=== PATIENT | female | born 1975 | race Caucasian/White ===

== ENCOUNTER 2021-02-21 19:16 | Emergency (ER) | payer OTHER, SELFPAY ==
--- NOTE | ~2021-02-21 | XR_ITS ---
XR foot LT min 3V DATE: 02/21/2021 19:38 INDICATION: Chair dropped on top of foot. Pain of first metatarsal. TECHNIQUE: 4 views COMPARISON: 06/03/2011 left foot FINDINGS: No fracture or dislocation, periosteal reaction or bone destruction. IMPRESSION: Negative Reviewed, dictated and finalized at location A. IMPRESSION: Negative
--- NOTE | 2021-02-21 19:27 | ED.LOWEXIN ---
HPI - Extremity Injury (Lower) General Chief Complaint: Extremity Injury, Lower Stated Complaint: left foot injury Time Seen by Provider: 02/21/21 19:27 Source: patient and RN notes reviewed Mode of arrival: ambulatory Limitations: no limitations History of Present Illness HPI Narrative: 46-year-old female presents to the [facility] with complaints of left dorsal aspect foot pain after dropping a chair on her foot. Patient states the pain feels like when she broke her other foot. Has full range of motion. Is limping favoring the left foot. Positive pedal pulse. Sensation intact in all 5 toes. Capillary refill under 2 seconds Related Data Home Medications Medication Instructions Recorded Confirmed No Home Medications 02/21/21 02/21/21 Allergies Allergy/AdvReac Type Severity Reaction Status Date / Time codeine Allergy Mild Nausea and Verified 03/02/19 17:12 Vomiting latex Allergy Mild Verified 03/02/19 17:12 naproxen Allergy Mild Verified 03/02/19 17:12 nitrofurantoin Allergy Mild Nausea and Verified 03/02/19 17:12 Vomiting tramadol Allergy Mild Verified 03/02/19 17:12 ibuprofen Allergy Unknown Verified 03/02/19 17:12 prednisone Allergy Unknown Verified 03/02/19 17:12 Review of Systems Review of Systems: All systems reviewed & are unremarkable except as noted in HPI and below Constitutional: Constitutional: Reports no additional constitutional complaints Eyes: Eyes: Reports no additional eye complaints ENT: Reports system reviewed and no additional complaints, except as documented Cardiovascular: Cardiovascular: Reports no additional cardiovascular complaints Respiratory: Respiratory: Reports no additional respiratory complaints Musculoskeletal: Musculoskeletal: Reports as per HPI (Dorsal aspect left foot), Denies arthralgias and Denies joint swelling Comments: Pain dorsal aspect left foot Integumentary/Breasts: Skin/Breast: Reports system reviewed and no additional complaints, except as docu Neurologic: Reports system reviewed and no additional complaints, except as documented Psychiatric: Psychiatric: Reports no additional psychiatric complaints PMFSH Social History Social History Gender identity (if verbalized by the patient): Female Comments At the time of my signature, I reviewed and agree with the nursing past medical, surgical, social, and family history. There is no relevant family history pertinent to the patient complaint. Exam Const: General: healthy appearing, no acute distress and alert Nutritional Appearance: well nourished Orientation/consciousness: patient oriented x3 HENMT: Head: normal to inspection Neck: Neck: normal visual inspection, no lymphadenopathy and no meningeal signs Chest: Chest palpation & inspection: normal inspection of the chest Resp: Effort & Inspection: normal respiratory effort and no use of accessory muscles Cardio: Rate: regular rate Rhythm: regular rhythm Skin: General skin exam: normal color Rashes: no rashes Wounds: no wounds Neuro: General: patient oriented x3, moves all extremities and no meningeal signs Speech: normal speech Gait exam (Neuro): Normal gait present Extrem: General: normal to inspection Left lower extremity: full ROM, normal capillary refill and foot Details: normal capillary refill, tenderness Location: of the dorsal foot Location: medially and of the medial foot, ecchymosis and vascular exam Details: dorsalis pedis pulse present and normal capillary refill; no edema, no abrasions and no lacerations; no edema and joint enlargement noted Ankle/foot/toe images: 1. Bruising and tenderness noted Psych: Appearance: grossly normal and well kempt Mental Status: mental status grossly normal Affect: normal affect Attitude: cooperative Thought content: Yes Normal thought content present Course Vital Signs Vital signs: Vital Signs Temperature 97.7 F 02/21/
[2021-02-21 19:32] VITALS: BP 141/95; PULSE 85; RESP 20; TEMP 36.5; O2SAT 99
== END 2021-02-21 19:49 | disposition home or self-care (01) ==
PROVIDERS: Emergency Provider Nurse Practitioner; PCP Nurse Practitioner Family
DX: S90.32XA Contusion of left foot, initial encounter (principal); W20.8XXA Other cause of strike by thrown, projected or falling object, initial encounter
CPT/HCPCS: 73630; 99213; G0463

== ENCOUNTER 2022-06-28 14:43 | Outpatient (CLI) | payer OTHER, SELFPAY ==
--- NOTE | ~2022-06-28 | XR_ITS ---
XR lumbar spine 2-3V 06/28/2022 15:11 Indication: Back pain Procedure: 3 views lumbar spine Comparison: No prior studies for comparison. Findings: Normal lumbar lordosis. There are laminectomy changes at L5. Vertebral body heights are gilmar ntained. No significant disc narrowing. No acute fracture or traumatic malalignment. Sacral foramen a re symmetric. There is an IUD in the pelvis. Impression: 1: No significant abnormality of the lumbar spine. Reviewed, dictated and finalized at location A. Impression: 1: No significant abnormality of the lumbar spine.
--- NOTE | ~2022-06-28 | XR_ITS ---
XR thoracic spine 3V 06/28/2022 15:10 Indication: Back pain Procedure: 4 views thoracic spine Comparison: No prior studies for comparison. Findings: There is mild levoscoliosis of the thoracic spine. Vertebral body heights are maintained. P edicles intact. No paraspinal soft tissue abnormality. Surrounding osseous structures are unremarkabl e. There are cholecystectomy clips. Impression: 1: Mild levoscoliosis. Reviewed, dictated and finalized at location A. Impression: 1: Mild levoscoliosis.
--- NOTE | ~2022-06-28 | XR_ITS ---
XR cervical spine 4-5V 06/28/2022 15:10 Indication: Neck pain Procedure: 4 view cervical spine Comparison: 01/17/2012 Findings: There is normal alignment of the cervical spine. Vertebral body and disc heights are preser lele. No prevertebral soft tissue swelling. Lung apices are normal. Odontoid process is normal. Impression: 1: No significant abnormality of the cervical spine. Reviewed, dictated and finalized at location A. Impression: 1: No significant abnormality of the cervical spine.
--- NOTE | ~2022-06-28 | XR_ITS ---
XR shoulder LT min 2V 06/28/2022 15:11 INDICATION: Left shoulder pain PROCEDURE: 4 views left shoulder COMPARISON: No prior studies for comparison. FINDINGS: Fracture, dislocation or subluxation is not identified. The soft tissues appear within norm al limits. No foreign bodies are identified. IMPRESSION: 1: NO ACUTE BONE OR JOINT ABNORMALITY IDENTIFIED. Reviewed, dictated and finalized at location A.
== END 2022-06-28 14:44 | disposition home or self-care (01) ==
PROVIDERS: PCP Nurse Practitioner Family; Visit Provider Nurse Practitioner Family
DX: M25.512 Pain in left shoulder (principal); R20.2 Paresthesia of skin; M54.9 Dorsalgia, unspecified; Z97.5 Presence of (intrauterine) contraceptive device; M41.9 Scoliosis, unspecified; M54.2 Cervicalgia; M54.6 Pain in thoracic spine
CPT/HCPCS: 72050; 72072; 72100; 73030

== ENCOUNTER 2022-10-03 10:26 | Outpatient (CLI) | payer OTHER, SELFPAY ==
--- NOTE | ~2022-10-03 | MM_ITS ---
EXAMINATION: MM screening keenan BI w socorro HISTORY: Screening mammogram TECHNIQUE: Craniocaudal and mediolateral oblique 3-D tomosynthesis images were obtained and synthetic 2-D images were generated. CAD analysis was submitted and interpreted. COMPARISON: 02/22/2017 bilateral screening mammogram BREAST PARENCHYMAL COMPOSITION: The breasts are almost entirely fatty. FINDINGS: There is no evidence of suspicious mass, calcification, or architectural distortion to sugg est malignancy in either breast. There has been no suspicious interval change. IMPRESSION: 1. No mammographic evidence of malignancy. 2. Recommend routine screening mammography in one year. BI-RADS Category 1: Negative Reviewed, dictated and finalized at location A. M1A1 [employer]MAN
== END 2022-10-03 10:27 | disposition home or self-care (01) ==
LOC: ANHIMG 10:28
PROVIDERS: PCP Nurse Practitioner Family; Visit Provider Nurse Practitioner Family
DX: Z12.31 Encounter for screening mammogram for malignant neoplasm of breast (principal)
CPT/HCPCS: 77063; 77067

== ENCOUNTER 2022-10-10 09:52 | Outpatient (CLI) | payer OTHER, SELFPAY ==
--- NOTE | ~2022-10-10 | DEXA_ITS ---
Bone Density Report Name: JACINTA JACKSON Age: 47 Sex: Female Ethnicity: White Date of : 1975 Indication: postmenopausal; height loss; inflammatory bowel disease; cancer; Referring Provider: JW, ES Weiss Study: Bone densitometry was performed. Exam Date: October 10, 2022 Accession number: [id number] Bone Density: Region BMD T-score Z-score Classification AP Spine(L1-L4) 0.937 -1.0 -0.5 Normal Femoral Neck (Left) 0.695 -1.4 -0.9 Osteopenia Total Hip (Left) 0.916 -0.2 0.1 Normal Femoral Neck (Right) 0.677 -1.6 -1.1 Osteopenia Total Hip (Right) 0.903 -0.3 0.0 Normal Total Hip Mean 0.909 -0.3 0.1 Normal World Health Organization criteria for BMD impression classify patients as: Normal (T-score at or above -1.0), Osteopenia (T-score between -1.0 and -2.5), or Osteoporosis (T-score at or below -2.5). 10-year Fracture Risk(1): Major Osteoporotic Fracture 3.1% Hip Fracture 0.3% Reported Risk Factors: [place] (), Neck BMD=0.677, BMI=33.4 (1) FRAX(R) Version 3.08. Fracture probability calculated for an untreated patient. Fracture probability may be lower if the patient has received treatment. Clinical Information Provided by Patient: Has used the following medications: Vitamin D Has the following medical conditions: Cancer, Inflammatory bowel diseases Patient maximum height was 68 Does not regularly consume dairy products Drinks caffeinated beverages Onset of menses at age 13 Number of children 5 Impression: The patient has low bone mass, based on the Right Femoral Neck T-score. The patient has an estimated ten-year risk of hip fracture of 0.3% and an estimated ten-year risk of major fracture of 3.1%, based on the WHO FRAX algorithm. Discussion: BONE DENSITY IS LOW AT ONE OR MORE SKELETAL SITES. This patient's lowest T-score is low at one or more skeletal sites. It meets the World Health Organization's (WHO) criteria for ?low bone mass? (T-score between -1.0 and -2.5). The patient's 10-year risk of fracture as calculated by FRAX is less than the threshold where pharmacological therapy is recommended by the National Osteoporosis Foundation (NOF). However, all treatment decisions require clinical judgment and consideration of individual patient factors, including patient preferences, comorbidities, previous drug use, risk factors not captured in the FRAX model (e.g., frailty, falls, vitamin D deficiency, increased bone turnover, interval significant decline in bone density) and possible under or overestimation of fracture risk by FRAX. The patient should follow a healthful lifestyle (good nutrition with adequate calcium and vitamin D, and appropriate weight-bearing exercise). Follow-Up: Consider repeating this study in 2 to 3 years to reassess this patient's st
== END 2022-10-10 09:53 | disposition home or self-care (01) ==
LOC: ANHIMG 09:53
PROVIDERS: PCP Nurse Practitioner Family; Visit Provider Nurse Practitioner Family
DX: Z78.0 Asymptomatic menopausal state (principal); M85.852 Other specified disorders of bone density and structure, left thigh; M85.851 Other specified disorders of bone density and structure, right thigh
CPT/HCPCS: 77080

== ENCOUNTER 2023-06-22 17:37 | Emergency (ER) | payer OTHER, SELFPAY ==
[2023-06-22 17:48] VITALS: BP 138/87; PULSE 79; RESP 18; TEMP 36.4; O2SAT 100
--- NOTE | 2023-06-22 18:04 | ED.GENADULT ---
HPI - General Adult General Chief complaint: Anxiety Stated complaint: anxiety Time Seen by Provider: 06/22/23 17:55 Source: patient and RN notes reviewed Mode of arrival: ambulatory Limitations: no limitations History of Present Illness HPI narrative: Patient presents today complaining of intermittent anxiety that has been worse over the past 2 weeks. Anxiety symptoms include head pressure, ?pins and needles in her finger tips, palpitations, racing mind. Denies depression, SI, HI. Patient states that she has an old prescription of Xanax from 2017 that she has been using intermittently, but is currently out. She does not have an appointment with her PCP for 2 weeks and is wondering if she can receive a prescription for some medication that may help her out until that time. Related Data Allergies Allergy/AdvReac Type Severity Reaction Status Date / Time codeine Allergy Mild Nausea and Verified 03/02/19 17:12 Vomiting latex Allergy Mild Verified 03/02/19 17:12 naproxen Allergy Mild Verified 03/02/19 17:12 nitrofurantoin Allergy Mild Nausea and Verified 03/02/19 17:12 Vomiting tramadol Allergy Mild Verified 03/02/19 17:12 ibuprofen Allergy Unknown Verified 03/02/19 17:12 prednisone Allergy Unknown Verified 03/02/19 17:12 Review of Systems Review of Systems: CONSTITUTIONAL: Denies body aches, fever, chills, or sweats. EYES: Denies visual changes, redness, or discharge. ENT: Denies rhinorrhea, congestion, sore throat, or otalgia. CARDIOVASCULAR: Denies chest pain, palpitations, or edema. RESPIRATORY: Denies cough or dyspnea. GASTROINTESTINAL: Denies abdominal pain, nausea, vomiting, or diarrhea. GENITOURINARY: Denies dysuria or hematuria. SKIN: Denies rash, itching, or wounds. MUSCULOSKELETAL: Denies back pain, joint pain, or myalgia. NEUROLOGIC: Denies headache, numbness, tingling, or weakness. PSYCH: + anxiety PMFSH Social History Social History Gender identity (if verbalized by the patient): Female Comments At time of signature, I have reviewed and agree with nursing past medical, surgical, social and family history unless otherwise noted. Please see nursing chart for further information. There is no relevant family history pertinent to the presenting complaint Exam Narrative: GENERAL: Well-appearing, well-nourished, and in no acute distress. HEAD: Normocephalic, atraumatic. EYES: EOMI. No redness or drainage. Conjunctivae normal. ENT: Mucous membranes pink and moist. NECK: Normal AROM. CHEST: No respiratory distress. Clear to auscultation. HEART: Regular rate and rhythm. No murmur appreciated. Normal peripheral pulses. EXTREMITIES: Normal range of motion. No edema. SKIN: Warm, dry, no rash. Capillary refill normal. Normal skin turgor. NEURO: No focal deficits. Alert and oriented x3. Gait steady. PSYCH: Normal affect. No signs of depression or anxiety. Course Course Level of Care: [facility] Visit Vital Signs Vital signs: Vital Signs Temperature 97.5 F L 06/22/23 17:48 Pulse Rate 79 06/22/23 17:48 Respiratory Rate 18 06/22/23 17:48 Blood Pressure 138/87 06/22/23 17:48 Pulse Oximetry 100 06/22/23 17:48 Oxygen Delivery Room Air 06/22/23 17:48 Temperature 97.5 F L 06/22/23 17:48 Pulse Rate 79 06/22/23 17:48 Respiratory Rate 18 06/22/23 17:48 Blood Pressure 138/87 06/22/23 17:48 Pulse Oximetry 100 06/22/23 17:48 Oxygen Delivery Room Air 06/22/23 17:48 Reviewed. Pt has been instructed to follow up with her PCP regarding her elevated blood pressure today. Medical Decision Making MDM Narrative Medical decision making narrative: Discussed with patient that Xanax and other benzodiazepines are not typically prescribed at [facility]. Agrees with plan for prescription for doxycycline and will follow-up with her PCP as soon as possible for further treatment. Anticipatory gu
== END 2023-06-22 18:15 | disposition home or self-care (01) ==
PROVIDERS: Emergency Provider Nurse Practitioner; PCP Nurse Practitioner Family
DX: F41.9 Anxiety disorder, unspecified (principal)
CPT/HCPCS: 99213; G0463

== ENCOUNTER 2023-10-07 15:44 | Emergency (ER) | payer OTHER, SELFPAY ==
[2023-10-07 16:25] VITALS: BP 129/90; PULSE 72; RESP 16; TEMP 37.4; O2SAT 99
--- NOTE | 2023-10-07 16:34 | PC.NURSE ---
pt states she started prozac and amitriptyline four days ago and is concerned that she has serotonin syndrome. Pt is with family member.
--- NOTE | 2023-10-07 17:36 | ED.GENADULT ---
HPI - General Adult General Chief complaint: Psychiatric Symptoms <Marcos Hopkins PA-C - Last Filed: 10/07/23 17:40> Stated complaint: MED REACTION, HASN'T SLEPT IN 20 DAYS <Marcos Hopkins PA-C - Last Filed: 10/07/23 17:40> Time Seen by Provider: 10/07/23 17:36 <Marcos Hopkins PA-C - Last Filed: 10/07/23 17:40> Source: patient <Marcos Hopkins PA-C - Last Filed: 10/07/23 17:40> Mode of arrival: ambulatory <LATRICIA Rajan Last Filed: 10/07/23 17:40> Limitations: no limitations <Marcos Hopkins PA-C - Last Filed: 10/07/23 17:40> History of Present Illness HPI narrative: This is a 48-year-old female who presents to the ED with chief complaint of extreme anxiety for the past month. Reports that she has been dealing with any increasing anxiety ever since mid August. She states that she has not slept in 20 days. Reports that her PCP started her on Prozac a few days ago. She as been trying hydroxyzine, zolpidem, trazodone over the last month for sleeping without relief. Endorses palpitations and whole-body tingling. Endorses ?intrusive thoughts and ?about falling asleep and never waking up. She states she would never harm herself because she has kids. Denies fevers, chills, chest pain, shortness of breath, abdominal pain, vomiting, diarrhea. History of thyroidectomy. <Marcos Hopkins PA-C - Last Filed: 10/07/23 17:40> Related Data Allergies/adverse reactions: Allergies Allergy/AdvReac Type Severity Reaction Status Date / Time codeine Allergy Mild Nausea and Verified 09/25/23 13:10 Vomiting latex Allergy Mild Unknown Verified 09/25/23 13:10 naproxen Allergy Mild Unknown Verified 09/25/23 13:10 nitrofurantoin Allergy Mild Nausea and Verified 09/25/23 13:10 Vomiting tramadol Allergy Mild Unknown Verified 09/25/23 13:10 ibuprofen Allergy Unknown Unknown Verified 09/25/23 13:10 prednisone Allergy Unknown Unknown Verified 09/25/23 13:10 <Marcos Hopkins PA-C - Last Filed: 10/07/23 17:40> Review of Systems Review of Systems: All systems as dictated in HPI <LATRICIA Rajan Last Filed: 10/07/23 17:40> PMFSH Past Medical History Medical History: Medical History (Updated 10/07/23 @ 19:41 by Tiago Noble MD) Abdominal discomfort Early satiety Weight loss <Marcos Hopkins PA-C - Last Filed: 10/07/23 17:40> Social History Social History: Social History Smoking status: Never smoker Substance use type: does not use Gender identity (if verbalized by the patient): Female <Marcos Hopkins PA-C - Last Filed: 10/07/23 17:40> Exam Narrative: GENERAL: Well-appearing, well-nourished, and in no acute distress. HEAD: Normocephalic, atraumatic. EYES: PERRLA and EOMI. ENT: Nares clear, no rhinorrhea or epistaxis. Mucous membranes moist. Oropharynx without tonsillar hypertrophy exudate or other lesions. NECK: Supple. No adenopathy or masses. CHEST: No respiratory distress. Clear to auscultation. No wheezes rales or rhonchi HEART: Regular rate and rhythm. No murmur heard. Normal peripheral pulses. ABDOMEN: Soft, nontender, nondistended, normal active bowel sounds. MSK: Normal range of motion. No edema. SKIN: Warm, dry, no rash. NEURO: Alert and oriented x3. No focal deficits. PSYCH: Anxious mood. Blunted affect. Verbalizes passive suicidal ideations. No SI plan. no HI. No delusion or hallucination. <Macros Hopkins PA-C - Last Filed: 10/07/23 17:40> Course Vital Signs Vital signs: Vital Signs Temperature 99.3 F 10/07/23 16:25 Pulse Rate 72 10/07/23 16:25 Respiratory Rate 16 10/07/23 16:25 Blood Pressure 129/90 10/07/23 16:25 Pulse Oximetry 99 10/07/23 16:25 Oxygen Delivery Room Air 10/07/23 16:25 Temperature 99.3 F 10/07/23 16:25 Pulse Rate 72 10/07/23 16:25 Respiratory Rate 16 10/07/23 16:25 Blood Pressure 129/90 10/07/23
[2023-10-07 18:07] LABS: Basophils Absolute Auto 0.1 K/mm3 (0.0-0.1); Basophils Percent Auto 0.8 % (0.2-1.2); Eosinophils Percent Auto 0.4 % (0-4.4); Hematocrit 46.5 % (37.0-47.0); Hemoglobin 15.1 g/dL (12.0-15.0); Immature Granulocyte Absolute 0.02 K/mm3 (0.00-0.031); Immature Granulocyte Percent A 0.3 % (0-0.5); Lymphocytes Absolute Auto 2.35 K/mm3 (0.9-3.2); Lymphocytes Percent Auto 32.5 % (18.3-44.2); Mean Corpuscular HGB Conc 32.5 g/dl (32-36); Mean Corpuscular Hemoglobin 30.9 pg (26-34); Mean Corpuscular Volume 95.1 fl (80-100); Mean Platelet Volume 10.9 fl (7.4-10.4); Monocytes Absolute Auto 0.5 K/mm3 (0.1-0.6); Monocytes Percent Auto 7.5 % (2.6-8.5); Neutrophils Absolute Auto 4.2 K/mm3 (1.3-6.7); Neutrophils Percent Auto 58.5 % (45.5-73.1); Platelet Count Result 302 k/mm3 (150-375); Red Blood Count 4.89 M/mm3 (4.2-5.4); Red Cell Distribution Width 12.2 % (11.5-14.5); White Blood Count 7.2 K/mm3 (4.5-10.0)
[2023-10-07 18:12] LABS: Appearance Urine Cloudy (Clear); Bacteria Urine None Seen /hpf; Bilirubin Urine Negative (Negative); Blood Urine Negative (Negative); Color Urine Yellow (Yellow); Glucose Urine UA Negative (Negative); Ketones Urine Negative (Negative); Leukocyte Esterase Ur Negative LEU/UL (Negative); Nitrate Urine Negative (Negative); Non Pathogenic Casts 0-2; Protein Urine Negative (Negative); RBC Urine 0-2 /hpf (0-2); Specific Grav Ur 1.011 (1.001-1.035); Squamous Epithelial Cell Urine None seen /hpf (Few); Urobilinogen Urine 0.2 mg/dL (<2.0); WBC Urine 0-5 /hpf
[2023-10-07 18:19] LABS: Add Urine Microscopic? YES
[2023-10-07 18:20] LABS: Acetaminophen < 10 ug/mL (10-30); Ethanol < 10 mg/dL (<10); Salicylate < 1.0 mg/dL (2-20)
[2023-10-07 18:25] LABS: Anion Gap 5 mmol/L (8-16); Blood Urea Nitrogen 8 mg/dL (7-17); Calcium 9.7 mg/dL (8.4-10.2); Carbon Dioxide 32 mmol/L (22-30); Chloride 102 mmol/L (98-107); Estimated Glomerular Filt Rate > 60; Glucose 94 mg/dL (65-110); Potassium 3.9 mmol/L (3.4-5.0); Sodium 139 mmol/L (137-145)
[2023-10-07 18:38] LABS: Barbiturate Screen Urine Negative (Negative); Benzodiazepines Screen Urine Negative (Negative)
[2023-10-07 18:42] LABS: Amphetamine Screen Urine Negative (Negative); Cannabinoid Screen Urine Positive (Negative); Cocaine Screen Urine Negative (Negative); Methadone Screen Urine Negative (Negative); Opiate Screen Urine Negative (Negative)
[2023-10-07 18:48] LABS: Phencyclidine Screen Urine Negative (Negative)
[2023-10-07] MEDS: LORazepam (*CRX) 1 MG TABLET PO (19:51)
[2023-10-07 20:03] VITALS: BP 120/82; PULSE 84; RESP 15; O2SAT 100
== END 2023-10-07 20:04 | disposition home or self-care (01) ==
PROVIDERS: Physician Assistant; Emergency Provider Emergency Medicine; PCP Family Medicine
DX: F41.9 Anxiety disorder, unspecified (principal); G47.00 Insomnia, unspecified; I45.10 Unspecified right bundle-branch block
CPT/HCPCS: 36415; 80048; 80307; 81001; 81025; 84443; 85025; 93005; 99283; A9270

== ENCOUNTER 2023-10-09 15:36 | Emergency (ER) | payer OTHER, SELFPAY ==
[2023-10-09 16:07] VITALS: BP 111/83; PULSE 80; RESP 20; TEMP 36.6; O2SAT 99
[2023-10-09 18:33] VITALS: BP 126/88; PULSE 82; RESP 18; TEMP 36.3; O2SAT 100
--- NOTE | 2023-10-09 19:40 | ED.GENADULT ---
HPI - General Adult General Chief complaint: Unspecified Stated complaint: havent slept Time Seen by Provider: 10/09/23 18:31 History of Present Illness HPI narrative: 48-year-old female with history of anxiety and insomnia reports for evaluation for continued anxiety and insomnia. Patient was seen in our ER 2 days ago for the same issue. Patient states she has not been able to sleep since September 08. She was given a dose of Ativan 1 mg which allowed her to sleep that night . She was sent home with hydroxyzine which he states has not been helping. She followed up with her PCP office the next day referred her to psychiatrist and gave her 1 0.5mg dose of Ativan which did not provide relief.. Patient saw his psychiatrist today and had blood work done. She was told that she cannot be started on any medications until the blood work comes back and has a follow-up appointment scheduled in 2 weeks. The patient states she is extremely anxious and having difficulty sleeping and is requesting more Ativan. She reports a prior prescription for Xanax by a previous PCP but she has run out of. She is currently taking Prozac 10 mg. Patient states she has tried trazodone, hydroxyzine, Ambien, Benadryl, Unisom, CBT without relief. She is also following with a counselor. Denies alcohol or drug use, denies visual or auditory hallucinations, denies SI or HI. Related Data Allergies Allergy/AdvReac Type Severity Reaction Status Date / Time codeine Allergy Mild Nausea and Verified 10/09/23 16:11 Vomiting latex Allergy Mild Unknown Verified 10/09/23 16:11 naproxen Allergy Mild Unknown Verified 10/09/23 16:11 nitrofurantoin Allergy Mild Nausea and Verified 10/09/23 16:11 Vomiting tramadol Allergy Mild Unknown Verified 10/09/23 16:11 ibuprofen Allergy Unknown Unknown Verified 10/09/23 16:11 prednisone Allergy Unknown Unknown Verified 10/09/23 16:11 Review of Systems Review of Systems: CONSTITUTIONAL: Denies fever, chills, or sweats. EYES: Denies visual changes, redness, or discharge. ENT: Denies rhinorrhea, congestion, sore throat, or otalgia. CARDIOVASCULAR: Denies chest pain, palpitations, or edema. RESPIRATORY: Denies cough or dyspnea. GASTROINTESTINAL: Denies abdominal pain, nausea, vomiting, or diarrhea. GENITOURINARY: Denies dysuria or hematuria. SKIN: Denies rash or itching. MUSCULOSKELETAL: Denies back pain, joint pain, or myalgia. NEUROLOGIC: Denies headache, numbness, or weakness. PSYCHIATRIC: See HPI PMF Past Medical History Medical History Abdominal discomfort Early satiety Weight loss Social History Social History Smoking status: Never smoker Substance use type: does not use Gender identity (if verbalized by the patient): Female Exam Narrative: GENERAL: Well-appearing, well-nourished, and in no acute distress. HEAD: Normocephalic, atraumatic. NECK: Supple. CHEST: Clear to auscultation. No respiratory distress. HEART: Regular rate and rhythm. No murmur heard. Normal peripheral pulses. EXTREMITIES: Normal range of motion. No edema. SKIN: Warm, dry, no rash. NEURO: No focal deficits. Alert and oriented x3 PSYCH: Anxious appearing. Good insight. No hallucinations. No SI/H. Course Vital Signs Vital signs: Vital Signs Temperature 97.8 F 10/09/23 16:07 Pulse Rate 80 10/09/23 16:07 Respiratory Rate 20 10/09/23 16:07 Blood Pressure 111/83 10/09/23 16:07 Pulse Oximetry 99 10/09/23 16:07 Oxygen Delivery Room Air 10/09/23 16:07 Temperature 97.4 F L 10/09/23 18:33 Pulse Rate 82 10/09/23 18:33 Respiratory Rate 18 10/09/23 18:33 Blood Pressure 126/88 10/09/23 18:33 Pulse Oximetry 100 10/09/23 18:33 Oxygen Delivery Room Air 10/09/23 16:07 Medical Decision Making MDM Narrative Medical decision making narrative: 48 y/o F with a hx of anxiety an
[2023-10-09] MEDS: LORazepam (*CRX) 1 MG TABLET PO (20:03)
== END 2023-10-09 20:07 | disposition home or self-care (01) ==
PROVIDERS: Emergency Provider Physician Assistant
DX: F41.9 Anxiety disorder, unspecified (principal)
CPT/HCPCS: 99283; A9270

== ENCOUNTER 2023-10-10 14:57 | Outpatient (CLI) | payer OTHER, SELFPAY ==
--- NOTE | ~2023-10-10 | CT_ITS ---
EXAMINATION: CT abdomen pelvis w con DATE: 10/10/2023 15:37 INDICATION: 80 pound weight loss and 5 months. Early satiety. Nausea. Constipation. TECHNIQUE: Computed tomography (CT) of the abdomen and pelvis was performed with 100 CC Omnipaque 350 intravenous contrast. Automated exposure control and iterative reconstruction technique were employe d. Exam dose: 386.57 mGy-cm total exam DLP. COMPARISON: 02/07/2014 CT abdomen pelvis FINDINGS: The lung bases are clear. Normal heart size. No pericardial or pleural effusion. Status post cholecystectomy. The liver, spleen, pancreas and the pancreatic and bile ducts are unrema rkable. Normal morphology of the adrenal glands. There are scattered multiple bilateral small cysts in one large exophytic upper pole cyst of the left kidney measuring up to 5.6 cm. r approximately 2.5 mm nonobstructing upper medial right renal calculus. Pinpoint nonobstructing lower pole left renal calculus. Mild persistent lobation and/or mild scarring of the kidneys. Approximately 2.7 x 3.5 cm left ovarian cyst. The uterus, adnexal areas and urinary bladder are other fuller unremarkable. Normal caliber of the abdominal aorta. No intraperitoneal or retroperitoneal or pelvic mass lesion or adenopathy or ascites. Normal appendix. There is a prominent amount of fecal material within the colon. No bowel obstruction , bowel wall thickening, pneumatosis or intraperitoneal free air. T12 benign hemangioma. Included skeletal structures are otherwise unremarkable. IMPRESSION: Status post cholecystectomy Scattered bilateral renal cysts Bilateral nonobstructive nephrolithiasis 2. 73.5 cm left ovarian cyst Normal appendix Reviewed, dictated and finalized at [facility]. Reviewed, dictated and finalized at [facility] [employer]
== END 2023-10-10 14:58 | disposition home or self-care (01) ==
LOC: ANHIMG 14:59
PROVIDERS: Visit Provider Nurse Practitioner Family
DX: R68.81 Early satiety (principal); R10.9 Unspecified abdominal pain; R63.4 Abnormal weight loss; Z90.49 Acquired absence of other specified parts of digestive tract; N28.1 Cyst of kidney, acquired; N20.0 Calculus of kidney; N83.202 Unspecified ovarian cyst, left side
CPT/HCPCS: 74177; 97110; 97530; Q9967

== ENCOUNTER 2023-10-14 11:37 | Emergency (ER) | payer OTHER, SELFPAY ==
[2023-10-14 11:45] VITALS: BP 125/81; PULSE 84; RESP 17; TEMP 36.5; O2SAT 100
[2023-10-14 12:36] LABS: Acetaminophen < 10 ug/mL (10-30); Alanine Aminotransferase 15 U/L (6-35); Albumin Level 4.5 g/dL (3.5-5.1); Alkaline Phosphatase 80 U/L (38-126); Anion Gap 7 mmol/L (8-16); Aspartate Amino Transferase 19 U/L (14-36); Bilirubin,Total 1.5 mg/dL (0.2-1.3); Blood Urea Nitrogen 6 mg/dL (7-17); Calcium 9.4 mg/dL (8.4-10.2); Carbon Dioxide 28 mmol/L (22-30); Chloride 105 mmol/L (98-107); Estimated CRCL calculation 81 ml/min; Estimated Glomerular Filt Rate > 60; Ethanol < 10 mg/dL (<10); Glucose 101 mg/dL (65-110); Potassium 4.4 mmol/L (3.4-5.0); Salicylate < 1.0 mg/dL (2-20); Sodium 140 mmol/L (137-145)
[2023-10-14 12:42] LABS: Appearance Urine Turbid (Clear); Bilirubin Urine Negative (Negative); Blood Urine Negative (Negative); Color Urine Yellow (Yellow); Glucose Urine UA Negative (Negative); Ketones Urine Negative (Negative); Leukocyte Esterase Ur Trace LEU/UL (Negative); Nitrate Urine Negative (Negative); Protein Urine Negative (Negative); Urobilinogen Urine 0.2 mg/dL (<2.0); pH Urine 7.5 (5.0-9.0)
[2023-10-14 12:47] LABS: Bacteria Urine None Seen /hpf; Non Pathogenic Casts 0-2; RBC Urine 0-2 /hpf (0-2); Squamous Epithelial Cell Urine None seen /hpf (Few); WBC Urine 0-5 /hpf
[2023-10-14 12:49] LABS: Add Urine Microscopic? YES
[2023-10-14 13:15] LABS: SARS-CoV-2 RNA PCR Negative (Negative)
[2023-10-14 13:44] LABS: Amphetamine Screen Urine Negative (Negative); Barbiturate Screen Urine Negative (Negative); Benzodiazepines Screen Urine Negative (Negative); Cannabinoid Screen Urine Positive (Negative); Cocaine Screen Urine Negative (Negative); Methadone Screen Urine Negative (Negative); Opiate Screen Urine Negative (Negative); Phencyclidine Screen Urine Negative (Negative)
--- NOTE | 2023-10-14 14:21 | ED.PSYCH ---
HPI - Psych General Chief Complaint: Psychiatric Symptoms Stated Complaint: si Time Seen by Provider: 10/14/23 12:39 History of Present Illness HPI Narrative: Patient is a 48-year-old female presenting for psychiatric evaluation. Patient states that she has been struggling with severe insomnia for the last several weeks. She has been seen here a couple of times and given short courses of Ativan which does help her sleep. States that she has an appointment with a new psychiatrist on Saturday but she needs help to get her through until then. States that she was having thoughts of hurting herself but she thinks it was just related to her sleep deprivation. States that she is not suicidal or homicidal. Related Data Allergies Allergy/AdvReac Type Severity Reaction Status Date / Time codeine Allergy Mild Nausea and Verified 10/09/23 16:11 Vomiting latex Allergy Mild Unknown Verified 10/09/23 16:11 naproxen Allergy Mild Unknown Verified 10/09/23 16:11 nitrofurantoin Allergy Mild Nausea and Verified 10/09/23 16:11 Vomiting tramadol Allergy Mild Unknown Verified 10/09/23 16:11 ibuprofen Allergy Unknown Unknown Verified 10/09/23 16:11 prednisone Allergy Unknown Unknown Verified 10/09/23 16:11 Review of Systems Review of Systems: All systems reviewed & are unremarkable except as noted in HPI and below PMFSH Past Medical History Medical History Abdominal discomfort Early satiety Weight loss Social History Social History Smoking status: Never smoker Substance use type: does not use Gender identity (if verbalized by the patient): Female Exam Narrative: GENERAL: Nontoxic, no acute distress, pleasant and cooperative HEAD: Normocephalic, atraumatic. EYES: PERRLA and EOMI. ENT: grossly unremarkable NECK: Supple. CHEST: No respiratory distress. HEART: Regular rate and rhythm EXTREMITIES: Normal range of motion. SKIN: Warm, dry, no rash. NEURO: No focal deficits. Alert and oriented x3. PSYCH: Normal mood and affect. denies SI/HI Course Vital Signs Vital signs: Vital Signs Temperature 97.7 F 10/14/23 11:45 Pulse Rate 84 10/14/23 11:45 Respiratory Rate 17 10/14/23 11:45 Blood Pressure 125/81 10/14/23 11:45 Pulse Oximetry 100 10/14/23 11:45 Oxygen Delivery Room Air 10/14/23 11:45 Temperature 97.7 F 10/14/23 11:45 Pulse Rate 84 10/14/23 11:45 Respiratory Rate 17 10/14/23 11:45 Blood Pressure 125/81 10/14/23 11:45 Pulse Oximetry 100 10/14/23 11:45 Oxygen Delivery Room Air 10/14/23 11:45 MDM - Psych MDM Narrative Medical decision making narrative: 48-year-old female presenting with severe insomnia. vitals are stable. Blood work unremarkable. Patient is medically clear. Evaluated by crisis, she is safe for discharge home. She has an appointment with her psychiatrist next week. She denies SI or HI. Will give her 5 pills of Ativan to help with her sleep but I made very clear that this is a controlled substance and we will not continue to prescribe it. She voices understanding, she is agreeable this plan. She also has an appointment coming up with primary care next week. Appropriate return precautions given. Discharged in stable condition. Differential Diagnosis Differential diagnosis: Likely depression, acute anxiety and other ( Insomnia) Medical Records Attestation: I reviewed the patient's medical records. Lab Data Attestation: I reviewed the patient's lab results. 10/14/23 12:13 Labs: Lab Results 10/14/23 Range/Units 12:13 Sodium 140 (137-145) mmol/L Potassium 4.4 (3.4-5.0) mmol/L Chloride 105 (98-107) mmol/L Carbon Dioxide 28 (22-30) mmol/L Anion Gap 7 L (8-16) mmol/L BUN 6 L (7-17) mg/dL Creatinine 0.70 (0.7-1.0) mg/dL Estim Creat Clear Calc 81 ml/min Estimated GFR >
== END 2023-10-14 17:52 | disposition home or self-care (01) ==
PROVIDERS: Emergency Medicine; Emergency Provider Emergency Medicine; PCP Emergency Medicine
DX: G47.00 Insomnia, unspecified (principal); F41.9 Anxiety disorder, unspecified; Z11.52 Encounter for screening for COVID-19
CPT/HCPCS: 36415; 80053; 80307; 81001; 81025; 84443; 87635; 99284

== ENCOUNTER 2023-10-16 13:30 | Outpatient (RCR) | payer OTHER, SELFPAY ==
--- NOTE | 2023-10-02 14:28 | OPREHPOC ---
Outpatient Therapy Plan of Care This is a Multidisciplinary Plan of Care that may contain components documented by all disciplines (PT, OT, and ST.) PT Problem 1 PT Problem #1 Knowledge Deficit PT Goal 1 Goal 1* indep with HEP 2* vocalize good safety techniques PT Problem 2 PT Problem #2 Impaired Vestibular Syste PT Goal 1 Goal improve vestibular system, pt able to perform without an increase in dizziness/vestibular s/s: 1* sitting eye tracking R/L 20x 2* sitting eye tracking up/down 20x 3* gaze stabilization with head motion R/L x 20 4* gaze stabilization with head motion up/down x 20 5* pt report working on computer tolerance of 2 & 1/2 hours 6* pt report driving tolerance of 2 hours 7* 2 minute walking test distance of 450' 8* Dizziness Handicap Index score of 50/100
--- NOTE | 2023-10-02 14:28 | PTOPEVAL1 ---
Assessment and note entered by Maddie Barnes, PT Evaluation Information Assessment Status Evaluation Diagnosis unsteady on feet Onset Aug 15, 2023 Subjective Information fell on Thanksgiving, tripped over cat, hit L side of head hit on wooden dresser; laid on floor , did not pass out, got up with help of her son, went to ER--concussion, contusion to face. have checked her BP at home and it is OK with dizziness and changes going on; HISTORY: ~ 2011 had post concussion syndrome, lasted about 2 years; symptoms: sensative to light, sensitive to sounds cannot focus eyes on computer screen; get weird feeling in her head, start to get light headed, and then dizziness starts; slight headache over forehead; appetite not good due to nausea. 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 Reported Pain Level Pain Score Self Report Additional Pain Score Comments headache pain 2/10; dizziness 6/10; Assessment PT Clinical Summary Nimco has the diagnosis of unsteady on her feet. She is s/p fall with concussion in July. She has improved since injury but limited working and activity tolerance--computer use, driving, walking for fitness, with sensitivity of light and sounds, with lightheaded, dizziness. She is currently working 2 hours/day, her normal work day is 8 hours. Also has insomnia and problems with sleeping. Her medical history includes concussion and migraines.
--- NOTE | 2023-10-23 13:51 | PCPTNOTE ---
pt called and canceled due to being in ER;
--- NOTE | 2023-10-30 10:49 | PCPTNOTE ---
pt called and canceled today's treatment appt.
--- NOTE | 2023-11-06 10:54 | PCPTNOTE ---
pt did not show for today's treatment, called her, she stated she had a nervous break down, is off work and trying to get her life together Discussed next week's reeval. She stated to cancel it. Informed her she can reschedule the reeval to continue with therapy, if done prior to 12-05-23.
--- NOTE | 2023-12-06 09:13 | PTOPDC ---
Assessment and note entered by Maddie Barnes, PT Discharge Information Assessment Status Discharge - Pt Not Present Diagnosis unsteady on feet Onset Aug 15, 2023 Assessment PT Clinical Summary [facility] has received 3 PT sessions, from Oct 02 to . She did not show for 1 and called/canceled 2 appointments. She will be discharged from PT at this time. The goals were not addressed. Plan of Care PT Services Indicated No
== END 2023-12-06 10:33 | disposition home or self-care (01) ==
LOC: ANHPT 13:30
PROVIDERS: PCP Nurse Practitioner Family; Visit Provider Nurse Practitioner Family
DX: R26.81 Unsteadiness on feet (principal)
CPT/HCPCS: 97110; 97161; 97530; 99199

== ENCOUNTER 2024-03-29 09:56 | Emergency (ER) | payer OTHER, SELFPAY ==
--- NOTE | ~2024-03-29 | XR_ITS ---
EXAMINATION: XR ankle RT min 3V DATE: 03/29/2024 10:21 INDICATION: Right ankle injury and pain. TECHNIQUE: 4 views of right ankle were obtained. COMPARISON: Right foot radiographs 10/18/2008 FINDINGS: Bone alignment is normal. No fracture. Joint spaces are normal. IMPRESSION: 1. No fracture. Reviewed, dictated and finalized at [facility]. IMPRESSION: 1. No fracture.
--- NOTE | 2024-03-29 10:05 | ED.EXTPRO ---
HPI - Extremity Problem General Chief complaint: Extremity Problem,Nontraumatic Stated complaint: injury to right ankle Source: patient Mode of arrival: ambulatory Limitations: no limitations History of Present Illness HPI Narrative: 49-year-old female presented for complaint of right ankle pain after injury yesterday. She states she stepped off of a step to the outside and twisted the ankle. She has been able to walk since the injury. She denies swelling, bruising, deformity, numbness, tingling, or weakness. She is unable to take Tylenol or ibuprofen, states she has been taking magnesium and arnica cream. Related Data Home Medications Medication Instructions Recorded Confirmed alprazolam 1 mg tablet 0.5 mg 03/29/24 03/29/24 quetiapine 25 mg tablet 100 mg 03/29/24 Allergies Allergy/AdvReac Type Severity Reaction Status Date / Time latex Allergy Mild Unknown Verified 11/21/23 14:56 naproxen Allergy Mild Unknown Verified 11/21/23 14:56 tramadol Allergy Mild Unknown Verified 11/21/23 14:56 ibuprofen Allergy Unknown Unknown Verified 11/21/23 14:56 prednisone Allergy Unknown Unknown Verified 11/21/23 14:56 codeine AdvReac Mild Nausea and Verified 03/29/24 10:06 Vomiting nitrofurantoin AdvReac Mild Nausea and Verified 03/29/24 10:06 Vomiting ssri AdvReac Other Uncoded 03/29/24 10:06 Review of Systems Review of Systems: CONSTITUTIONAL: Denies body aches, fever, chills EYES: Denies visual changes ENT: Denies rhinorrhea, congestion CARDIOVASCULAR: Denies chest pain, palpitations, or edema. RESPIRATORY: Denies cough or dyspnea. GASTROINTESTINAL: Denies abdominal pain, nausea, vomiting, or diarrhea. SKIN: Denies rash, itching, or wounds. MUSCULOSKELETAL: reports right ankle pain NEUROLOGIC: Denies headache, numbness, tingling, or weakness. All systems reviewed & are unremarkable except as noted in HPI and below PMFSH Past Medical History Medical History Abdominal discomfort Early satiety Weight loss Social History Social History Smoking status: Never smoker Substance use type: does not use Gender identity (if verbalized by the patient): Female Comments At time of signature, I have reviewed and agree with nursing past medical, surgical, social and family history unless otherwise noted. Please see nursing chart for further information. There is no relevant family history pertinent to the presenting complaint Exam Narrative: GENERAL: Well-appearing CHEST: Speaks in full sentences. No respiratory distress. HEART: Regular rate and rhythm. Normal and equal peripheral pulses. EXTREMITIES: Right foot and ankle has normal strength and sensation, normal range of motion at ankle. No ecchymosis, No point tenderness. Minimal swelling to the lateral malleolus. No open wounds, or obvious deformity; alignment normal, pulse palpable and equal bilaterally, skin warm, dry, pink. Capillary refill less than 3 seconds. SKIN: Warm, dry NEURO: Alert and oriented x3. PSYCH: Normal mood and affect Course Course Emergency Course: Patient is aware of diagnosis, understands and agrees to treatment plan. Anticipatory guidance given. Patient agrees to follow-up as directed and is aware of reasons to seek care at the emergency department. Portions of this record may have been created with voice recognition software Level of Care: Express Care Visit Vital Signs Vital signs: Vital Signs Temperature 97.7 F 03/29/24 10:08 Pulse Rate 87 03/29/24 10:08 Respiratory Rate 16 03/29/24 10:08 Blood Pressure 101/63 03/29/24 10:08 Pulse Oximetry 98 03/29/24 10:08 Oxygen Delivery Room Air 03/29/24 10:08 Temperature 97.7 F 03/29/24 10:08 Pulse Rate 87 03/29/24 10:08 Respiratory Rate 16 03/29/24 10:08 Blood Pressure 101/63 03/29/24 10:08 Pulse Oximetry 98 03/29/24
[2024-03-29 10:08] VITALS: BP 101/63; PULSE 87; RESP 16; TEMP 36.5; O2SAT 98
== END 2024-03-29 10:43 | disposition home or self-care (01) ==
PROVIDERS: Emergency Provider Nurse Practitioner Family; PCP Registered Nurse
DX: S96.911A Strain of unspecified muscle and tendon at ankle and foot level, right foot, initial encounter (principal); X50.9XXA Other and unspecified overexertion or strenuous movements or postures, initial encounter
CPT/HCPCS: 73610; 99213; G0463

== ENCOUNTER 2024-05-27 10:15 | Outpatient (RCR) | payer OTHER, SELFPAY ==
--- NOTE | 2024-02-28 11:37 | OPREHPOC ---
Outpatient Therapy Plan of Care This is a Multidisciplinary Plan of Care that may contain components documented by all disciplines (PT, OT, and ST.) PT Problem 1 PT Problem #1 Knowledge Deficit PT Goal 1 Goal 1. Patient will perform independent HEP 2. Patient will verbalize urge suppression strategies Target Visit 4 PT Problem 2 PT Problem #2 Pain PT Goal 1 Goal 1. No reports of pelvic pain for 1 week Target Visit 4 PT Problem 3 PT Problem #3 Impaired Strength PT Goal 1 Goal 1. Improve strength to 4/5 to decrease urgency 2. Improve endurance to 10 seconds to decrease urgency Target Visit 4 PT Problem 4 PT Problem #4 Impaired Functional ADLs PT Goal 1 Goal 1. Patient will be able to hold urge to void at least 30 minutes to allow function at work Target Visit 4
--- NOTE | 2024-02-28 11:37 | PTOPEVAL1 ---
Assessment and note entered by Viridiana Atkinson DPT Evaluation Information Assessment Status Evaluation Subjective Information Pt reports pelvic pain for about a year. States she lost 100 pounds over the last year and has noticed the pain since then. Highest pain 6/10 and lowest 0/10. Pt notices pain when laying down at night. Pain with last pelvic exam and IUD removal. History of pain with intercourse many years ago but not recently. Voids 10 times a day and 1 time at night. 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 Denies pain with urination. Incontinence with a sneeze, once a month. BM daily, up to 2-3 times a day. Pt has been 5 times, all vaginal with some tearing with 2 of them. No other [employer] history of b/b history. Gall bladder surgery in 1996. Pt reports she avoids intimacy due to the pain and is not able to do her normal exercise routine. Pt returns to work Saturday, has been on short term disability, sits at a desk most of the day. Patient goal: get rid of pain, see where this anxiety is coming from No return to MD scheduled Reported Pain Level Pain Score 0: Self Report Assessment PT Clinical Summary The patient is presenting to skilled therapy with a history of pelvic pain and urinary urgency over the past year. She presents with decreased pelvic floor strength and endurance and decreased core strength. These impairments are contributing to her symptoms and she will benefit from therapy to address strength and educate in urge suppression techniques in order to improve daily function. She reported no pelvic pain on exam this date and will continue to assess and address symptoms as needed. Plan of Care Interventions Electrical Stimulation,Hot Pack/Cold Pack,Manual Therapy,Neuro Re-education,Patient/Caregiver Education,Therapeutic Activities,Therapeutic Exercise PT Services Indicated Yes Treatment Frequency and 1 time a week for 4 visits Duration These treatments will address the objective and functional deficits as defined above. The patient will be advanced safely and appropriately in order for the patient to progress towards his/her prior level of function. Additional exercises
--- NOTE | 2024-03-18 14:22 | PCPTNOTE ---
Patient called to cancel appointment 03/18/24 due to personal conflict. Rescheduled to a later date.
--- NOTE | 2024-04-08 11:43 | OPREHPOC ---
Outpatient Therapy Plan of Care This is a Multidisciplinary Plan of Care that may contain components documented by all disciplines (PT, OT, and ST.) PT Problem 1 PT Problem #1 Knowledge Deficit PT Goal 1 Goal 1. Patient will perform independent HEP 2. Patient will verbalize urge suppression strategies Target Visit 4 Progress Met PT Problem 2 PT Problem #2 Pain PT Goal 1 Goal 1. No reports of pelvic pain for 1 week Target Visit 7 Progress Partially Met PT Problem 3 PT Problem #3 Impaired Strength PT Goal 1 Goal 1. Improve strength to 4/5 to decrease urgency 2. Improve endurance to 10 seconds to decrease urgency Target Visit 7 Progress Partially Met Comment 1. met 2. not met PT Problem 4 PT Problem #4 Impaired Functional ADLs PT Goal 1 Goal 1. Patient will be able to hold urge to void at least 30 minutes to allow function at work Target Visit 7 Progress Partially Met Comment 1. Improved to 20 minutes
--- NOTE | 2024-04-08 11:45 | PTOPPROG ---
Assessment and note entered by Viridiana Atkinson DPT Evaluation Information Assessment Status Progress Subjective Information Pt reports overall improvements with therapy and has been able to starting holding urge to void up to 20 minutes at a time. Highest pain in last week 2. Voiding about 10 times a day at the most. Reports no limitation with ADL's at this time. Assessment PT Clinical Summary The patient has made good progress in therapy and reports pain decreased to 2/10 highest. She has been able to hold urge to void up to 20 minutes at times. She demonstrates improved hip, pelvic floor, and core strength. Due to her progress but continued pain plan to continue therapy in order to restore full function. Plan of Care Interventions Electrical Stimulation,Hot Pack/Cold Pack,Manual Therapy,Neuro Re-education,Patient/Caregiver Education,Therapeutic Activities,Therapeutic Exercise PT Services Indicated Yes Treatment Frequency and 1 visit every other week x 3 visits Duration These treatments will address the objective and functional deficits as defined above. The patient will be advanced safely and appropriately in order for the patient to progress towards his/her prior level of function. Additional exercises will be introduced and as well as a comprehensive home exercise program upon discharge, if needed, ?to ensure carryover of functional gains achieved in the clinic. This treatment plan has been reviewed and agreement upon by the patient.
--- NOTE | 2024-05-13 15:56 | PCPTNOTE ---
Patient did not show up for appointment scheduled on 05/13/24. Therapist spoke with patient earlier in the day as she was originally scheduled at 11:15 and rescheduled her to 3:00.
--- NOTE | 2024-05-27 10:47 | OPREHPOC ---
Outpatient Therapy Plan of Care This is a Multidisciplinary Plan of Care that may contain components documented by all disciplines (PT, OT, and ST.) PT Problem 1 PT Problem #1 Knowledge Deficit PT Goal 1 Goal / Goal Update 1. Patient will perform independent HEP 2. Patient will verbalize urge suppression strategies Target Visit 4 Progress Met PT Problem 2 PT Problem #2 Pain PT Goal 1 Goal / Goal Update 1. No reports of pelvic pain for 1 week Target Visit 7 Progress Met PT Problem 3 PT Problem #3 Impaired Strength PT Goal 1 Goal / Goal Update 1. Improve strength to 4/5 to decrease urgency 2. Improve endurance to 10 seconds to decrease urgency Target Visit 7 Progress Partially Met PT Problem 4 PT Problem #4 Impaired Functional ADLs PT Goal 1 Goal / Goal Update 1. Patient will be able to hold urge to void at least 30 minutes to allow function at work Target Visit 7 Progress Partially Met
--- NOTE | 2024-05-27 10:47 | PTOPDC ---
Assessment and note entered by Viridiana Atkinson DPT Evaluation Information Assessment Status Discharge Subjective Information Pt reports she has continued to feel better with therapy. Is able to do more exercise without feeling the need to void as much. Not voiding in the middle of the night most of the time, voiding 6-8 times a day. Can hold urge to void 10 minutes or more depending on the situation. No pain in the last week. Reported Pain Level Pain Score 0: Self Report Assessment PT Clinical Summary The patient has made excellent progress in therapy and reports no pain or functional limitation in the last week. She reports normalized urinary frequency and ability hold urge longer. Due to her progress, discharge is recommended at this time. She has been educated to continue HEP and to follow up with MD and/or PT as needed. Plan of Care PT Services Indicated No
== END 2024-05-27 11:52 | disposition home or self-care (01) ==
LOC: ANHGOSHPT 10:15
PROVIDERS: PCP Family Medicine; Visit Provider Advanced Practice Midwife
DX: R10.2 Pelvic and perineal pain (principal)
CPT/HCPCS: 97110; 97112; 97140; 97161; 97530

== ENCOUNTER 2024-11-11 15:30 | Outpatient (CLI) | payer OTHER, MEDICAID, SELFPAY ==
--- NOTE | ~2024-11-11 | MM_ITS ---
EXAMINATION: MM screening keenan BI w socorro HISTORY: Screening TECHNIQUE: Craniocaudal and mediolateral oblique 3-D tomosynthesis images were obtained and synthetic 2-D images were generated. CAD analysis was submitted and interpreted. COMPARISON: Comparison to multiple prior studies sequentially, with oldest reviewed study dated 11/2014. BREAST PARENCHYMAL COMPOSITION: Dense: The breasts are heterogeneously dense, which may obscure small masses FINDINGS: There is no evidence of suspicious mass, calcification, or architectural distortion to sugg est malignancy in either breast. There has been no suspicious interval change. IMPRESSION: 1. No mammographic evidence of malignancy. 2. Recommend routine screening mammography in one year. BI-RADS Category 1: Negative Reviewed, dictated and finalized at location [facility]. [facility]
--- OUTSIDE RECORDS SUMMARY | 2024-11-11 15:35 | XMS_ITS | Referral Summary ---
Author Organization [facility] Se[facility] Address [address] [place] [address] Care Team Providers Care Onsite Health Coach Name Role Phone Berta Davenport MD Primary Care Provider [phone] Source Comments [facility],non-owned Affiliates and Associated Physician Practices is amultiple site organization consisting of ambulatory clinics and hospital sitesin [place], [place], [place] and [place]. This disclosure is being madepursuant to the Care Everywhere program and may not contain all information available regarding this patient. Last updated 18.[facility] Allergies Active Allergy Reactions Criticality Noted Date Comments Buspirone Unknown,Palpitations Low 11/21/2023 Codeine Anaphylaxis High 07/29/2011 Codeine Anaphylaxis,Urticari a,Unk nown,Palpitations High 07/29/2011 Ibuprofen Other Low 07/29/2011 Breathing problems Breathing problems Latex Skin Reactions,Other Medium 07/29/2011 Levothyroxine Other,Unknown Low 07/13/2015 Per Ms. Sher, allergic to Levothyroxine. Per Ms. Sher, allergic to Levothyroxine. ALLERGIC TO FILLERS AND /OR DYE IN TABLETS , CAN ONLY TAKE TIROSINT Nitrofurantoin Wheezing,Rash Medium 05/15/2012 Nsaids Unknown 02/24/2024 Prednazoline Rash Medium 07/31/2011 Prednisone Skin Reactions,Urticaria Medium 07/04/2015 Breathing problems Breathing problems Tramadol Unknown,Palpitations Medium 08/08/2021 States can't function Medications * Be aware that medications may not be up to date on this document. Alwaysverify current medications with the patient. Medication Sig Dispensed Refills Start Date End Date Status QUEtiapine Fumarate 150 MG TABS Take 1 tablet by mouth 01/27/2024 Active ALPRAZolam (Xanax) 1 MG tablet Take 1 (one) tablet by mouth at bedtime 02/19/2024 Active Active Problems Problem Noted Date Diagnosed Date Urticaria 02/24/2024 Overview (02/24/2024): chronic LENY (obstructive sleep apnea) 11/21/2023 Overview (02/24/2024): Last Assessment & Plan: The patient is awaiting arrival of her auto titrating CPAP unit with a range of 5-15 cm water pressure. Persistent insomnia 10/03/2023 Chronic insomnia 09/26/2023 High serum ferritin 09/03/2023 Mixed anxiety and depressive disorder 07/29/2023 Osteopenia after menopause 10/10/2022 Fibromyalgia 08/21/2022 Spina bifida occulta 06/27/2022 Postoperative hypothyroidism 02/13/2022 Overview (02/24/2024): Last Assessment & Plan: I explained to the patient with a normal TSH there would be no indication for L T4 therapy However the patient insists that she feels much better when she is taking the Tirosint Another approach would be combination therapy, e.g. suppressive therapy with Tapazole and replacement therapy with L T4 The patient agrees Restart levothyroxine in the form of Tirosint 50 mcg daily Recheck TFTs in 2 months If TSH get suppressed, will start therapy with Tapazole to normalize TSH and continue levothyroxine replacement. Lactose intolerance 07/28/2020 Anxiety 07/28/2020 Gastroesophageal reflux disease 07/28/2020 Migraine 07/28/2020 Primary fibromyalgia syndrome 07/28/2020 Vitamin D deficiency 07/28/2020 Hyperthyroidism 07/28/2020 Hearing loss 01/16/2019 Hyperparathyroidism 07/16/2017 Nontoxic single thyroid nodule 11/15/2016 Thyroid nodule 11/15/2016 Malignant neoplasm of thyroid gland 01/11/2016 Hypothyroidism 01/11/2016 Papillary thyroid carcinoma 01/11/2016 Resolved Problems Problem Noted Date Diagnosed Date Resolved Date BMI 29.0-29.9,adult 07/10/2018 08/06/20 Body mass index (BMI) of 30.0-30.9 in adult 10/11/2017 07/10/2018 Social History Tobacco Use Types Packs/Day Years Used Date Smoking Tobacco: Never Smokeless Tobacco: Never Alcohol Use Standard Drinks/Week Comments No 0 (1 standard drink = 0.6 oz pur e alcohol) Sex and Gender Information Value Date Recorded Sex Assigned at Female 02/09/2022 10:50 AM CDT Gender Identity Female 02/09/2022 10:50 AM CDT Sexual Orientation Straight 02/09/2022 10 :50 AM CDT Last Filed Vital Signs Vital Sign Reading Time Taken Comments Blood Pressure 115/81 02/24/2024 10:25 AM CDT Pulse 83 02/24/2024 10:25 AM CDT Temperature 37.2 C (99 F) 05/26/2021 12:15 PM CDT Respiratory Rate 14 01/16/2019 11:16 AM CDT Oxygen Saturation 98% 02/24/2024 10:25 AM CDT Inhaled Oxygen Concentration - - Weight 68.8 kg (151 lb 9.6 oz) 02/24/2024 10:25 AM CDT Height 167.6 cm (5' 6 ) 05/26/2021 12:15 PM CDT Body Mass Index 24.47 05/26/2021 12:15 PM CDT Plan of Treatment Upcoming Encounters Date Type Department Care Team (Late st Contact Info) Description 03/01/2025 1:00 PM CDT Office Visit [facility] - Endocrinology [address] [place] [address], [place] [address] Rafal Patricio MD [address] [place] [address] [place] [address] Care Teams Onsite Health Coach Relationship Specialty Start Date End Date Berta Davenport MD [facility] [place] [address] PCP - General 12/27/16
--- OUTSIDE RECORDS SUMMARY | 2024-11-11 15:35 | XMS_ITS | Patient Health Summary ---
Author Organization [facility] Address [address] [place] [address] Care Team Providers Care Wardrobe Technician Name Role Phone Berta Davenport MD Primary Care Provider [phone] Note from [facility],non-owned Affiliates and Associated Physician Practices is amultiple site organization consisting of ambulatory clinics and hospital sitesin [place], [place], [place] and [place]. This disclosure is being madepursuant to the Care Everywhere program and may not contain all information available regarding this patient. Last updated 18.[facility] Allergies * Buspirone(Unknown,Palpitations) -Low Criticality * Codeine(Anaphylaxis) -High Criticality * Codeine(Anaphylaxis,Urticaria,Unknown,Palpitations) -High Criticality * Ibuprofen(Other) -Low Criticality * Latex(Skin Reactions,Other) -Medium Criticality * Levothyroxine(Other,Unknown) -Low Criticality * Nitrofurantoin(Wheezing,Rash) -Medium Criticality * Nsaids(Unknown) * Prednazoline(Rash) -Medium Criticality * Prednisone(Skin Reactions,Urticaria) -Medium Criticality * Tramadol(Unknown,Palpitations) -Medium Criticality Medications * Be aware that medications may not be up to date on this document. Alwaysverify current medications with the patient. * QUEtiapine Fumarate 150 MG TABS(Started 01/27/2024) Take 1 tablet by mouth * ALPRAZolam (Xanax) 1 MG tablet(Started 02/19/2024) Take 1 (one) tablet by mouth at bedtime Active Problems Problem Noted Date Diagnosed Date Urticaria 02/24/2024 LENY (obstructive sleep apnea) 11/21/2023 Persistent insomnia 10/03/2023 Chronic insomnia 09/26/2023 High serum ferritin 09/03/2023 Mixed anxiety and depressive disorder 07/29/2023 Osteopenia after menopause 10/10/2022 Fibromyalgia 08/21/2022 Spina bifida occulta 06/27/2022 Postoperative hypothyroidism 02/13/2022 Lactose intolerance 07/28/2020 Anxiety 07/28/2020 Gastroesophageal reflux [...] Mass Index 24.47 05/26/2021 12:15 PM CDT Procedures * TN US SOFT TISS HEAD&NCK R-T IMG(Performed 02/24/2024) Performed for Papillary thyroid carcinoma (HCC), Nontoxic single thyroid nodule, Thyroid nodule * THYROGLOBULIN BY ADRIANA RFLXED(Performed 02/24/2024) Performed for Papillary thyroid carcinoma (HCC), Malignant neoplasm of thyroid gland (HCC), Postoperative hypothyroidism, Hypothyroidism, unspecified type, Vitamin D deficiency * PTH INTACT W/O CALCIUM(Performed 02/24/2024) Performed for Papillary thyroid carcinoma (HCC), Malignant neoplasm of thyroid gland (HCC), Postoperative hypothyroidism, Hypothyroidism, unspecified type, Vitamin D deficiency * TSH REFLEX FREE T4(Performed 02/24/2024) Performed for Papillary thyroid carcinoma (HCC), Malignant neoplasm of thyroid gland (HCC), Postoperative hypothyroidism, Hypothyroidism, unspecified type, Vitamin D deficiency * THYROGLOBULIN REFLEX PROFILE(Performed 02/24/2024) Performed for Papillary thyroid carcinoma (HCC), Malignant neoplasm of thyroid gland (HCC), Postoperative hypothyroidism, Hypothyroidism, unspecified type, Vitamin D deficiency * PROLACTIN(Performed 02/24/2024) Performed for Papillary thyroid carcinoma (HCC), Malignant neoplasm of thyroid gland (HCC), Postoperative hypothyroidism, Hypothyroidism, unspecified type, Vitamin D deficiency * ACTH(Performed 02/24/2024) Performed for Papillary thyroid carcinoma (HCC), Malignant neoplasm of thyroid gland (HCC), Postoperative hypothyroidism, Hypothyroidism, unspecified type, Vitamin D deficiency * T4 FREE DIRECT DIALYSIS(Performed 02/24/2024) Performed for Papillary thyroid carcinoma (HCC), Malignant neoplasm of thyroid gland (HCC), Postoperative hypothyroidism, Hypothyroidism, unspecified type, Vitamin D deficiency * SOMATOMEDIN C (IGF-1)(Performed 02/24/2024) Performed for Papillary thyroid carcinoma (HCC), Malignant neoplasm of thyroid gland (HCC), Postoperative hypothyroidism, Hypothyroidism, unspecified type, Vitamin D deficiency * RENAL FUNCTION PANEL(Performed 02/24/2024) Performed for Papillary thyroid carcinoma (HCC), Malignant neoplasm of thyroid gland (HCC), Postoperative hypothyroidism, Hypothyroidism, unspecified type, Vitamin D deficiency * VITAMIN D 25-HYDROXY(Performed 02/24/2024) Performed for Papillary thyroid carcinoma (HCC), Malignant neoplasm of thyroid gland (HCC), Postoperative hypothyroidism, Hypothyroidism, unspecified type, Vitamin D deficiency * TSH(Performed 10/03/2022) Performed for Thyroid nodule, Papillary thyroid carcinoma (HCC), Malignant neoplasm of thyroid gland (HCC), Postoperative hypothyroidism, Vitamin D deficiency, Hypothyroidism, unspecified type, Nontoxic single thyroid nodule * RENAL FUNCTION PANEL(Performed 10/03/2022) Performed for Thyroid nodule, Papillary thyroid carcinoma (HCC), Malignant neoplasm of thyroid gland (HCC), Postoperative hypothyroidism, Vitamin D deficiency, Hypothyroidism, unspecified type, Nontoxic single thyroid nodule * TSH(Performed 01/30/2022) Performed for Thyroid nodule, Papillary thyroid carcinoma (HCC), Malignant neoplasm of thyroid gland (HCC), Postoperative hypothyroidism, Vitamin D deficiency, Hypothyroidism, unspecified type, Nontoxic single thyroid nodule * THYROGLOBULIN BY ADRIANA RFLXED(Performed 12/01/2021) Performed for Hyperparathyroidism (HCC), Papillary thyroid carcinoma (HCC), Malignant neoplasm of thyroid gland (HCC), Postoperative hypothyroidism * THYROGLOBULIN REFLEX PROFILE(Performed 12/01/2021) Performed for Hyperparathyroidism (HCC), Papillary thyroid carcinoma (HCC), Malignant neoplasm of thyroid gland (HCC), Postoperative hypothyroidism * THYROID STIMULATING IMMUNOGLOBULIN (TSI)(Performed 12/01/2021) Performed for Hyperparathyroidism (HCC), Papillary thyroid carcinoma (HCC), Malignant neoplasm of thyroid gland (HCC), Postoperative hypothyroidism * T3 TOTAL+FREE PANEL(Performed 12/01/2021) Performed for Hyperparathyroidism (HCC), Papillary thyroid carcinoma (HCC), Malignant neoplasm of thyroid gland (HCC), Postoperative hypothyroidism * T4 TOTAL + T4 FREE(Performed 12/01/2021) Performed for Hyperparathyroidism (HCC), Papillary thyroid carcinoma (HCC), Malignant neoplasm of thyroid gland (HCC), Postoperative hypothyroidism * TSH RECEPTOR ANTIBODY(Performed 12/01/2021) Performed for Hyperparathyroidism (HCC), Papillary thyroid carcinoma (HCC), Malignant neoplasm of thyroid gland (HCC), Postoperative hypothyroidism * TN US SOFT TISS HEAD&NCK R-T IMG(Performed 05/28/2021) Performed for Thyroid nodule, Papillary thyroid carcinoma (HCC), Malignant neoplasm of thyroid gland (HCC), Postoperative hypothyroidism, Vitamin D deficiency, Hypothyroidism, unspecified type, Nontoxic single thyroid nodule * THYROGLOBULIN BY ADRIANA RFLXED(Performed 05/22/2021) Performed for Hyperparathyroidism (HCC), Papillary thyroid carcinoma (HCC), Malignant neoplasm of thyroid gland (HCC), Postoperative hypothyroidism * THYROGLOBULIN REFLEX PROFILE(Performed 05/22/2021) Performed for Hyperparathyroidism (HCC), Papillary thyroid carcinoma (HCC), Malignant neoplasm of thyroid gland (HCC), Postoperative hypothyroidism * THYROID STIMULATING IMMUNOGLOBULIN (TSI)(Performed 05/22/2021) Performed for Hyperparathyroidism (HCC), Papillary thyroid carcinoma (HCC), Malignant neoplasm of thyroid gland (HCC), Postoperative hypothyroidism * T3 TOTAL+FREE PANEL(Performed 05/22/2021) Performed for Hyperparathyroidism (HCC), Papillary thyroid carcinoma (HCC), Malignant neoplasm of thyroid gland (HCC), Postoperative hypothyroidism * T4 TOTAL + T4 FREE(Performed 05/22/2021) Performed for Hyperparathyroidism (HCC), Papillary thyroid carcinoma (HCC), Malignant neoplasm of thyroid gland (HCC), Postoperative hypothyroidism * TSH RECEPTOR ANTIBODY(Performed 05/22/2021) Performed for Hyperparathyroidism (HCC), Papillary thyroid carcinoma (HCC), Malignant neoplasm of thyroid gland (HCC), Postoperative hypothyroidism * TSH(Performed 05/22/2021) Performed for Hyperparathyroidism (HCC), Papillary thyroid carcinoma (HCC), Malignant neoplasm of thyroid gland (HCC), Postoperative hypothyroidism * THYROGLOBULIN BY ADRIANA RFLXED(Performed 02/10/2021) Performed for Hyperparathyroidism (HCC), Papillary thyroid carcinoma (HCC), Malignant neoplasm of thyroid gland (HCC), Postoperative hypothyroidism, Thyroid nodule, Nontoxic single thyroid nodule, Hypothyroidism, unspecified type, Vitamin D deficiency * CELIAC DISEASE REFLEXIVE CASCADE(Performed 02/10/2021) Performed for Hyperparathyroidism (HCC), Papillary thyroid carcinoma (HCC), Malignant neoplasm of thyroid gland (HCC), Postoperative hypothyroidism, Thyroid nodule, Nontoxic single thyroid nodule, Hypothyroidism, unspecified type, Vitamin D deficiency * MAGNESIUM BLOOD(Performed 02/10/2021) Performed for Hyperparathyroidism (HCC), Papillary thyroid carcinoma (HCC), Malignant neoplasm of thyroid gland (HCC), Postoperative hypothyroidism, Thyroid nodule, Nontoxic single thyroid nodule, Hypothyroidism, unspecified type, Vitamin D deficiency * RENAL FUNCTION PANEL(Performed 02/10/2021) Performed for Hyperparathyroidism (HCC), Papillary thyroid carcinoma (HCC), Malignant neoplasm of thyroid gland (HCC), Postoperative hypothyroidism, Thyroid nodule, Nontoxic single thyroid nodule, Hypothyroidism, unspecified type, Vitamin D deficiency * THYROGLOBULIN REFLEX PROFILE(Performed 02/10/2021) Performed for Hyperparathyroidism (HCC), Papillary thyroid carcinoma (HCC), Malignant neoplasm of thyroid gland (HCC), Postoperative hypothyroidism, Thyroid nodule, Nontoxic single thyroid nodule, Hypothyroidism, unspecified type, Vitamin D deficiency * T4 FREE DIRECT DIALYSIS(Performed 02/10/2021) Performed for Hyperparathyroidism (HCC), Papillary thyroid carcinoma (HCC), Malignant neoplasm of thyroid gland (HCC), Postoperative hypothyroidism, Thyroid nodule, Nontoxic single thyroid nodule, Hypothyroidism, unspecified type, Vitamin D deficiency * TSH(Performed 02/10/2021) Performed for Hyperparathyroidism (HCC), Papillary thyroid carcinoma (HCC), Malignant neoplasm of thyroid gland (HCC), Postoperative hypothyroidism, Thyroid nodule, Nontoxic single thyroid nodule, Hypothyroidism, unspecified type, Vitamin D deficiency * VITAMIN D 25-HYDROXY(Performed 01/10/2021) * TSH(Performed 01/10/2021) Performed for Thyroid nodule, Nontoxic single thyroid nodule * THYROGLOBULIN BY ADRIANA RFLXED(Performed 08/01/2020) Performed for Hyperparathyroidism (HCC), Papillary thyroid carcinoma (HCC), Malignant neoplasm of thyroid gland (HCC), Postoperative hypothyroidism * THYROGLOBULIN REFLEX PROFILE(Performed 08/01/2020) Performed for Hyperparathyroidism (HCC), Papillary thyroid carcinoma (HCC), Malignant neoplasm of thyroid gland (HCC), Postoperative hypothyroidism * THYROID STIMULATING IMMUNOGLOBULIN (TSI)(Performed 08/01/2020) Performed for Hyperparathyroidism (HCC), Papillary thyroid carcinoma (HCC), Malignant neoplasm of thyroid gland (HCC), Postoperative hypothyroidism * T3 TOTAL+FREE PANEL(Performed 08/01/2020) Performed for Hyperparathyroidism (HCC), Papillary thyroid carcinoma (HCC), Malignant neoplasm of thyroid gland (HCC), Postoperative hypothyroidism * T4 TOTAL + T4 FREE(Performed 08/01/2020) Performed for Hyperparathyroidism (HCC), Papillary thyroid carcinoma (HCC), Malignant neoplasm of thyroid gland (HCC), Postoperative hypothyroidism * TSH RECEPTOR ANTIBODY(Performed 08/01/2020) Performed for Hyperparathyroidism (HCC), Papillary thyroid carcinoma (HCC), Malignant neoplasm of thyroid gland (HCC), Postoperative hypothyroidism * TSH(Performed 08/01/2020) Performed for Hyperparathyroidism (HCC), Papillary thyroid carcinoma (HCC), Malignant neoplasm of thyroid gland (HCC), Postoperative hypothyroidism * VITAMIN D 25-HYDROXY(Performed 07/18/2020) Performed for Vitamin D deficiency * BASIC METABOLIC PANEL (CALCIUM TOTAL)(Performed 07/18/2020) Performed for Hyperparathyroidism (HCC), Vitamin D deficiency * T4 FREE(Performed 07/18/2020) Performed for Postoperative hypothyroidism * TSH(Performed 07/18/2020) Performed for Postoperative hypothyroidism * THYROID PEROXIDASE ANTIBODY(Performed 04/15/2020) Performed for Postoperative hypothyroidism * THYROID STIMULATING IMMUNOGLOBULIN (TSI)(Performed 04/15/2020) Performed for Postoperative hypothyroidism * T3 FREE(Performed 04/15/2020) Performed for Postoperative hypothyroidism * T4 FREE(Performed 04/15/2020) Performed for Postoperative hypothyroidism * TSH(Performed 04/15/2020) Performed for Postoperative hypothyroidism * T4 FREE(Performed 02/11/2020) * TSH(Performed 02/11/2020) * HEMOGLOBIN A1C(Performed 02/11/2020) * COMPREHENSIVE METABOLIC PANEL(Performed 02/11/2020) * TSH+FREE T4 PANEL(Performed 08/14/2019) * COMPREHENSIVE METABOLIC PANEL(Performed 08/14/2019) Performed for Postoperative hypothyroidism * VITAMIN D 25-HYDROXY(Performed 08/14/2019) Performed for Vitamin D insufficiency * IMAGING/RADIOLOGY/XRAY RESULTS ORDER(Performed 04/14/2019) * T4 FREE(Performed 01/08/2019) * TSH(Performed 01/08/2019) * LAB RESULTS ORDER(Performed 10/10/2018) * TSH(Performed 10/03/2018) * T4 FREE(Performed 10/03/2018) * VITAMIN D 25-HYDROXY(Performed 10/03/2018) Performed for Vitamin D deficiency * BASIC METABOLIC PANEL (CALCIUM TOTAL)(Performed 10/03/2018) Performed for Hyperparathyroidism (HCC), Vitamin D deficiency * TN US SOFT TISS HEAD&NCK R-T IMG(Performed 09/24/2018) Performed for Thyroid nodule, Papillary thyroid carcinoma (HCC), Postoperative hypothyroidism * TSH(Performed 02/21/2018) Performed for Other specified hypothyroidism * T4 FREE(Performed 02/21/2018) Performed for Other specified hypothyroidism * VITAMIN D 25-HYDROXY(Performed 02/21/2018) Performed for Fatigue due to excessive exertion, subsequent encounter * CORTISOL BLOOD AM(Performed 01/22/2018) Performed for Fatigue due to exposure, initial encounter * T4 FREE(Performed 01/22/2018) Performed for Postoperative hypothyroidism * ACTH(Performed 01/22/2018) Performed for Fatigue due to exposure, initial encounter * TSH(Performed 01/22/2018) Performed for Postoperative hypothyroidism * TSH+FREE T4 PANEL(Performed 09/26/2017) * T4 FREE(Performed 07/16/2017) * TSH(Performed 07/16/2017) * BASIC METABOLIC PANEL (CALCIUM TOTAL)(Performed 07/16/2017) * CYTOLOGY NON-COCOA BEAN ROASTER HELPER PANEL (STL)(Performed 12/26/2016) * T4 FREE(Performed 10/18/2015) * PTH INTACT W/O CALCIUM(Performed 10/18/2015) Results * TN US SOFT TISS HEAD&NCK R-T IMG (02/24/2024 2:06 PM CDT) Narrative Rafal Patricio MD - 02/24/2024 2:06 PM CDT Rafal Patricio MD 02/24/2024 2:30 PM Ultrasound Of Thyroid Ultrasound of the Thyroid PHYSICIAN Rafal Patricio MD FELLOW NONE Test Date: 02/24/2024 Test Indication: Patient Active Problem List: Hyperparathyroidism (HCC) Nontoxic single thyroid nodule Malignant neoplasm of thyroid gland (HCC) Hypothyroidism Thyroid nodule Papillary thyroid carcinoma (HCC) Hearing loss Lactose intolerance Anxiety Gastroesophageal reflux disease Migraine Primary fibromyalgia syndrome Vitamin D deficiency Hyperthyroidism High serum ferritin Mixed anxiety and depressive disorder LENY (obstructive sleep apnea) Osteopenia after menopause Postoperative hypothyroidism Spina bifida occulta Urticaria Chronic insomnia Fibromyalgia Persistent insomnia Referring Physician: Dr. Berta Davenport MD Procedure Preformed: Ultrasound Only COMPARED TO : 05/28/2021 Nodule Size: LEFT LOBE TRANSVERSE IMAGE #1 MID LOBE, LATERAL, C YST, 0.26 X 0.18 CM, SECOND IMAGE 0.22 X 0.17 CM #2 MID LOBE, ANTERIOR, MEDIAL, CYST, 0.22 X 0.13 CM, SECOND IMAGE 0.17 X 0.15 CM #3 MID LOBE, ANTERIOR, CYSTIC / SOLID, SPONGIFORM, 0.41 X 0.23 CM #4 MID LOBE, CYSTIC/ SOLID, SPONGIFORM, 0.42 X 0.38 CM #5 INFERIOR POLE, CYST, 0.29 X 0.16 CM #6 SOLID, CYSTIC, SMOOTH BORDER, HYPOECHOIC, HETEROGENEOUS, 0.69 X 0.40 CM #7 INFERIOR POLE, SOLID, CYST SPACES, SMOOTH BORDER, HYPOECHOIC, 1.02 X 0.67 CM #8 ???NODULE VS HETEROGENEOUS ECHO TEXTURE OF LEFT LOBE CHAIRPERSON, SOLID/CYSTIC, SMOOTH BORDER, HALO, ISO TO HYPERECHOIC, SPONGIFORM ON LONGITUDINAL IMAGE , 1.38 X 0.88 CM LONGITUDINAL IMAGE #7 1.15 X 0.54 CM #8 1.33 X 0.82 CM Echogenicity: HETEROGENEOUS ECHO TEXTURE TO LEFT LOBE Vascularity: NOT INCREASED OR ABNORMAL Number of Nodules Present: SEE ABOVE Calcifications: NONE Borders: SHARP RIGHT LOBE SURGICALLY ABSENT ISTHMUS NEAR CENTER : 0.17 CM LEFT 0.34 CM LEFT LOBE TRANSVERSE IMAGE : 2.34 X 1.34 CM, SECOND IMAGE 2.90 X 1.16 CM LONGITUDINAL IMAGE : 5.54 CM ASSESSMENT NO SIGNIFICANT CHANGE IN ULTRASOUND APPEARANCE EUTHYROID ON MEDICATION Recommendations: THYROID ULTRASOUND TODAY REVIEWED IMAGES WITH PATIENT REVIEWED AVAILABLE LAB RESULTS WITH PATIENT RETURN IN ONE YEAR ULTRASOUND IN ONE YEAR AT LEAST ANNUAL TSH DETERMINATION Rafal Patricio MD Division of Endocrinology Rafal Patricio MD PROCEDURE/MINOR CALEB GICAL ORDERABLES * THYROGLOBULIN REFLEX PROFILE (02/24/2024 12:31 PM CDT) Only the most recent of5 resultswithin the time period is included. Thyroglobulin Antibody <1.0 0.0 - 0.9 IU/mL 02/25/2024 7:08 PM CDT [facility] ([facility]) Comment: Thyroglobulin Antibody measured by Fredo Ed Methodology It should be noted that the presence of thyroglobulin antibodies may not be pathogenic nor diagnostic, especially at very low levels. The assay telecommunicator supervisor has found that four percent of individuals without evidence of thyroid disease or autoimmunity will have positive TgAb levels up to 4 IU/mL. Blood BLOOD SPECIMEN / Unknown Lab Venipuncture / Unknown 02/24/2024 12:31 PM CDT 02/24/2024 12:45 PM CDT Narrative [facility] ([facility]) - 02/25/2024 7:08 PM CDT Performed at: 01 - [facility] [address] [place], [place] [id number] Materials Planning Manager: Wes Bautista PhD, Phone: [phone] Rafal Patricio MD LAB - CHEMISTRY ORD ERABLES [facility] ([facility]) [address] [place] [address], [facility] * THYROGLOBULIN BY ADRIANA RFLXED (02/24/2024 12:31 PM CDT) Only the most recent of5 resultswithin the time period is included. Thyroglobulin by ADRIANA 22.8 1.5 - 38.5 ng/mL 02/25/2024 7:08 PM CDT [facility] ([facility]) Comment: According to the National Academy of Clinical Biochemistry, the reference interval for Thyroglobulin (TG) should be related to euthyroid patients and not for patients who underwent thyroidectomy. TG reference intervals for these patients depend on the residual mass of the thyroid tissue left after surgery. Establishing a post-operative baseline is recommended. The assay limit of quantitation is 0.1 ng/mL Thyroglobulin measured by [facility] [place] Immunometric Assay Blood BLOOD SPECIMEN / Unknown Lab Venipuncture / Unknown 02/24/2024 12:31 PM CDT 02/24/2024 12:45 PM CDT Narrative [facility] ([facility]) - 02/25/2024 7:08 PM CDT Performed at: [address] [place], [place] [id number] [place], [place] [id number] Materials Planning Manager: Wes Bautista PhD, Phone: [phone] Rafal Patricio MD LAB - CHEMISTRY ORD ERABLES Performing Organization Address City/[facility]/ZIP Co de Phone Number [facility] ([facility]) [address] [place] [address], [facility] * PTH INTACT ([facility]) (02/24/2024 12:31 PM CDT) Only the most recent of2 resultswithin the time period is included. PTH Intact 56.2 8.0 - 77.0 pg/mL 02/24/2024 1:29 PM CDT [facility] Blood BLOOD SPECIMEN / Unknown Lab Venipuncture / Unknown 02/24/2024 12:31 PM CDT 02/24/2024 12:53 PM CDT Rafal Patricio MD LAB - CHEMISTRY ORD ERABLES [address] [address], [facility] [phone] * TSH REFLEX FREE T4 (02/24/2024 12:31 PM CDT) TSH 1.587 0.350 - 4.940 uIU/mL 02/24/2024 1:45 PM CDT [facility] Blood BLOOD SPECIMEN / Unknown Lab Venipuncture / Unknown 02/24/2024 12:31 PM CDT 02/24/2024 12:53 PM CDT Rafal Patricio MD LAB - CHEMISTRY ORD ERABLES [address] [address], [facility] [phone] * T4 FREE DIRECT DIALYSIS (02/24/2024 12:31 PM CDT) Only the most recent of2 resultswithin the time period is included. Pathologist [facility] T4 Free Direct Dialysis 1.1 1.1 - 2.4 ng/dL 02/28/2024 1:30 PM CDT [facility] ([facility]) Comment: FREE T4 BY [facility] DIALYSIS-TMS: REFERENCE INTERVALS 1ST TRIMESTER ...... 0.7 - 2.0 ng/dL 2ND TRIMESTER ...... 0.7 - 2.1 ng/dL 3RD TRIMESTER ...... 0.5 - 1.6 ng/dL INTERPRETIVE INFORMATION: FT4 ED-TMS Some medications may induce transient changes in FT4 concentrations. This test is not recommended for patients currently on heparin treatment as FT4 concentrations may be falsely elevated. Performed By: [facility] [address] [place] [address] Parts Data Writer: Aly Wagoner MD, PhD CLIA Number: [id number] Blood BLOOD SPECIMEN / Unknown Lab Venipuncture / Unknown 02/24/2024 12:31 PM CDT 02/24/2024 12:45 PM CDT Rafal Patricio MD LAB - CHEMISTRY ORD ERABLES [facility]) [address] * ACTH (02/24/2024 12:31 PM CDT) Only the most recent of2 resultswithin the time period is included. ACTH 9.8 7.2 - 63.3 pg/mL 02/26/2024 1:23 AM CDT [facility] ([facility]) Comment: INTERPRETIVE INFORMATION: Adrenocorticotropic Hormone Reference interval based on samples collected between 7 a.m. and 10 a.m. No reference intervals established for p.m. collections. Pediatric reference values are the same as adults (Acta Paediatr Scand 1981;70:341-345). This assay measures intact ACTH 1-39; some types of synthetic ACTH and ACTH fragments are not detected by this assay. Performed By: [facility] [address] [place] [address] Parts Data Writer: Aly Wagoner MD, PhD CLIA Number: [id number] Blood BLOOD SPECIMEN / Unknown Lab Venipuncture / Unknown 02/24/2024 12:31 PM CDT 02/24/2024 12:43 PM CDT Rafal Patricio MD LAB - CHEMISTRY ORD ERABLES [facility]) [address] [place] [address] * PROLACTIN (02/24/2024 12:31 PM CDT) Prolactin 3.9 2.8 - 29.2 ng/mL 02/26/2024 3:32 AM CDT [facility] ([facility]) Comment: Interpretive Information: 9.7- >200.0 ng/mL Postmenopausal 1.8-20.3 ng/mL Testing prolactin in patients with suspected prolactinoma during is not recommended. REFERENCE INTERVAL: Prolactin Access complete set of age- and/or gender-specific reference intervals for this test in the [facility] Test Directory ([employer]). Performed By: [facility] [address] [place] [address] Parts Data Writer: Aly Wagoner MD, PhD CLIA Number: [id number] Blood BLOOD SPECIMEN / Unknown Lab Venipuncture / Unknown 02/24/2024 12:31 PM CDT 02/24/2024 12:45 PM CDT Rafal Patricio MD LAB - CHEMISTRY ORD ERABLES [facility] ([facility]) [address] * SOMATOMEDIN C (IGF-1) (02/24/2024 12:31 PM CDT) [facility] Insulin-Like Growth Factor-1 177 70 - 225 ng/mL 02/26/2024 7:11 AM CDT [facility] ([facility]) Blood BLOOD SPECIMEN / Unknown Lab Venipuncture / Unknown 02/24/2024 12:31 PM CDT 02/24/2024 12:45 PM CDT Narrative [facility] ([facility]) - 02/26/2024 7:11 AM CDT Performed at: [address] [place] [id number] Materials Planning Manager: Sushila Guevara MD, Phone: [phone] Rafal Patricio MD LAB - CHEMISTRY ORD ERABLES [facility] ([facility]) [address] [place] [address] * VITAMIN D 25-HYDROXY (02/24/2024 12:31 PM CDT) Only the most recent of6 resultswithin the time period is included. Pathologist [facility] Vitamin D, 25 Hydroxy 68.8 30.0 - 80.0 ng/mL 02/24/2024 1:45 PM CDT [facility] Comment: The recommendations for 25-Hydroxy Vitamin D clinical decision points are as follows: Deficient: <20.0 ng/mL Insufficient: 20.0 - 29.9 ng/mL Sufficient: 30.0 - 100.0 ng/mL Potential Toxicity: >100 ng/mL Reference: The Endocrine Society Clinical Practice Guidelines. 2011 If the 25-Hydroxy Vitamin D results are inconsitent with clinical evidence, it is recommended that follow-up testing using a method such as LC/MS/MS be performed to confirm the result. Blood BLOOD SPECIMEN / Unknown Lab Venipuncture / Unknown 02/24/2024 12:31 PM CDT 02/24/2024 12:53 PM CDT Rafal Patricio MD LAB - CHEMISTRY ORD ERABLES [facility] [address] [place] [address], [facility] [phone] * (ABNORMAL) RENAL FUNCTION PANEL (02/24/2024 12:31 PM CDT) Only the most recent of3 resultswithin the time period is included. BUN 18 7 - 26 mg/dL 02/24/2024 1:38 PM [facility] Creatinine 0.71 0.56 - 0.96 mg/dL 02/24/2024 1:38 PM [facility] Sodium 143 136 - 145 mmol/L 02/24/2024 1:38 PM [facility] Potassium 4.5 3.5 - 4.5 mmol/L 02/24/2024 1:38 PM [facility] Chloride 107 98 - 107 mmol/L 02/24/2024 1:38 PM [facility] CO2 26 22 - 29 mmol/L 02/24/2024 1:38 PM [facility] Glucose 78 70 - 115 mg/dL 02/24/2024 1:38 PM [facility] Albumin 3.8 3.4 - 5.0 g/dL 02/24/2024 1:38 PM [facility] Calcium 9.6 8.4 - 10.2 mg/dL 02/24/2024 1:38 PM [facility] Phosphorus 3.1 2.9 - 5.1 mg/dL 02/24/2024 1:38 PM [facility] Anion Gap 10 6 - 16 02/24/2024 1:38 PM [facility] BUN/Creatinine Ratio 25(H) 7 - 23 02/24/2024 1:38 PM [facility] Osmolality Calculated 297(H) 275 - 295 mOsm/kg 02/24/2024 1:38 PM CDT [facility] eGFR by CKD-EPI >90 >=90 mL/min/1.7 3 m2 02/24/2024 1:38 PM CDT [facility] Blood BLOOD SPECIMEN / Unknown Lab Venipuncture / Unknown 02/24/2024 12:31 PM CDT 02/24/2024 12:53 PM CDT Rafal Patricio MD LAB - CHEMISTRY ORD ERABLES [facility] [address] [place] [address], [facility] [phone] * TSH (10/03/2022 11:03 AM CARE PROVIDER) Only the most recent of14 resultswithin the time period is included. TSH 2.550 0.450 - 4.500 uIU/mL [facility] INSURANCE BILL Comment:FASTING Blood BLOOD SPECIMEN / Unknown 10/03/2022 11:03 AM CARE PROVIDER 10/03/2022 Narrative Resulting Agency Comment Lab Testing performed at: [facility] [address] [place] [address] [phone] Rafal Patricio MD LAB - CHEMISTRY ORD ERABLES [facility] INSURANCE BILL [address] [place] [address] * T4 TOTAL + T4 FREE (12/01/2021 7:34 AM CARE PROVIDER) Only the most recent of3 resultswithin the time period is included. T4 Free 1.09 0.82 - 1.77 ng/dL [facility] INSURANCE BILL T4 Total 7.5 4.5 - 12.0 ug/dL [facility] INSURANCE BILL Comment:FASTING Blood BLOOD SPECIMEN / Unknown 12/01/2021 7:34 AM CARE PROVIDER 12/01/2021 Narrative Resulting Agency Comment Lab Testing performed at: [facility] [address] [facility] [phone] Rafal Patricio MD LAB - CHEMISTRY ORD ERABLES Performing Organization Address City/[facility]/ZIP Co de Phone Number [facility] INSURANCE BILL [address] [place] [address] * T3 TOTAL+FREE PANEL (12/01/2021 7:34 AM CARE PROVIDER) Only the most recent of3 resultswithin the time period is included. T3 Total 128 71 - 180 ng/dL [facility] INSURANCE BILL T3 Free 3.4 2.0 - 4.4 pg/mL [facility] INSURANCE BILL Comment:FASTING Blood BLOOD SPECIMEN / Unknown 12/01/2021 7:34 AM CARE PROVIDER 12/01/2021 Narrative Resulting Agency Comment [facility] [address] [facility] [phone] Rafal Patricio MD LAB - CHEMISTRY ORD ERABLES Performing Organization Address [facility] Co de Phone Number [facility] INSURANCE BILL [address] [place] [address] * THYROID STIMULATING IMMUNOGLOBULIN (TSI) (12/01/2021 7:34 AM CARE PROVIDER) Only the most recent of4 resultswithin the time period is included. Thyroid Stimulating Immunoglobulin 0.46 0.00 - 0.55 IU/L [facility] INSURANCE BILL Comment:FASTING Blood BLOOD SPECIMEN / Unknown 12/01/2021 7:34 AM CARE PROVIDER 12/01/2021 Narrative Resulting Agency Comment Lab Testing performed at: [address] [phone] Rafal Patricio MD LAB - CHEMISTRY ORD ERABLES Performing Organization Address City/[facility]/ZIP Co de Phone Number [facility] INSURANCE BILL [address] [place] [address] * (ABNORMAL) TSH RECEPTOR ANTIBODY (12/01/2021 7:34 AM CARE PROVIDER) Only the most recent of3 resultswithin the time period is included. Thyrotropin Receptor Antibody 4.65(H) 0.00 - 1.75 IU/L [facility] INSURANCE BILL Comment:FASTING Blood BLOOD SPECIMEN / Unknown 12/01/2021 7:34 AM CARE PROVIDER 12/01/2021 Narrative Resulting Agency Comment Lab Testing performed at: [address] [phone] Rafal Patricio MD LAB - CHEMISTRY ORD ERABLES [facility] INSURANCE BILL [address] [place] [address] * [place] US SOFT TISS HEAD&NCK R-T IMG (05/28/2021 10:08 AM CDT) Narrative Rafal Patricio MD - 05/28/2021 10:08 AM CDT Rafal Patricio MD 05/28/2021 11:39 AM Ultrasound Of Thyroid Ultrasound of the Thyroid PHYSICIAN Rafal Patricio MD FELLOW: Wyatt PARKER Test Date: 05/26/2021 Test Indication: Patient Active Problem List: Hyperparathyroidism Nontoxic single thyroid nodule Malignant neoplasm of thyroid gland Hypothyroidism Thyroid nodule Papillary thyroid carcinoma Hearing loss Lactose intolerance Anxiety Gastroesophageal reflux disease Migraine Primary fibromyalgia syndrome Vitamin D deficiency Hyperthyroidism Referring Physician: Dr. Berta Davenport MD Procedure Preformed: Ultrasound Only COMPARED TO: 09/24/2018 Nodule Size: RIGHT LOBE: SURGICALLY ABSENT LEFT LOBE TRANSVERSE IMAGE #1 POSTERIOR, MID LOBE, HALO, HETEROGENEOUS ECHO TEXTURE, SOLID/CYSTIC, ISOECHOIC, 1.19 X 0.75 CM LONGITUDINAL IMAGE #1 1.10 X 0.67 CM Echogenicity: HETEROGENEOUS ECHO TEXTURE Vascularity: NOT INCREASED OR ABNORMAL Number of Nodules Present: ONE Calcifications: NONE Borders: SHARP RIGHT LOBE: SURGICALLY ABSENT ISTHMUS: NOT SEEN LEFT LOBE TRANSVERSE IMAGE: 1.79 X 1.32 CM, SECOND IMAGE 2.11 X 1.35 CM LONGITUDINAL IMAGE: 5.84 CM ASSESSMENT NO CHANGE IN ULTRASOUND APPEARANCE OF THYROID EUTHYROID Recommendations: PLAN THYROID ULTRASOUND RETURN IN ONE YEAR ULTRASOUND IN ONE YEAR MONITOR TSH EVERY SIX MONTHS MONITOR CALCIUM ANNUALLY IF TSH LESS THAN 0.1 WILL OBTAIN FREE T4 AND FREE T3 IF CALCIUM ELEVATED THEN WILL OBTAIN PTH Rafal Patricio MD Division of Endocrinology Rafal Patricio MD PROCEDURE/MINOR CALEB GICAL ORDERABLES * CELIAC DISEASE EVALUATION PANEL (02/10/2021 1:02 PM CDT) IgA Quantitative 336 87 - 352 mg/dL [facility] INSURANCE BILL Antigliadin Antibody IgA 5 0 - 19 units [facility] INSURANCE BILL Comment: Negative 0 - 19 Weak Positive 20 - 30 Moderate to Strong Positive >30 TTG Antibody IgA <2 0 - 3 U/mL [facility] INSURANCE BILL Comment: Negative 0 - 3 Weak Positive 4 - 10 Positive >10 . Tissue Transglutaminase (tTG) has been identified as the endomysial antigen. Studies have demonstr- ated that endomysial IgA antibodies have over 99% specificity for gluten sensitive enteropathy. FASTING Blood BLOOD SPECIMEN / Unknown 02/10/2021 1:02 PM CDT 02/10/2021 Narrative Resulting Agency Comment Lab Testing performed at: [address] [phone] Rafal Patricio MD LAB - SEROLOGY ORDE BRAULIO Performing Organization Address City/[facility]/ZIP Co de Phone Number [facility] INSURANCE BILL [address] [place] [address] * MAGNESIUM BLOOD (02/10/2021 1:02 PM CDT) Pathologist [facility] Magnesium 2.3 1.6 - 2.3 mg/dL [facility] INSURANCE BILL Comment:FASTING Blood BLOOD SPECIMEN / Unknown 02/10/2021 1:02 PM CDT 02/10/2021 Narrative Resulting Agency Comment Lab Testing performed at: [address] [phone] Rafal Patricio MD LAB - CHEMISTRY ORD ERABLES Performing Organization Address City/[facility]/ZIP Co de Phone Number [facility] INSURANCE BILL [address] [place] [address] * (ABNORMAL) BASIC METABOLIC PANEL (CALCIUM TOTAL) (07/18/2020 12:56 PM CDT) Only the most recent of3 resultswithin the time period is included. Glucose 83 65 - 99 mg/dL [facility] INSURANCE BILL BUN 9 6 - 24 mg/dL [facility] INSURANCE BILL Creatinine 0.78 0.57 - 1.00 mg/dL [facility] INSURANCE BILL eGFR by MDRD 93 >59 mL/min/1.7 3 [facility] INSURANCE BILL eGFR by MDRD 108 >59 mL/min/1.7 3 [facility] INSURANCE BILL BUN/Creatinine Ratio 12 9 - 23 [facility] INSURANCE BILL Sodium 143 134 - 144 mmol/L [facility] INSURANCE BILL Potassium 4.4 3.5 - 5.2 mmol/L [facility] INSURANCE BILL Chloride 108(H) 96 - 106 mmol/L [facility] INSURANCE BILL CO2 22 20 - 29 mmol/L [facility] INSURANCE BILL Calcium 9.3 8.7 - 10.2 mg/dL [facility] INSURANCE BILL Comment:FASTING Blood BLOOD SPECIMEN / Unknown 07/18/2020 12:56 PM CDT 07/18/2020 Narrative Resulting Agency Comment [facility] Testing performed [facility]: [facility] [address] [place] [phone] Rafal Patricio MD LAB - CHEMISTRY [place] Performing Organization Address City/[facility] Co de Phone Number [facility] INSURANCE BILL [address] [place] [address] * T4 FREE (07/18/2020 12:55 PM CDT) Only the most recent of9 resultswithin the time period is included. Pathologist [facility] T4 Free 0.92 0.82 - 1.77 ng/dL [facility] INSURANCE BILL Comment:FASTING Blood BLOOD SPECIMEN / Unknown 07/18/2020 12:55 PM CDT 07/18/2020 Narrative Resulting Agency Comment Lab Testing performed at: [facility] [address] [facility] [phone] Don Monteiro MD LAB - CHEMISTRY [place] Performing Organization Address [facility] Co de Phone Number [facility] INSURANCE BILL [address] [place] [address] * THYROID PEROXIDASE ANTIBODY (04/15/2020 8:38 AM CDT) Thyroid Peroxidase TPO Antibody <9 0 - 34 IU/mL [facility] INSURANCE BILL Comment:FASTING Blood BLOOD SPECIMEN / Unknown 04/15/2020 8:38 AM CDT 04/15/2020 Narrative Resulting Agency Comment Lab Testing performed at: [facility] [address] [facility] [phone] Don Monteiro MD LAB - CHEMISTRY [place] [facility] INSURANCE BILL [address] [place] [address] * T3 FREE (04/15/2020 8:38 AM CDT) T3 Free 3.3 2.0 - 4.4 pg/mL [facility] INSURANCE BILL Comment:FASTING Blood BLOOD SPECIMEN / Unknown 04/15/2020 8:38 AM CDT 04/15/2020 Narrative Resulting Agency Comment Lab Testing performed at: [facility] [facility] [phone] Don Monteiro MD LAB - CHEMISTRY [place] Performing Organization Address [facility]/ZIP Co de Phone Number [facility] INSURANCE BILL [address] [place] [address] * HEMOGLOBIN A1C (02/11/2020 12:58 PM CDT) Pathologist [facility] Hemoglobin A1c 5.2 4.8 - 5.6 % [facility] INSURANCE BILL Comment: . Prediabetes: 5.7 - 6.4 Diabetes: >6.4 Glycemic control for adults with diabetes: <7.0 FASTING 02/11/2020 12:5 8 PM CDT 02/11/2020 Narrative Resulting Agency Comment Lab Testing performed at: [facility] [facility] [phone] Don Monteiro MD LAB - CHEMISTRY [place] [facility] INSURANCE BILL [address] [place] [address] * COMPREHENSIVE METABOLIC PANEL (02/11/2020 12:58 PM CDT) Only the most recent of2 resultswithin the time period is included. Glucose 87 65 - 99 mg/dL [facility] INSURANCE BILL BUN 8 6 - 24 mg/dL [facility] INSURANCE BILL Creatinine 0.67 0.57 - 1.00 mg/dL [facility] INSURANCE BILL eGFR by MDRD 108 >59 mL/min/1.7 3 [facility] INSURANCE BILL eGFR by MDRD 125 >59 mL/min/1.7 3 [facility] INSURANCE BILL BUN/Creatinine Ratio 12 9 - 23 [facility] INSURANCE BILL Sodium 143 134 - 144 mmol/L [facility] INSURANCE BILL Potassium 4.7 3.5 - 5.2 mmol/L [facility] INSURANCE BILL Chloride 105 96 - 106 mmol/L [facility] INSURANCE BILL CO2 24 20 - 29 mmol/L [facility] INSURANCE BILL Calcium 10.1 8.7 - 10.2 mg/dL [facility] INSURANCE BILL Protein Total 7.1 6.0 - 8.5 g/dL [facility] INSURANCE BILL Albumin 4.5 3.8 - 4.8 g/dL [facility] INSURANCE BILL Globulin Total 2.6 1.5 - 4.5 g/dL [facility] INSURANCE BILL Albumin/Globulin Ratio 1.7 1.2 - 2.2 [facility] INSURANCE BILL Bilirubin Total 1.2 0.0 - 1.2 mg/dL [facility] INSURANCE BILL Alkaline Phosphatase 108 39 - 117 IU/L [facility] INSURANCE BILL AST 16 0 - 40 IU/L [facility] INSURANCE BILL ALT 14 0 - 32 IU/L [facility] INSURANCE BILL Comment:FASTING 02/11/2020 12:5 8 PM CDT 02/11/2020 Narrative Resulting Agency Comment [facility]: [facility] [address] [facility] [phone] Don Monteiro MD LAB - CHEMISTRY [place] [facility] INSURANCE BILL [address] [place] [address] * (ABNORMAL) TSH+FREE T4 PANEL (08/14/2019 10:37 AM CARE PROVIDER) Only the most recent of2 resultswithin the time period is included. TSH 0.006(L) 0.450 - 4.500 uIU/mL [facility] INSURANCE BILL T4 Free 1.25 0.82 - 1.77 ng/dL [facility] INSURANCE BILL Comment:FASTING 08/14/2019 10:3 7 AM CARE PROVIDER 08/14/2019 Narrative Resulting Agency Comment Lab Testing performed at: [facility] [address] [facility] [phone] Don Monteiro MD LAB - CHEMISTRY [place] [facility] INSURANCE BILL [address] [place] [address] * IMAGING/RADIOLOGY/XRAY RESULTS ORDER (04/14/2019 11:39 AM CDT) Anatomical Region Laterality Modality Other Narrative 04/14/2019 11:39 AM CDT Ordered by an unspecified provider. Scanned Document IMAGING * LAB RESULTS ORDER (10/10/2018 7:02 AM CARE PROVIDER) Narrative 10/10/2018 7:02 AM CARE PROVIDER Ordered by an unspecified provider. Scanned Document LAB - THERAPEUTIC DR AGRAWAL MONITORING ORDERABLES * TN US SOFT TISS HEAD&NCK R-T IMG (09/24/2018 12:49 PM CARE PROVIDER) Narrative Rafal Patricio MD - 09/24/2018 12:49 PM CARE PROVIDER Rafal Patricio MD 09/24/2018 12:49 PM Ultrasound Of Thyroid Ultrasound of the Thyroid PHYSICIAN Rafal Patricio MD FELLOW NONE Test Date: 09/24/2018 Test Indication: Patient Active Problem List: Hyperparathyroidism Nontoxic single thyroid nodule Malignant neoplasm of thyroid gland Hypothyroidism BMI 29.0-29.9,adult Thyroid nodule Papillary thyroid carcinoma Referring Physician: Dr. Berta Davenport MD Procedure Preformed: Ultrasound Only Nodule Size: LEFT LOBE TRANSVERSE IMAGE: 1.01 X 0.70 CM, SOLID, HETEROGENEOUS, SMOOTH BORDER, HALO, SPONGIFORM IN ECHO TEXTURE , MID LOBE LONGITUDINAL IMAGE: 1.02 X 0.79 CM, POSTERIOR Echogenicity: HOMOGENEOUS ECHO TEXTURE Vascularity: NOT INCREASED OR ABNORMAL Number of Nodules Present: ONE Calcifications: NONE Borders: SHARP RIGHT LOBE TRANSVERSE IMAGE: SURGICALLY ABSENT LONGITUDINAL IMAGE: SURGICALLY ABSENT ISTHMUS: 0.09 CM LEFT LOBE TRANSVERSE IMAGE: 1.90 X 1.17 CM LONGITUDINAL IMAGE: 4.46 X 1.18 CM ASSESSMENT S/P HEMITHYROIDECTOMY S/P PARATHYROID GLAND REMOVAL ON THE RIGHT EUTHYROID PTC Recommendations: PLAN THYROID ULTRASOUND TODAY LAB SOON STANDING ORDER FOR LAB EVERY SIX MONTHS CONTINUE CURRENT THYROID MEDICATION DOSE NEW PRESCRIPTION TO PHARMACY NO BIOTIN FOR ONE WEEK BEFORE ANY THYROID TESTING Instructions for taking levothyroxine Brand name is preferred Take thyroid pill all by itself Take thyroid pill one hour before food or 2 to 3 hours after food Heat, humidity, and direct sunlight will cause a loss of potency Never store thyroid pill in the bathroom Return in one year Ultrasound in one year If TSH above the normal range then the dose of thyroid medication will be increased If TSH if below the normal range then the dose of thyroid medication will be decreased At least annual TSH determination At least annual calcium determination Vitamin D 2000 units daily Calcium intake 1000 mg daily, primarily from food sources Reviewed ultrasound images with patient Reviewed guidelines for FNA biopsy No surgery or FNA biopsy indicated based on ultrasound features of the nodule Rafal Patricio MD Division of Endocrinology Rafal Patricio MD PROCEDURE/MINOR CALEB GICAL ORDERABLES * CORTISOL BLOOD AM (01/22/2018 9:46 AM CDT) [facility] Cortisol AM 7.7 6.2 - 19.4 ug/dL [facility] INSURANCE BILL Comment:FASTING Blood BLOOD SPECIMEN / Unknown 01/22/2018 9:46 AM CDT 01/22/2018 Narrative Resulting Agency Comment [facility] [address] [facility] [phone] Aleta Nieves MD LAB - CHEMISTRY [place] [facility] INSURANCE BILL [address] [place] [address] * CYTOLOGY NON-COCOA BEAN ROASTER HELPER PANEL (STL) (12/26/2016 12:30 PM CDT) Pathologist [facility] Cytology Non-Complex Case Manager Accession No: [id number] Reference: [id number] Specimen: LEFT, THYROID Clinical History: LEFT THYROID NODULE Gross Description: 3 FIXED SLIDES, 3 UNFIXED SLIDES, 10 ML RPMI Preparation Method: 3 PAP STAINED SLIDES, 3 DIFF-QUIK STAINED SLIDES SPECIMEN ADEQUACY: ADEQUATE FINAL DIAGNOSIS: THYROID, LEFT, FNA - BENIGN, CONSISTENT WITH A BENIGN FOLLICULAR NODULE MICROSCOPIC DESCRIPTION: Review of the 3 diff-quik and 3 pap stained slides shows groups of follicular cells with small, round, uniform nuclei. The majority of the follicular cells are intermixed with fibrin strands in a colloid background. There is no evidence of atypia within he groups of follicular cells. The findings are indicative of a benign follicular nodule. COMMENT(S): This case has been personally reviewed and interpreted by the attending (teaching) pathologist. Final Diagnosis performed by Caesar Fernandes MD. Electronically signed 12/28/[address] [facility] Other (qualifier value) 12/26/2016 12:30 PM CDT 12/27/2016 11:17 AM CDT Narrative [facility] - 12/28/2016 12:55 PM CDT Collection Date->12/26/16 Collection Time->12:30 PM Specimen A->Thyroid, Left Lobe nodule fine needle aspiration biopsy Aleta Nieves MD LAB - PATHOLOGY/CYTO LOGY ORDERABLES [facility] Care Teams Wardrobe Technician Relationship Specialty Start Date End Date Berta Davenport MD [facility] [place] [id number] PCP - General 12/27/16
--- OUTSIDE RECORDS SUMMARY | 2024-11-11 15:35 | XMS_ITS | Data Portability ---
Author Organization [facility] Address [address] [place] [address] Care Team Providers Care Filling Operator Name Role Phone LOW [place] Primary Care Provider [phone] Assessment Encounter Date Assessment Date Assessment LastModified by Organization Details LastModified Time 11/15/2023 11/15/2023 30 minutes of counseling and interview Not available 11/15/2023 13:53:20 Plan of Treatment Reminders Order Date Submit Date Provider Last Modified By Organization Details Last Modified Time Details Appointments None recorded. Lab iron + TIBC + ferritin, serum 2023 024 [facility] (Lab), [address], [place], [address], 4 13:06:02 vitamin B12, serum 2023 024 [facility] (Lab), [address], [place], [address], 4 13:06:03 TSH, serum or plasma 2023 024 [facility] (Lab), [address] [place], [address], 4 13:06:02 thyroglobul in Ab, serum 2023 024 [facility] (Lab), [address], [place], [address], 4 13:06:03 magnesium, RBC 2023 024 [facility] (Lab), [address], [place], [address], 4 13:06:04 calcium, serum or plasma 2023 024 [facility] (Lab), [address] [place], [address], 4 13:06:01 testosteron e free/testos terone total, ratio, serum 2023 024 [facility] (Lab), [address] [place], [address], 4 13:06:04 ca 125, serum 2023 024 [facility] (Lab), [address] [place], [address], 4 01:09:01 carcinoembr yonic Ag, quant, serum or plasma 2023 024 [facility] (Lab), [address], [place], [address], 4 01:09:02 cancer Ag 19-9, serum or plasma 2023 024 [facility] (Lab), [address], [place], [address], 4 01:09:03 testosteron e, free + total, serum 2023 024 [facility] (Lab), [address] [place], [address], 4 01:09:08 estradiol, serum 2023 024 [facility] (Lab), [address] [place], [address], 4 01:09:05 progesteron e, serum 2023 024 [facility] (Lab), [address], [place], [address], 4 01:09:06 lh + FSH, serum 2023 024 [facility] (Lab), [address] [place], [address], 4 01:09:06 TSH, serum or plasma 2023 024 [facility] (Lab), [address] [place], [address], 4 01:09:03 free T3, quantitativ e, dialysis serum or plasma 2023 024 [facility] (Lab), [address], [place], [address], 4 01:09:06 T4, free, serum 2023 024 [facility] (Lab), [address] [place], [address], 4 01:09:04 thyroid peroxidase (tpo) Ab, serum 2023 024 [facility] (Lab), [address] [place], [address], 4 01:09:04 HbA1c (hemoglobin A1c), blood 2023 024 [facility] (Lab), [address] [place], [address], 4 01:09:02 17-hydroxyp rogesterone , QN, serum 2023 024 [facility] (Lab), [address] [place], [address], 4 01:09:07 dhea-sulfat e, serum 2023 024 [facility] (Lab), [address] [facility], [place], [address], 4 01:09:01 PTH (parathyroi d hormone), intact + calcium, serum or plasma 2023 024 [facility] (Lab), [address] [facility], [place], [address], 4 01:09:05 vitamin D, 25-hydroxy, total, serum 2023 024 [facility] (Lab), [address] [facility], [place], [address], 4 01:09:07 CMP, serum or plasma 2023 024 [facility] (Lab), [address] [facility], [place], [address], 4 01:09:00 Referral None recorded. Procedures None recorded. Surgeries None recorded. Imaging US, pelvis [address], [address], [address], [place], [address], 4 20:03:55 US, transvagina l [address], [address], [address], [place], [address], 4 20:03:55 Medication Orders None recorded. Patient TargetsNo targets recorded. Patient InstructionsNo instructions recorded. Reason for Referral None Reported. Results Created Date Observation Date Name Description Value Unit Range Abnormal Flag Note LastModifiedBy Organization Detail LastModifiedTime 04/03/20 23 04/03/2023 CBC W/DIF F WBC 7.7 10'3/ uL 3.6-10 .2 Not Available [facility] (Lab) [address], [place], [address], 04/08/2023 15:05:34 04/03/20 23 04/03/2023 CBC W/DIF F RBC 5.05 10'6/ uL (based on docume nted legal sex) 4.10-5 .30 Not Available [facility] (Lab) [address], [place], [address], 04/08/2023 15:05:34 04/03/20 23 04/03/2023 CBC W/DIF F HGB 15.4 g/dL (based on docume nted legal sex) 11.9-1 5.8 Not Available [facility] (Lab) [address], [place], [address], 04/08/2023 15:05:34 04/03/20 23 04/03/2023 CBC W/DIF F HCT 49.4 % (based on docume nted legal sex) 37.4-4 8.3 high Not Available [facility] (Lab) [address], [place], [address], 04/08/2023 15:05:34 04/03/20 23 04/03/2023 CBC W/DIF F MCV 97.8 fL 82.0-9 9.0 Not Available [facility] (Lab) [address], [place], [address], 04/08/2023 15:05:34 04/03/20 23 04/03/2023 CBC W/DIF F MCH 30.5 pg 27.0-3 3.0 Not Available [facility] (Lab) [address] [place], [address], 04/08/2023 15:05:34 04/03/20 23 04/03/2023 CBC W/DIF F MCHC 31.2 g/dL 32.0-3 6.0 low Not Available [facility] (Lab) [address], [place], [address], 04/08/2023 15:05:34 04/03/20 23 04/03/2023 CBC W/DIF F RDW 13.4 % 11.0-1 5.0 Not Available [facility] (Lab) [address] [facility], [place], [address], 04/08/2023 15:05:34 04/03/20 23 04/03/2023 CBC W/DIF F plt 302 10'3/ uL 150-45 0 Not Available [facility] (Lab) [address] [facility], [place], [address], 04/08/2023 15:05:34 04/03/20 23 04/03/2023 CBC W/DIF F MPV 11.9 fL 9.8-12 .7 Not Available [facility] (Lab) [address] [facility], [place], [address], 04/08/2023 15:05:34 04/03/20 23 04/03/2023 CBC W/DIF F NRBC's 0.0 % 0 Not Available [facility] (Lab) [address] [facility], [place], [address], 04/08/2023 15:05:34 04/03/20 23 04/03/2023 CBC W/DIF F absolute NRBCs 0.0 10'3/ uL 0 Not Available [facility] (Lab) [address] [facility], [place], [address], 04/08/2023 15:05:34 04/03/20 23 04/03/2023 CBC W/DIF F neutrophils 68.4 % 37.0-7 2.0 Not Available [facility] (Lab) [address] [facility], [place], [address], 04/08/2023 15:05:34 04/03/20 23 04/03/2023 CBC W/DIF F lymphocytes 24.5 % 16.0-4 8.0 Not Available [facility] (Lab) [address] [facility], [place], [address], 04/08/2023 15:05:34 04/03/20 23 04/03/2023 CBC W/DIF F monocytes 5.3 % 4.0-14 .0 Not Available [facility] (Lab) [address] [facility], [place], [address], 04/08/2023 15:05:34 04/03/20 23 04/03/2023 CBC W/DIF F eosinophils 0.8 % 0.0-9. 0 Not Available [facility] (Lab) [address] [facility], [place], [address], 04/08/2023 15:05:34 04/03/20 23 04/03/2023 CBC W/DIF F basophils 0.6 % 0.0-2. 0 Not Available [facility] (Lab) [address] [facility], [place], [address], 04/08/2023 15:05:34 04/03/20 23 04/03/2023 CBC W/DIF F immature granulocytes 0.4 % no define d refere nce range Not Available [facility] (Lab) [address] [facility], [place], [address], 04/08/2023 15:05:34 04/03/20 23 04/03/2023 CBC W/DIF F absolute neutrophils 5.3 10'3/ uL 1.1-6. 0 Not Available [facility] (Lab) [address] [facility], [place], [address], 04/08/2023 15:05:34 04/03/20 23 04/03/2023 CBC W/DIF F absolute lymphocytes 1.9 10'3/ uL 0.7-3. 4 Not Available [facility] (Lab) [address] [facility], [place], [address], 04/08/2023 15:05:34 04/03/20 23 04/03/2023 CBC W/DIF F absolute monocytes 0.4 10'3/ uL 0.3-1. 0 Not Available [facility] (Lab) [address] [facility], [place], [address], 04/08/2023 15:05:34 04/03/20 23 04/03/2023 CBC W/DIF F absolute eosinophils 0.1 10'3/ uL 0.0-0. 6 Not Available [facility] (Lab) [address] [facility], [place], [address], 04/08/2023 15:05:34 04/03/20 23 04/03/2023 CBC W/DIF F absolute basophils 0.1 10'3/ uL 0.0-0. 1 Not Available [facility] (Lab) [address] [facility], [place], [address], 04/08/2023 15:05:34 04/03/20 23 04/03/2023 CBC W/DIF F absolute immature granulocytes 0.0 10'3/ uL 0.00-0 .10 2022 1:39 AM: P indic ates parti al resul ts on a panel have been relea sed. Addit ional resul ts will follo w. 2022 1:39 AM: This resul t has been final verif ied. No addit ional or hamilton ed resul ts are expec malick. Not Available [facility] (Lab) [address] [facility], [place], [address], 04/08/2023 15:05:34 04/03/20 23 04/03/2023 HEMOG LOBIN A1C hemoglobin A1C 5.1 % 0-5.6 The Ameri can Diabe josé miguel Assoc iatio n recom mends that a prima ry goal of thera lynnette garcia d be a HBA1C of < 7% and that physi cianida garcia d reeva luate the treat ment regim en in patie nts with HBA1C value s consi stent ly > 8%. <5.7% Samantha l 5.7 - 6.4% Incre ased risk for diabe josé miguel >=6.5 % Diagn ostic of diabe josé miguel <7.0% Goal of thera py >8.0% Actio n sugge sted Not Available [facility] (Lab) [address] [facility], [place], [address], 04/08/2023 15:05:35 04/03/20 23 04/03/2023 DHEA SULFA TE DHEA-sulfate 202 ug/dL Femal e Range s Age(y ) Range (ug/d L) 10-15 34-28 0 15-20 65-36 8 20-25 148-4 07 25-35 99-34 0 35-45 61-33 7 45-55 35-25 6 55-65 19-20 5 65-75 9-246 > 75 12-15 4 Not Available [facility] (Lab) [address] [facility], [place], [address], 04/08/2023 15:05:36 04/03/20 23 04/03/2023 LIPID PANEL ,AMA (LDL- CALC) total cholesterol 194 mg/dL 0-199 Not Available [facility] (Lab) [address] [facility], [place], [address], 04/08/2023 15:05:37 04/03/20 23 04/03/2023 LIPID PANEL ,AMA (LDL- CALC) triglyceride s 204 mg/dL 0.00-1 50.00 high NCEP Refer ence Value s for Trigl yceri don: Samantha l: <150 mg/dL Borde rline High: 150 - 199 mg/dL High: 200 - 499 mg/dL Very High: >/= 500 mg/dL Not Available [facility] (Lab) [address] [facility], [place], [address], 04/08/2023 15:05:37 04/03/20 23 04/03/2023 LIPID PANEL ,AMA (LDL- CALC) HDL cholesterol 52 mg/dL >40 Not Available [facility] (Lab) [address] [place], [address], 04/08/2023 15:05:37 04/03/20 04/03/2023 LIPID PANEL ,AMA (LDL- CALC) LDL cholesterol 110 mg/dL 0-99 high Cutof f value s recom sima d by the Natio nal Stephania stero l Educa tion Progr am: JUAN ABLE: Stephania stero l <200 mg/dL LDL <100 mg/dL BORDE RLINE : Stephania stero l 200-2 39 mg/dL LDL 101-1 59 mg/dL HIGHE R RISK: Stephania stero l >240 mg/dL LDL >160 mg/dL , HDL <40 mg/dL Not Available [facility] (Lab) [address] [facility], [place], [address], 04/08/2023 15:05:37 04/03/2004/03/2023 LIPID PANEL ,AMA (LDL- CALC) non-HDL cholesterol 142 mg/dL no refere nce range A reaso nable goal for non-H DL stephania stero l is one that is 30 mg/dL highe r than the LDL stephania stero l goal. Not Available [facility] (Lab) [address] [facility], [place], [address], 04/08/2023 15:05:37 04/03/2004/03/2023 LIPID PANEL ,AMA (LDL- CALC) chol/HDL ratio 3.7 . 0.0-5. 0 On January 15, 2023, RUST labor atori alexi hamilton ed the equat ion for calcu latin g estim ated low-d ensit y lipop rotei n-cho leste rol (LDL- C) from the Fried james equat ion to the Jody aguero/Randall kingsley equat ion. This new equat ion is only valid for lipid panel s with trigl yceri don < 400 mg/dL . Studi es have demon strat ed that this new equat ion will impro ve the accur acy of LDL-C , espec ially in scena martell when LDL-C janay ntrat ions are relat ively low (< 100 mg/dL ), trigl yceri don are eleva malick, or patie nt is non-f astin g. Refer ences : - Mervin Mart, Maynor Jaimes , Kayce camejo, Terell Erickson, Terell byrne, Christopher valle , and Renny Parish . 2013. Comp ariso n of a Novel Metho d vs the Fried james Equat ion for Estim ating Low-D ensit y Lipop rotei n Stephania stero l Level s from the Stand javier Lipid Proflizeth le. JAYDEN: The Journ al of the Ameri can Medic al Assoc iatio n 310 (19): 2060- . - Beverley marie V, Medina J, Pooja ar A, Solomon M, Tyesha e R, Shaista marie E, Jaida valle RS, Jem SR, Jody n SS. Fast ing Versu s Nonfa sting and Low-D ensit y Lipop rotei n Stephania stero l Accur acy. Circu latio n. 2017Sep 24;137 (1):1 0-19. Not Available [facility] (Lab) [address] [place], [address], 04/08/2023 15:05:37 04/03/20 23 04/03/2023 CMP(C OMPRE HENSI VE METAB OLIC PANEL ) sodium 143 mmol/ L 133-14 6 Not Available [facility] (Lab) [address] [place], [address], 04/08/2023 15:05:38 04/03/20 23 04/03/2023 CMP(C OMPRE HENSI VE METAB OLIC PANEL ) potassium 3.6 mmol/ L 3.5-5. 1 Not Available [facility] (Lab) [address] [place], [address], 04/08/2023 15:05:38 04/03/20 23 04/03/2023 CMP(C OMPRE HENSI VE METAB OLIC PANEL ) chloride 101 mmol/ L 98-107 Not Available [facility] (Lab) [address] [place], [address], 04/08/2023 15:05:38 04/03/20 23 04/03/2023 CMP(C OMPRE HENSI VE METAB OLIC PANEL ) carbon dioxide 29 mmol/ L 21-31 Not Available [facility] (Lab) [address] [facility], [place], [address], 04/08/2023 15:05:38 04/03/20 23 04/03/2023 CMP(C OMPRE HENSI VE METAB OLIC PANEL ) anion gap 13 mmol/ L 4-13 Not Available [facility] (Lab) [address] [facility], [place], [address], 04/08/2023 15:05:38 04/03/20 23 04/03/2023 CMP(C OMPRE HENSI VE METAB OLIC PANEL ) blood urea nitrogen 7 mg/dL 7-25 Not Available [facility] (Lab) [address] [facility], [place], [address], 04/08/2023 15:05:38 04/03/20 23 04/03/2023 CMP(C OMPRE HENSI VE METAB OLIC PANEL ) creatinine 0.72 mg/dL 0.60-1 .30 Not Available [facility] (Lab) [address] [facility], [place], [address], 04/08/2023 15:05:38 04/03/20 23 04/03/2023 CMP(C OMPRE HENSI VE METAB OLIC PANEL ) egfrcr (CKD-epi 2020) >90 mL/mi n/1.7 3_m2 >=60 Not Available [facility] (Lab) [address] [facility], [place], [address], 04/08/2023 15:05:38 04/03/20 23 04/03/2023 CMP(C OMPRE HENSI VE METAB OLIC PANEL ) calcium 10.3 mg/dL 8.3-10 .5 Not Available [facility] (Lab) [address] [facility], [place], [address], 04/08/2023 15:05:38 04/03/20 23 04/03/2023 CMP(C OMPRE HENSI VE METAB OLIC PANEL ) glucose 79 mg/dL 70-100 Not Available [facility] (Lab) [address] [facility], [place], [address], 04/08/2023 15:05:38 04/03/20 23 04/03/2023 CMP(C OMPRE HENSI VE METAB OLIC PANEL ) protein, total 7.6 g/dL 6.4-8. 3 Not Available [facility] (Lab) [address] [facility], [place], [address], 04/08/2023 15:05:38 04/03/20 23 04/03/2023 CMP(C OMPRE HENSI VE METAB OLIC PANEL ) albumin 4.9 g/dL 3.5-5. 0 Not Available [facility] (Lab) [address] [facility], [place], [address], 04/08/2023 15:05:38 04/03/20 23 04/03/2023 CMP(C OMPRE HENSI VE METAB OLIC PANEL ) ALT 38 units /L 9-43 Not Available [facility] (Lab) [address] [facility], [place], [address], 04/08/2023 15:05:38 04/03/20 23 04/03/2023 CMP(C OMPRE HENSI VE METAB OLIC PANEL ) alkaline phosphatase 73 units /L 34-104 Not Available [facility] (Lab) [address] [place], [address], 04/08/2023 15:05:38 04/03/20 23 04/03/2023 CMP(C OMPRE HENSI VE METAB OLIC PANEL ) AST 23 units /L 13-39 Not Available [facility] (Lab) [address] [place], [address], 04/08/2023 15:05:38 04/03/20 23 04/03/2023 CMP(C OMPRE HENSI VE METAB OLIC PANEL ) bilirubin, total 1.6 mg/dL 0.2-1. 2 high Not Available [facility] (Lab) [address] [facility], [place], [address], 04/08/2023 15:05:38 04/03/20 23 04/03/2023 TSH, REFLE X FREE T4 TSH 2.91 uIU/m L 0.30-5 .33 Not Available [facility] (Lab) [address] [place], [address], 04/08/2023 15:05:39 04/03/20 23 04/03/2023 HUMAN SEX HORMO NE ELSA NG GLOBU VENUS sex hormone binding globulin 52.7 nmole s/L 16.8-1 25.2 Not Available [facility] (Lab) [address] [place], [address], 04/08/2023 15:05:40 04/03/20 23 04/03/2023 ESTRA DIOL estradiol 317.0 pg/mL This assay was perfo rmed using [employer] ratio n reage nts and test kits. Value s obtai axel with other assay metho ds or kits canno t be used inter [facility] . Femal e Estra diol Range s: Folli cular phase 12.4- 233 pg/mL Ovula tion phase 41.0- 398 pg/mL Lutea l phase 22.3- 341 pg/mL Postm enopa usal< 5-138 pg/mL Healt hy Pregn ant Women 1st Trime ster1 54-32 43 pg/mL 2nd Trime ster1 561-2 1280 pg/mL 3rd Trime ster8 525-> 54849 pg/mL Not Available [facility] (Lab) [address] [place], [address], 04/08/2023 15:05:41 04/03/20 23 04/03/2023 PROGE STERO NE progesterone 1.46 NG/mL This assay was perfo rmed using [employer] reage nts and test kits. Value s obtai axel with other assay metho ds or kits canno t be used inter [facility] . Femal e Proge stero ne Range s: Folli cular phase 0.06- 0.89 ng/mL Ovula tion phase 0.12- 12.00 ng/mL Lutea l phase 1.83- 23.90 ng/mL Postm enopa usal< 0.05- 0.13 ng/mL Healt hy Pregn ant Women 1st Trime ster1 1.0-4 4.30 2nd Trime ster2 5.40- 83.30 3rd Trime ster5 8.70- 214.0 0 Not Available [facility] (Lab) [address] [facility], [place], [address], 04/08/2023 15:05:42 04/03/2004/03/2023 PROLA CTIN prolactin, total 11.80 NG/mL 4.79-2 3.30 This assay was perfo rmed using [employer] ratio n reage nts and test kits. Value s obtai axel with other assay metho ds or kits canno t be used inter [facility] . Not Available [facility] (Lab) [address] [facility], [place], [address], 04/08/2023 15:05:43 04/03/2004/03/2023 LH (LUTE NIZIN G HORMO NE) LH 31.0 mIU/m L This assay was perfo rmed using [employer] reage nts and test kits. Value s obtai axel with other assay metho ds or kits canno t be used inter [facility] . Femal es Mid-F ollic ular: 2.4-1 2.6 mIU/m L Mid-C ycle: 14.0- 95.6 mIU/m L Mid-L uteal : 1.0-1 1.4 mIU/m L Postm enopa use: 7.7-5 8.5 mIU/m L Not Available [facility] (Lab) [address] [place], [address], 04/08/2023 15:05:44 07/1204/03/2023 FSH FSH 6.8 mIU/m L This assay was perfo rmed using [employer] reage nts and test kits. Value s obtai axel with other assay metho ds or kits canno t be used inter [facility] . Femal es Folli cular : 3.5-1 2.5 mIU/m L Ovula tion: 4.7-2 1.5 mIU/m L Lutea l: 1.7-7 .7 mIU/m L Postm enopa use: 25.8- 134.8 mIU/m L Not Available [facility] (Lab) [address] [facility], [place], [address], 04/08/2023 15:05:45 04/03/20 23 04/03/2023 17-OH PROGE STERO NE 17-hydroxypr ogesterone, lc/MS/MS 239 NG/dL Adult Femal e Refer ence Range s for 17-Hy droxy proge stero ne: Pre-M enopa usal Mid Folli cular : 23-10 2 ng/dL Pre-M enopa usal Surge : 67-34 9 ng/dL Pre-M enopa usal Mid Lutea l: 139-4 31 ng/dL Postm enopa usal Phase : < or = 45 ng/dL Pregn gracie: First Trime ster: 78-45 7 ng/dL Secon d Trime ster: 90-35 7 ng/dL Third Trime ster: 144-5 78 ng/dL This test was devel oped and its allen tical perfo rmanc e albert cteri stics have been deter mined by [facility] [place] . It has not been clear ed or appro lele by FDA. This assay has been valid ated pursu ant to the CLIA regul ation s and is used for clini dc purpo ses. Perfo rming Organ izati on Infor mat n: Site ID: [id number] Name: [facility]/Dajuan kaya [facility] an Arsh Plattis tranrizwan , Addre ss: [id number] [place] [address] Dire tor: Nedra delgadillo MD,Ph D,ALEM Not Available [facility] (Lab) [address] [facility], [place], [address], 04/08/2023 15:05:46 04/03/20 23 04/03/2023 TESTO STERO NE, FREE( DIALY SIS) AND TOTAL (LC/M S/MS) testosterone , total 31 NG/dL 2-45 For addit ional infor conchis rosario e refer to http: //[facility] aguero.que stdia gnost ics.c om/fa q/Tot alTalexi [facility] (This link is being provi ded for infor debra moya/ educa sang l purpo ses only. ) This test was devel oped and its allen tical perfo rmanc e albert cteri stics have been deter mined by [employer]. It has not been clear ed or appro lele by the FDA. This assay has been valid ated pursu ant to the CLIA regul ation s and is used for clini dc purpo ses. Not Available [facility] (Lab) [address] [facility], [place], [address], 04/08/2023 15:05:47 04/03/20 23 04/03/2023 TESTO STERO NE, FREE( DIALY SIS) AND TOTAL (LC/M S/MS) testosterone , free 3.7 pg/mL 0.1-6. 4 This test was devel oped and its allen tical perfo rmanc e albert cteri stics have been deter mined by [facility]. It has not been clear ed or appro lele by the FDA. This assay has been valid ated pursu ant to the CLIA regul ation s and is used for clini dc purpo ses. Perfo rming Organ izati on Infor debra n: Site ID: [id number] Name: [facility]-Dajuan kaya [place] Addre ss: [id number] [place] [address] Dire tor: Maria C alvarez M.D. Not Available [facility] (Lab) [address] [facility], [place], [address], 04/08/2023 15:05:47 05/22/20 23 05/22/2023 LIPID PANEL ,AMA (LDL- CALC) total cholesterol 163 mg/dL 0-199 Not Available [facility] (Lab) [address] [facility], [place], [address], 05/23/2023 03:17:22 05/22/20 23 05/22/2023 LIPID PANEL ,AMA (LDL- CALC) triglyceride s 145 mg/dL 0.00-1 50.00 NCEP Refer ence Value s for Trigl yceri don: Samantha l: <150 mg/dL Borde rline High: 150 - 199 mg/dL High: 200 - 499 mg/dL Very High: >/= 500 mg/dL Not Available [facility] (Lab) [address] [place], [address], 05/23/2023 03:17:22 05/22/20 23 05/22/2023 LIPID PANEL ,AMA (LDL- CALC) HDL cholesterol 41 mg/dL >40 Not Available [facility] (Lab) [address] [place], [address], 05/23/2023 03:17:22 05/22/20 23 05/22/2023 LIPID PANEL ,AMA (LDL- CALC) LDL cholesterol 97 mg/dL 0-99 Cutof f value s recom sima d by the Miguel nal Stephania stero l Educa tion Progr am: JUAN ABLE: Stephania stero l <200 mg/dL LDL <100 mg/dL BORDE RLINE : Stephania stero l 200-2 39 mg/dL LDL 101-1 59 mg/dL HIGHE R RISK: Stephania stero l >240 mg/dL LDL >160 mg/dL , HDL <40 mg/dL Not Available [facility] (Lab) [address] [place], [address], 05/23/2023 03:17:22 05/22/20 23 05/22/2023 LIPID PANEL ,AMA (LDL- CALC) non-HDL cholesterol 122 mg/dL no refere nce range A reaso nable goal for non-H DL stephania stero l is one that is 30 mg/dL highe r than the LDL stephania stero l goal. Not Available [facility] (Lab) [address], [place], [address], 05/23/2023 03:17:22 05/22/2005/22/2023 LIPID PANEL ,AMA (LDL- CALC) chol/HDL ratio 4.0 . 0.0-5. 0 On January 15, 2023, RUST labor atori alexi hamilton ed the equat ion for calcu latin g estim ated low-d ensit y lipop rotei n-cho leste rol (LDL- C) from the Fried james equat ion to the Jody n/Hop kins equat ion. This new equat ion is only valid for lipid panel s with trigl yceri don < 400 mg/dL . Schuyleri es have demon strat ed that this new equat ion will impro ve the accur acy of LDL-C , espec ially in scena martell when LDL-C janay ntrat ions are relat ively low (< 100 mg/dL ), trigl yceri don are eleva malick, or patie nt is non-f astin g. Refer ences : - Jody aguero, Mervin Fall, Maynor Jaimes , [facility] juan carlos camejo, Terell Erickson, Terell byrne, Christopher valle , and Renny Parish . 2013. Comp ariso n of a Novel Metho d vs the Fried james Equat ion for Estim ating Low-D ensit y Lipop rotei n Stephania stero l Level s from the Stand javier Lipid Profi le. JAYDEN: The Journ al of the Ameri can Medic al Assoc iatio n 310 (19): 2060- . - Beverley marei V, Medina J, Pooja marie A, Solomon M, Tyesha guerra R, Shaista marie E, Jaida valle RS, Parish SR, Jody n SS. Fast ing Versu s Nonfa sting and Low-D ensit y Lipop rotei n Stephania stero l Accur acy. Circu tanya n. 2017Sep 24;137 (1):1 0-19. Not Available [facility] (Lab) [address] , [place], [address], 05/23/2023 03:17:22 05/22/20 23 05/22/2023 VITAM IN D, 25-OH (TOTA L D2/D3 ) vitamin D, 25-hydroxy, total 46.8 NG/mL 30.0-1 00.0 Sugge stive of Defic iency : <20 ng/mL Sugge stive of Insuf ficie ncy: 20-29 ng/mL Sugge stive of Suffi cienc y: 30-10 0 ng/mL Sugge stive of Toxic ity: >150 ng/mL Not Available [facility] (Lab) [address] , [place], [address], 05/23/2023 03:17:22 07/26/20 23 07/26/2023 JOY TIN / IRON / TRANS JOY N / TIBC iron 87 ug/dL 40-170 Not Available [facility] (Lab) [address], [place], [address], 07/27/2023 08:15:33 07/26/20 23 07/26/2023 JOY TIN / IRON / TRANS JOY N / TIBC transferrin 209 mg/dL 200-36 0 Not Available [facility] (Lab) [address], [place], [address], 07/27/2023 08:15:33 07/26/20 23 07/26/2023 JOY TIN / IRON / TRANS JOY N / TIBC ferritin 119.8 NG/mL 8.0-25 2.0 Not Available [facility] (Lab) [address], [place], [address], 07/27/2023 08:15:33 07/26/20 23 07/26/2023 JOY TIN / IRON / TRANS JOY N / TIBC TIBC 293 ug/dL 250-45 0 Not Available [facility] (Lab) [address] [facility], [place], [address], 07/27/2023 08:15:33 07/26/20 23 07/26/2023 JOY TIN / IRON / TRANS JOY N / TIBC iron saturation 30 % 20-55 Not Available [facility] (Lab) [address] [facility], [place], [address], 07/27/2023 08:15:33 07/26/20 23 07/26/2023 VITAM IN D, 25-OH (TOTA L D2/D3 ) vitamin D, 25-hydroxy, total 34.1 NG/mL 30.0-1 00.0 Sugge stive of Defic iency : <20 ng/mL Sugge stive of Insuf ficie ncy: 20-29 ng/mL Sugge stive of Suffi cienc y: 30-10 0 ng/mL Sugge stive of Toxic ity: >150 ng/mL Not Available [facility] (Lab) [address] [facility], [place], [address], 07/27/2023 08:15:34 08/08/20 23 08/08/2023 TESTO STERO NE, FREE( DIALY SIS) AND TOTAL (LC/M S/MS) testosterone , total 12 NG/dL 2-45 For addit ional infor conchis rosario e refer to http: //[facility] [place] aguero.que stdia gnost ics.c om/fa q/ Total Testo stero neLCM SMSFA Q165 (This link is being provi ded for infor debra moya/ maría dukes purprizwan ses only. ) This test was devel oped and its allen tical perfo rmanc e albert cteri stics have been deter mined by [facility], [place]. It has not been clear ed or appro lele by the U.S. Food and Drug Admin istra tion. This assay has been valid ated pursu ant to the CLIA regul ation s and is used for clini dc purpo ses. Not Available [facility] (Lab) [address], [place], [address], 08/16/2023 13:53:41 08/08/20 23 08/08/2023 TESTO STERO NE, FREE( DIALY SIS) AND TOTAL (LC/M S/MS) testosterone , free 1.6 pg/mL 0.1-6. 4 This test was devel oped and its allen tical perfo rmanc e albert cteri stics have been deter mined by [facility] [place]. It has not been clear ed or appro lele by the U.S. Food and Drug Admin istra tion. This assay has been valid ated pursu ant to the CLIA regul ation s and is used for clini dc purpo ses. Perfo rming Organ izati on Infor debra n: Site ID: AMD Name: [facility] ostgeoff s [facility] shakeel Addre ss: [id number] [facility] oct [employer] [place], [place] Direc tor: Fouzia Chase MD PhD Not Available [facility] (Lab) [address], [place], [address], 08/16/2023 13:53:41 10/11/19 24 10/11/2023 CORTSAMREEN PATEL M cortisol 8.7 ug/dL R-REF ERENC E RANGE S: A.M. : 6.70 - 22.60 ug/dL - P.M. : <10.0 0 ug/dL Not Available [facility] (Lab) [address], [place], [address], 10/12/2023 08:35:55 10/30/19 24 10/30/2023 CMP(C OMPRE HENSI VE METAB OLIC PANEL ) sodium 144 mmol/ L 133-14 6 Not Available [facility] (Lab) [address], [place], [address], 11/10/2023 01:09:00 10/30/19 24 10/30/2023 CMP(C OMPRE HENSI VE METAB OLIC PANEL ) potassium 3.8 mmol/ L 3.5-5. 1 Not Available [facility] (Lab) [address] [facility], [place], [address], 11/10/2023 01:09:00 10/30/19 24 10/30/2023 CMP(C OMPRE HENSI VE METAB OLIC PANEL ) chloride 103 mmol/ L 98-107 Not Available [facility] (Lab) [address] [facility], [place], [address], 11/10/2023 01:09:00 10/30/19 24 10/30/2023 CMP(C OMPRE HENSI VE METAB OLIC PANEL ) carbon dioxide 30 mmol/ L 21-31 Not Available [facility] (Lab) [address] [facility], [place], [address], 11/10/2023 01:09:00 10/30/19 24 10/30/2023 CMP(C OMPRE HENSI VE METAB OLIC PANEL ) anion gap 11 mmol/ L 4-13 Not Available [facility] (Lab) [address] [facility], [place], [address], 11/10/2023 01:09:00 10/30/19 24 10/30/2023 CMP(C OMPRE HENSI VE METAB OLIC PANEL ) blood urea nitrogen 11 mg/dL 7-25 Not Available [facility] (Lab) [address] [place], [address], 11/10/2023 01:09:00 10/30/19 24 10/30/2023 CMP(C OMPRE HENSI VE METAB OLIC PANEL ) creatinine 0.74 mg/dL 0.60-1 .30 Not Available [facility] (Lab) [address] [place], [address], 11/10/2023 01:09:00 10/30/19 24 10/30/2023 CMP(C OMPRE HENSI VE METAB OLIC PANEL ) egfrcr (CKD-epi 2020) >90 mL/mi n/1.7 3_m2 >=60 Not Available [facility] (Lab) [address] [facility], [place], [address], 11/10/2023 01:09:00 10/30/19 24 10/30/2023 CMP(C OMPRE HENSI VE METAB OLIC PANEL ) calcium 10.1 mg/dL 8.3-10 .5 Not Available [facility] (Lab) [address] [facility], [place], [address], 11/10/2023 01:09:00 10/30/19 24 10/30/2023 CMP(C OMPRE HENSI VE METAB OLIC PANEL ) glucose 71 mg/dL 70-100 Not Available [facility] (Lab) [address] [facility], [place], [address], 11/10/2023 01:09:00 10/30/19 24 10/30/2023 CMP(C OMPRE HENSI VE METAB OLIC PANEL ) protein, total 7.3 g/dL 6.4-8. 3 Not Available [facility] (Lab) [address] [facility], [place], [address], 11/10/2023 01:09:00 10/30/19 24 10/30/2023 CMP(C OMPRE HENSI VE METAB OLIC PANEL ) albumin 4.7 g/dL 3.5-5. 0 Not Available [facility] (Lab) [address] [facility], [place], [address], 11/10/2023 01:09:00 10/30/19 24 10/30/2023 CMP(C OMPRE HENSI VE METAB OLIC PANEL ) ALT 15 units /L 9-43 Not Available [facility] (Lab) [address] [place], [address], 11/10/2023 01:09:00 10/30/19 24 10/30/2023 CMP(C OMPRE HENSI VE METAB OLIC PANEL ) alkaline phosphatase 80 units /L 34-104 Not Available [facility] (Lab) [address] [place], [address], 11/10/2023 01:09:00 10/30/19 24 10/30/2023 CMP(C OMPRE HENSI VE METAB OLIC PANEL ) AST 12 units /L 13-39 low Not Available [facility] (Lab) [address] [place], [address], 11/10/2023 01:09:00 10/30/19 24 10/30/2023 CMP(C OMPRE HENSI VE METAB OLIC PANEL ) bilirubin, total 1.3 mg/dL 0.2-1. 2 high Not Available [facility] (Lab) [address] [facility], [place], [address], 11/10/2023 01:09:00 10/30/19 24 10/30/2023 CA 125 Ca 125 17.0 units /mL 0.0-35 .0 This assay was perfo rmed using [employer] [facility] [facility] [employer]po ratio n reage nts and test kits. Value s obtai axel with other assay metho ds or kits canno t be used inter [facility] [facility] . Not Available [facility] (Lab) [address] [facility], [place], [address], 11/10/2023 01:09:01 10/30/19 24 10/30/2023 DHEA SULFA TE DHEA-sulfate 104 ug/dL Femal e Range s Age(y ) Range (ug/d L) 10-15 34-28 0 15-20 65-36 8 20-25 148-4 07 25-35 99-34 0 35-45 61-33 7 45-55 35-25 6 55-65 19-20 5 65-75 9-246 > 75 12-15 4 Not Available [facility] (Lab) [address] [place], [address], 11/10/2023 01:09:01 10/30/19 24 10/30/2023 CEA cea 1.0 NG/mL 0.0-3. 0 This assay was perfo rmed using [employer]po ratio n reage nts and test kits. Value s obtai axel with other assay metho ds or kits canno t be used inter [facility] . Not Available [facility] (Lab) [address] [facility], [place], [address], 11/10/2023 01:09:02 10/30/19 24 10/30/2023 HEMOG LOBIN A1C hemoglobin A1C 5.2 % 0-5.6 The Ameri can Diabe josé miguel [employer] iatio n recom mends that a prima ry goal of thera py shoul d be a HBA1C of < 7% and that physi cians shoul d reeva luate the treat ment regim en in patie nts with HBA1C value s consi stent ly > 8%. <5.7% Samantha l 5.7 - 6.4% Incre ased risk for diabe josé miguel >=6.5 % Diagn ostic of diabe josé miguel <7.0% Goal of thera py >8.0% Actio n sugge sted Not Available [facility] (Lab) [address] [facility], [place], [address], 11/10/2023 01:09:02 10/30/19 24 10/30/2023 CARBO HYDRA TE ANTIG EN 19-9 Ca 19-9 7 U/mL 0-35 This assay was perfo rmed using [employer]po ratio n reage nts and test kits. Value s obtai axel with other assay metho ds or kits canno t be used inter [facility] . Not Available [facility] (Lab) [address] [facility], [place], [address], 11/10/2023 01:09:03 10/30/19 24 10/30/2023 TSH TSH 2.34 uIU/m L 0.30-5 .33 Not Available [facility] (Lab) [address] [facility], [place], [address], 11/10/2023 01:09:03 10/30/19 24 10/30/2023 T4 FREE T4, free 0.79 NG/dL 0.60-1 .40 This assay is susce ptibl e to inter isaias ce from high level s of bioti n which may false ly eleva te resul ts. Pleas e corre late with clini dc findi ngs. Not Available [facility] (Lab) [address] [place], [address], 11/10/2023 01:09:04 10/30/19 24 10/30/2023 TPO ANTIB MANN thyroperoxid ase antibodies 0.5 IU/mL 0.0-9. 0 Not Available [facility] (Lab) [address] [place], [address], 11/10/2023 01:09:04 10/30/19 24 10/30/2023 PTH WITH CALCI UM PTH, intact 47.3 pg/mL 12.0-8 8.0 Not Available [facility] (Lab) [address] [place], [address], 11/10/2023 01:09:05 10/30/19 24 10/30/2023 PTH WITH CALCI UM calcium 10.1 mg/dL 8.3-10 .5 Not Available [facility] (Lab) [address] [place], [address], 11/10/2023 01:09:05 10/30/19 24 10/30/2023 ESTRA DIOL estradiol 58.6 pg/mL This assay was perfo rmed using [employer]po ratio n reage nts and test kits. Value s obtai axel with other assay metho ds or kits canno t be used inter [facility] eanisha . Femal e Estra diol Range s: Folli cular phase 12.4- 233 pg/mL Ovula tion phase 41.0- 398 pg/mL Lutea l phase 22.3- 341 pg/mL Postm enopa usal< 5-138 pg/mL Healt hy Pregn ant Women 1st Trime ster1 54-32 43 pg/mL 2nd Trime ster1 561-2 1280 pg/mL 3rd Trime ster8 525-> 04024 pg/mL Not Available [facility] (Lab) [address] [facility], [place], [address], 11/10/2023 01:09:05 10/30/19 24 10/30/2023 PROGE STERO NE progesterone 0.24 NG/mL This assay was perfo rmed using [employer] Corpo ratio n reage nts and test kits. Value s obtai axel with other assay metho ds or kits canno t be used inter [place] eay . Femal e Proge stero ne Range s: Folli cular phase 0.06- 0.89 ng/mL Ovula tion phase 0.12- 12.00 ng/mL Lutea l phase 1.83- 23.90 ng/mL Postm enopa usal< 0.05- 0.13 ng/mL Healt hy Pregn ant Women 1st Trime ster1 1.0-4 4.30 2nd Trime ster2 5.40- 83.30 3rd Trime ster5 8.70- 214.0 0 Not Available [facility] (Lab) [address] [facility], [place], [address], 11/10/2023 01:09:05 10/30/19 24 10/30/2023 FREE T3 T3, free 2.39 pg/mL 2.00-4 .40 This assay is susce ptibl e to inter feren ce from high level s of bioti n which may false ly eleva te resul ts. Pleas e corre late with clini dc findi ngs inclu ding TSH and FT4 resul ts. If clini kayode indic ated, Free T3 by Equil eveline [place] sis LC/MS may be perfo rmed. Not Available [facility] (Lab) [address] [facility], [place], [address], 11/10/2023 01:09:06 10/30/19 24 10/30/2023 FSH / LH FSH 31.3 mIU/m L This assay was perfo rmed using [employer] Corpo ratio n reage nts and test kits. Value s obtai axel with other assay metho ds or kits canno t be used inter [place] eably . Femal es Folli cular : 3.5-1 2.5 mIU/m L Ovula tion: 4.7-2 1.5 mIU/m L Lutea l: 1.7-7 .7 mIU/m L Postm enopa use: 25.8- 134.8 mIU/m L Not Available [facility] (Lab) [address] [facility], [place], [address], 11/10/2023 01:09:06 10/30/19 24 10/30/2023 FSH / LH LH 23.6 mIU/m L This assay was perfo rmed using [employer] Corpo ratio n reage nts and test kits. Value s obtai axel with other assay metho ds or kits canno t be used inter [place] eably . Femal es Mid-F ollic ular: 2.4-1 2.6 mIU/m L Mid-C ycle: 14.0- 95.6 mIU/m L Mid-L uteal : 1.0-1 1.4 mIU/m L Postm enopa use: 7.7-5 8.5 mIU/m L Not Available [facility] (Lab) [address] [facility], [place], [address], 11/10/2023 01:09:06 10/30/19 24 10/30/2023 VITAM IN D, 25-OH (TOTA L D2/D3 ) vitamin D, 25-hydroxy, total 50.0 NG/mL 30.0-1 00.0 Sugge stive of Defic iency : <20 ng/mL Sugge stive of Insuf ficie ncy: 20-29 ng/mL Sugge stive of Suffi cienc y: 30-10 0 ng/mL Sugge stive of Toxic ity: >150 ng/mL Not Available [facility] (Lab) [address] [place], [address], 11/10/2023 01:09:07 10/30/19 24 10/30/2023 17-OH PROGE STERO NE 17-hydroxypr ogesterone, lc/MS/MS 25 NG/dL Adult Femal e Refer ence Range s for 17-Hy droxy proge stero ne: Pre-M enopa usal Mid Folli cular : 23-10 2 ng/dL Pre-M enopa usal Surge : 67-34 9 ng/dL Pre-M enopa usal Mid Lutea l: 139-4 31 ng/dL Postm enopa usal Phase : < or = 45 ng/dL Pregn gracie: First Trime ster: 78-45 7 ng/dL Secon d Trime ster: 90-35 7 ng/dL Third Trime ster: 144-5 78 ng/dL This test was devel oped and its allen tical perfo rmanc e albert cteri stics have been deter mined by [facility]. It has not been clear ed or appro lele by FDA. This assay has been valid ated pursu ant to the CLIA regul ation s and is used for clini dc purpo ses. Perfo rming Organ izati on Infor matio n: Site ID: [id number] Name: [facility]/Dajuan kirkpatrick [facility] [place] , Addre ss: [id number] [facility] devan [facility] [place] [address] 512 Dire tor: Nedra delgadillo MD,Ph D,ALEM Not Available [facility] (Lab) [address] [place], [address], 11/10/2023 01:09:07 10/30/1910/30/2023 TESTO STERO NE, FREE, DIREC T WITH TOTAL testosterone , serum <3 NG/dL 4-50 low Not Available [facility] (Lab) [address] [place], [address], 11/10/2023 01:09:08 10/30/19 24 10/30/2023 TESTO STERO NE, FREE, DIREC T WITH TOTAL free testosterone (direct) 0.3 pg/mL 0.0-4. 2 Perfo rmed at: 01 - Lab[facility]helle Ortega n [address] [facility], [place] [address] Lab Direc tor: Sen sweet PhD, Phone : [phone] Perfo rmed at: 02 - [facility] [place] [address] [facility] , [place] [address] Lab Direc tor: Alessandra sanders MD, Phone : [phone] Not Available [facility] (Lab) [address] , [place], [address], 11/10/2023 01:09:08 12/18/19 24 12/18/2023 CALCI UM, SERUM /PLAS MA calcium 9.8 mg/dL 8.3-10 .5 Not Available [facility] (Lab) [address], [place], [address], 12/24/2023 13:06:01 12/18/19 24 12/18/2023 TSH, REFLE X FREE T4 TSH 1.39 uIU/m L 0.30-5 .33 Not Available [facility] (Lab) [address], [place], [address], 12/24/2023 13:06:02 12/18/19 24 12/18/2023 JOY TIN / IRON / TRANS JOY N / TIBC iron 100 ug/dL 40-170 Not Available [facility] (Lab) [address] [place], [address], 12/24/2023 13:06:02 12/18/19 24 12/18/2023 JOY TIN / IRON / TRANS JOY N / TIBC transferrin 213 mg/dL 200-36 0 Not Available [facility] (Lab) [address] [facility], [place], [address], 12/24/2023 13:06:02 12/18/19 24 12/18/2023 JOY TIN / IRON / TRANS JOY N / TIBC ferritin 126.7 NG/mL 8.0-25 2.0 Not Available [facility] (Lab) [address] [place], [address], 12/24/2023 13:06:02 12/18/19 24 12/18/2023 JOY TIN / IRON / TRANS JOY N / TIBC TIBC 298 ug/dL 250-45 0 Not Available [facility] (Lab) [address] [facility], [place], [address], 12/24/2023 13:06:02 12/18/19 24 12/18/2023 JOY TIN / IRON / TRANS JOY N / TIBC iron saturation 34 % 20-55 Not Available [facility] (Lab) [address] [facility], [place], [address], 12/24/2023 13:06:02 12/18/19 24 12/18/2023 VITAM IN B12 vitamin B12 216 pg/mL 180-91 4 Samantha l Range : 180-9 14 pg/mL . Indet ermin ate Range : 145-1 80 pg/mL . Defic ient Range : <=145 pg/mL . Not Available [facility] (Lab) [address] [facility], [place], [address], 12/24/2023 13:06:02 12/18/19 24 12/18/2023 THYRO ID ANTIB MANN PANEL thyroglobuli n antibody <1.0 IU/mL <=3.9 Not Available [facility] (Lab) [address] [facility], [place], [address], 12/24/2023 13:06:03 12/18/19 24 12/18/2023 THYRO ID ANTIB MANN PANEL thyroperoxid ase antibodies 0.5 IU/mL 0.0-9. 0 This assay was perfo rmed using [employer] Coult er reage nts and test kits. Value s obtai axel with other assay metho ds or kits canno t be used inter [place] eably . Not Available [facility] (Lab) [address] [facility], [place], [address], 12/24/2023 13:06:03 12/18/19 24 12/18/2023 TESTO STERO NE, FREE( DIALY SIS) AND TOTAL (LC/M S/MS) testosterone , total 14 NG/dL 2-45 For addit ional conchis gruber refer to http: //dana [employer] gn[employer].c om/fa q/ Total Testo stero neLCM SMSFA Q165 (This link is being provi ded for faviolar aurarayray nal/ educa sang l purpo ses only. ) This test was devel oped and its allen tical perfo rmanc e albert cteri stics have been deter mined by [employer] [place]. It has not been clear ed or appro lele by the U.S. Food and Drug Admin istra tion. This assay has been valid ated pursu ant to the CLIA regul ation s and is used for clini dc purpo ses. Not Available [facility] (Lab) [address] [facility], [place], [address], 12/24/2023 13:06:03 12/18/19 24 12/18/2023 TESTO STERO NE, FREE( DIALY SIS) AND TOTAL (LC/M S/MS) testosterone , free 1.2 pg/mL 0.1-6. 4 This test was devel oped and its allen tical perfo rmanc e albert cteri stics have been deter mined by [employer] James [place]. It has not been clear ed or appro lele by the U.S. Food and Drug Admin istra tion. This assay has been valid ated pursu ant to the CLIA regul ation s and is used for clini dc purpo ses. Perfo rming Organ izati on [facility] aurarayray aguero: Site ID: AMD Name: [facility] [employer] shakeel Addre ss: [id number] [employer] [place], [place] Direc tor: Fouzia Chase MD PhD Not Available [facility] (Lab) [address] [place], [address], 12/24/2023 13:06:03 12/18/19 24 12/18/2023 MAGNE SIUM, RBC magnesium RBC 4.5 mg/dL 4.0-6. 4 This test was devel oped and its allen tical perfo rmanc e albert cteri stics have been deter mined by [facility] [place]. It has not been clear ed or appro lele by the U.S. Food and Drug Admin istra tion. This assay has been valid ated pursu ant to the CLIA regul ation s and is used for clini dc purpo ses. Perfo rming Organ izati on Infor matio n: Site ID: AMD Name: [facility] Addre ss: [id number] [employer] [place], [place] Direc tor: Fouzia Chase MD PhD Not Available [facility] (Lab) [address] [facility], [place], [address], 12/24/2023 13:06:04 02/05/20 24 02/05/2024 DHEA SULFA TE DHEA-sulfate 325 ug/dL Femal e Range s Age(y ) Range (ug/d L) 10-15 34-28 0 15-20 65-36 8 20-25 148-4 07 25-35 99-34 0 35-45 61-33 7 45-55 35-25 6 55-65 19-20 5 65-75 9-246 > 75 12-15 4 Not Available [facility] (Lab) [address] [facility], [place], [address], 02/11/2024 19:14:30 02/05/20 24 02/05/2024 ESTRA DIOL estradiol 120.0 pg/mL This assay was perfo rmed using [employer] ratio n reage nts and test kits. Value s obtai axel with other assay metho ds or kits canno t be used inter [place] eably . Femal e Estra diol Range s: Folli cular phasE 12.4- 233 pg/mL Ovula tion phasE 41.0- 398 pg/mL Lutea l phasE 22.3- 341 pg/mL Postm enopa usal <5-13 8 pg/mL Healt hy Pregn ant Women 1st Trime ster 154-3 243 pg/mL 2nd Trime ster 1561- 09116 pg/mL 3rd Trime ster 8525- >3000 0 pg/mL Not Available [facility] (Lab) [address] [place], [address], 02/11/2024 19:14:30 02/05/20 24 02/05/2024 PROGE STERO NE progesterone 5.13 NG/mL This assay was perfo rmed using [employer] ratio n reage nts and test kits. Value s obtai axel with other assay metho ds or kits canno t be used inter [facility] . Femal e Proge stero ne Range s: Folli cular phasE 0.06- 0.89 ng/mL Ovula tion phasE 0.12- 12.00 ng/mL Lutea l phasE 1.83- 23.90 ng/mL Postm enopa usal <0.05 -0.13 ng/mL Healt hy Pregn ant Women 1st Trime ster 11.0- 44.30 2nd Trime ster 25.40 -83.3 0 3rd Trime ster 58.70 -214. 00 Not Available [facility] (Lab) [address] [place], [address], 02/11/2024 19:14:31 02/05/20 24 02/05/2024 PROLA CTIN prolactin, total 9.56 NG/mL 4.79-2 3.30 This assay was perfo rmed using [employer] ratio n reage nts and test kits. Value s obtai axel with other assay metho ds or kits canno t be used inter [facility] eay . Not Available [facility] (Lab) [address] [place], [address], 02/11/2024 19:14:31 02/05/20 24 02/05/2024 LH (LUTE NIZIN G HORMO NE) LH 23.6 mIU/m L This assay was perfo rmed using [employer] ratio n reage nts and test kits. Value s obtai axel with other assay metho ds or kits canno t be used inter [facility] . Femal es Mid-F ollic ular: 2.4-1 2.6 mIU/m L Mid-C ycle: 14.0- 95.6 mIU/m L Mid-L uteal : 1.0-1 1.4 mIU/m L Postm enopa use: 7.7-5 8.5 mIU/m L Not Available [facility] (Lab) [address] [facility], [place], [address], 02/11/2024 19:14:32 02/05/20 24 02/05/2024 FSH FSH 8.0 mIU/m L This assay was perfo rmed using [employer] n reage nts and test kits. Value s obtai axel with other assay metho ds or kits canno t be used inter [facility] . Femal es Folli cular : 3.5-1 2.5 mIU/m L Ovula tion: 4.7-2 1.5 mIU/m L Lutea l: 1.7-7 .7 mIU/m L Postm enopa use: 25.8- 134.8 mIU/m L Not Available [facility] (Lab) [address] [facility], [place], [address], 02/11/2024 19:14:32 02/05/20 24 02/05/2024 TSH, REFLE X FREE T4 TSH 1.39 uIU/m L 0.30-5 .33 Not Available [facility] (Lab) [address] [place], [address], 02/11/2024 19:14:32 02/05/20 24 02/05/2024 HUMAN SEX HORMO NE ELSA NG GLOBU VENUS sex hormone binding globulin 48.7 nmole s/L 16.8-1 25.2 Not Available [facility] (Lab) [address] [place], [address], 02/11/2024 19:14:33 02/05/20 24 02/05/2024 VITAM IN B12 vitamin B12 376 pg/mL 180-91 4 Samantha l Range : 180-9 14 pg/mL . Indet ermin ate Range : 145-1 80 pg/mL . Defic ient Range : <=145 pg/mL . Not Available [facility] (Lab) [address], [place], [address], 02/11/2024 19:14:33 02/05/20 24 02/05/2024 VITAM IN D, 25-OH (TOTA L D2/D3 ) vitamin D, 25-hydroxy, total 63.4 NG/mL 30.0-1 00.[address] of Defic iency : <20 ng/mL Sugge stive of Insuf ficie ncy: 20-29 ng/mL Sugge stive of Suffi cienc y: 30-10 0 ng/mL Sugge stive of Toxic ity: >150 ng/mL Not Available [facility] (Lab) [address], [place], [address], 02/11/2024 19:14:34 02/05/20 24 02/05/2024 HEMOG LOBIN A1C hemoglobin A1C 5.2 % 0-5.6 The [employer] n recom mends that a prima ry goal of thera py radha d be a HBA1C of < 7% and that physi cians shoul d reeva luate the treat ment regim en in patie nts with HBA1C value s consi stent ly > 8%. <5.7% Samantha l 5.7 - 6.4% Incre ased risk for diabe josé miguel >=6.5 % Diagn ostic of diabe josé miguel <7.0% Goal of thera py >8.0% Actio n sugge sted Not Available [facility] (Lab) [address], [place], [address], 02/11/2024 19:14:34 02/05/20 24 02/05/2024 TESTO STERO NE, FREE( DIALY SIS) AND TOTAL (LC/M S/MS) testosterone , total 17 NG/dL 2-45 For addit ional conchis gruber refer to http: //dana aguero.que stdia gnost ics.c om/fa q/ Total Testo stero neLCM SMSFA Q165 (This link is being provi ded for infor aurarayray nal/ educa sang l purpo ses only. ) This test was devel oped and its allen tical perfo rmanc e albert cteri stics have been deter mined by [employer] [place], [place]. It has not been clear ed or appro lele by the U.S. Food and Drug Admin istra tion. This assay has been valid ated pursu ant to the CLIA regul ation s and is used for clini dc purpo ses. Not Available [facility] (Lab) [address], [place], [address], 02/11/2024 19:14:34 02/05/20 24 02/05/2024 TESTO STERO NE, FREE( DIALY SIS) AND TOTAL (LC/M S/MS) testosterone , free 1.5 pg/mL 0.1-6. 4 This test was devel oped and its allen tical perfo rmanc e albert cteri stics have been deter mined by [employer] [facility] [facility] [place] [place]. It has not been clear ed or appro lele by the U.S. Food and Drug Admin istra tion. This assay has been valid ated pursu ant to the CLIA regul ation s and is used for clini dc purpo ses. Perfo rming Organ izati on [facility]: Site ID: [id number] Name: [facility] [employer] James [facility] Insti tute Addre ss: [id number] [employer] [place], [place] Direc tor: Fouzia Chase MD PhD Not Available [facility] (Lab) [address] , [place], [address], 02/11/2024 19:14:34 02/05/20 24 02/05/2024 17-OH PROGE STERO NE 17-hydroxypr ogesterone, lc/MS/MS 112 NG/dL Adult Femal e Refer ence Range s for 17-Hy droxy proge stero ne: Pre-M enopa usal Mid Folli cular : 23-10 2 ng/dL Pre-M enopa usal Surge : 67-34 9 ng/dL Pre-M enopa usal Mid Lutea l: 139-4 31 ng/dL Postm enopa usal Phase : < or = 45 ng/dL Pregn gracie: First Trime ster: 78-45 7 ng/dL Secon d Trime ster: 90-35 7 ng/dL Third Trime ster: 144-5 78 ng/dL This test was devel oped and its allen tical perfo rmanc e albert cteri stics have been deter mined by [employer]. It has not been clear ed or appro lele by FDA. This assay has been valid ated pursu ant to the CLIA regul ation s and is used for clini dc purpo ses. Perfo rming Organ izati on Infor matio n: Site ID: EZ Name: [employer]/Dajuan [facility] , Addre ss: [id number] [facility] [place] [address] Direc tor: Nedra delgadillo MD,Ph D,ALEM Not Available [facility] (Lab) [address], [place], [address], 02/11/2024 19:14:35 12/26/19 24 12/26/2023 US, pelvi s No observ ation record ed. [email or web address] [facility] [address], [place], [address], 12/26/2023 14:44:24 12/26/19 24 12/26/2023 US, trans vagin al No observ ation record ed. [email or web address] [facility] [address], [place], [address], 12/26/2023 14:44:16 12/26/19 24 12/26/2023 US, pelvi s No observ ation record ed. [email or web address] [address], [place], [address], 12/26/2023 22:08:52 Result Notes None recorded. 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 a trachoma tis, lower genitour inary sites;Re corded Elsewher e: No Locat ion: [facility] S ource: EHR Superintendent Meter Tests dajuan: N Practi ce ID: [id number] Felix lable Time: 11:00:00 AM Not Available [facility] 0 18:12:43 Screenin g for malignan t neoplasm of cervix Completed 201005/15/2012 Screenin g for malignan t neoplasm s of the cervix;R ecorded Elsewher e: No Locat ion: [facility] S ource: EHR Superintendent Meter Tests dajuan: N Practi ce ID: [id number] Felix lable Time: 01:00:00 PM Jolene patterson [facility] 3 12:02:30 Speciali zed medical examinat ion Completed 201005/15/2012 Gynecolo gical Examinat ion;Tae rded Elsewher e: No Locat ion: [facility] S ource: EHR Superintendent Meter Tests dajuan: N Practi ce ID: 0001 Felix lable Time: 01:00:00 PM Jolene patterson [facility] 3 12:02:41 Problem Notes None recorded. Procedures Surgical History Date Name Laterality Status Provider Name and Address Organization Details Recorded Time 023 IUD Removal completed Re Paez CNM [address], [place], [address], [place] [facility] 10/24/2022 12:46:16 023 Date of Last Pap Smear completed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 Complications Tubal Sterilization Discharge Date Comments 8 Discharge Information Feeding Method Contraceptive Method Maternal HG B and HCT Levels Ob Episode Information Episode Created Date Number of Fetuses Patient Bloodtype Patient rh Status Prepregnancy Weight lbs Domestic Partner Domestic Partner Phone Father Name Director Of Business Continuity Status 11/30/19 23 1 CLOSED Fetus Data First Name Last Name Admitted to NICU Weight (g) Sex Living Outcome Pediatric Complications Fetus ID Race Codes Race Delivery Type , Spontane ous [id number] Rickey Calculation Initial Rickey Date Initial Exam Date Initial Exam Provider Initial Ultrasound Date Last Menstrual Period Date Ultra Sound Weeks Gestation 0 Eighteen To Twenty Week Rickey Update Ultra Sound Date Fundal Height At Umbil Quickening Date Ultra Sound Latest Weeks Gestation Final Rickey Confirmed By Final Rickey Confirmed Date Final Rickey Date Ultra Sound Latest Days Gestation 0 0 Menstrual History Last Menstrual Date Menses Monthly On Bcp Conception Prior Menses Frequency Hcg Plus Date Menarche Onset Age Delivery Information Delivery Date Delivery Type Labor Anesthesia Weeks Gestation Incision Type Labor Labor Length Hrs Delivered By Post Complications Tubal Sterilization Discharge Date Comments 3 Discharge Information Feeding Method Contraceptive Method Maternal HG B and HCT Levels Ob Episode Information Episode Created Date Number of Fetuses Patient Bloodtype Patient rh Status Prepregnancy Weight lbs Domestic Partner Domestic Partner Phone Father Name Director Of Business Continuity Status 08/29/20 22 1 CLOSED Fetus Data First Name Last Name Admitted to NICU Weight (g) Sex Living Outcome Pediatric Complications Fetus ID Race Codes Race Delivery Type 3656.85 8704 F Full Term 59425 Vaginal Delivery Rickey Calculation Initial Rickey Date Initial Exam Date Initial Exam Provider Initial Ultrasound Date Last Menstrual Period Date Ultra Sound Weeks Gestation 0 Eighteen To Twenty Week Rickey Update Ultra Sound Date Fundal Height At Umbil Quickening Date Ultra Sound Latest Weeks Gestation Final Rickey Confirmed By Final Rickey Confirmed Date Final Rickey Date Ultra Sound Latest Days Gestation 0 0 Menstrual History Last Menstrual Date Menses Monthly On Bcp Conception Prior Menses Frequency Hcg Plus Date Menarche Onset Age Delivery Information Delivery Date Delivery Type Labor Anesthesia Weeks Gestation Incision Type Labor Labor Length Hrs Delivered By Post Complications Tubal Sterilization Discharge Date Comments 9 40 Discharge Information Feeding Method Contraceptive Method Maternal HG B and HCT Levels Ob Episode Information Episode Created Date Number of Fetuses Patient Bloodtype Patient rh Status Prepregnancy Weight lbs Domestic Partner Domestic Partner Phone Father Name Director Of Business Continuity Status 08/29/20 22 1 CLOSED Fetus Data First Name Last Name Admitted to NICU Weight (g) Sex Living Outcome Pediatric Complications Fetus ID Race Codes Race Delivery Type 3373.36 3704 M Full Term 26584 Vaginal Delivery Rickey Calculation Initial Rickey Date Initial Exam Date Initial Exam Provider Initial Ultrasound Date Last Menstrual Period Date Ultra Sound Weeks Gestation 0 Eighteen To Twenty Week Rickey Update Ultra Sound Date Fundal Height At Umbil Quickening Date Ultra Sound Latest Weeks Gestation Final Rickey Confirmed By Final Rickey Confirmed Date Final Rickey Date Ultra Sound Latest Days Gestation 0 0 Menstrual History Last Menstrual Date Menses Monthly On Bcp Conception Prior Menses Frequency Hcg Plus Date Menarche Onset Age Delivery Information Delivery Date Delivery Type Labor Anesthesia Weeks Gestation Incision Type Labor Labor Length Hrs Delivered By Post Complications Tubal Sterilization Discharge Date Comments 6 42 Discharge Information Feeding Method Contraceptive Method Maternal HG B and HCT Levels Ob Episode Information Episode Created Date Number of Fetuses Patient Bloodtype Patient rh Status Prepregnancy Weight lbs Domestic Partner Domestic Partner Phone Father Name Director Of Business Continuity Status 08/29/20 22 1 CLOSED Fetus Data First Name Last Name Admitted to NICU Weight (g) Sex Living Outcome Pediatric Complications Fetus ID Race Codes Race Delivery Type 3656.85 8704 F Full Term 37269 Vaginal Delivery Rickey Calculation Initial Rickey Date Initial Exam Date Initial Exam Provider Initial Ultrasound Date Last Menstrual Period Date Ultra Sound Weeks Gestation 0 Eighteen To Twenty Week Rickey Update Ultra Sound Date Fundal Height At Umbil Quickening Date Ultra Sound Latest Weeks Gestation Final Rickey Confirmed By Final Rickey Confirmed Date Final Rickey Date Ultra Sound Latest Days Gestation 0 0 Menstrual History Last Menstrual Date Menses Monthly On Bcp Conception Prior Menses Frequency Hcg Plus Date Menarche Onset Age Delivery Information Delivery Date Delivery Type Labor Anesthesia Weeks Gestation Incision Type Labor Labor Length Hrs Delivered By Post Complications Tubal Sterilization Discharge Date Comments 2 40 Discharge Information Feeding Method Contraceptive Method Maternal HG B and HCT Levels Ob Episode Information Episode Created Date Number of Fetuses Patient Bloodtype Patient rh Status Prepregnancy Weight lbs Domestic Partner Domestic Partner Phone Father Name Director Of Business Continuity Status 11/30/19 23 1 CLOSED Fetus Data First Name Last Name Admitted to NICU Weight (g) Sex Living Outcome Pediatric Complications Fetus ID Race Codes Race Delivery Type 3486.76 1704 F Full Term 15052 Vaginal Delivery Rickey Calculation Initial Rickey Date Initial Exam Date Initial Exam Provider Initial Ultrasound Date Last Menstrual Period Date Ultra Sound Weeks Gestation 0 Eighteen To Twenty Week Rickey Update Ultra Sound Date Fundal Height At Umbil Quickening Date Ultra Sound Latest Weeks Gestation Final Rickey Confirmed By Final Rickey Confirmed Date Final Rickey Date Ultra Sound Latest Days Gestation 0 0 Menstrual History Last Menstrual Date Menses Monthly On Bcp Conception Prior Menses Frequency Hcg Plus Date Menarche Onset Age Delivery Information Delivery Date Delivery Type Labor Anesthesia Weeks Gestation Incision Type Labor Labor Length Hrs Delivered By Post Complications Tubal Sterilization Discharge Date Comments 5 Discharge Information Feeding Method Contraceptive Method Maternal HG B and HCT Levels
--- OUTSIDE RECORDS SUMMARY | 2024-11-11 15:35 | XMS_ITS | Clinical Summary ---
Author Organization [facility] Address [address] [facility] [place] [address] Phone Care Team Providers Care Commercial Lease Administrator Name Role Phone Berta Davenport MD Primary Care Provider [phone] Social History Tobacco Use Types Packs/Day Years Used Date Smoking Tobacco: Never Assessed Comments Unknown Sex and Gender Information Value Date Recorded Sex Assigned at Not on file Legal Sex Female 9:53 PM CDT Gender Identity Not on file Sexual Orientation Not on file Plan of Treatment Health Maintenance Due Date Last Done Comments Hepatitis C Virus (HCV) Screening 1977 TdaP Immunization 1977 Hepatitis B Immunization (1 of 3 - 19+ 3-dose series) 01/29/1996 Pap Smear 1998 Cervical Cancer Screening (CCS) 2007 HPV/Cotest 2007 Discussion re Starting/Frequ ency of Mammograms 2017 Colonoscopy 2022 Colorectal Cancer Screening 2022 Influenza Immunization (#1) 2024 SARS-COV-2 Immunization ( season) 2024 Respiratory Syncytial Virus (RSV) Immunization (Adult) (1 - 1-dose 75+ series) 01/29/2052 Meningococcal Immunization (ACWY) Aged Out No longer eligible based on patient's age to complete this topic Pneumococcal Immunization Combined Aged Out No longer eligible based on patient's age to complete this topic Rotavirus Immunization Aged Out No lo nger eligible based on patient's age to complete this topic Insurance on file Care Teams Commercial Lease Administrator Relationship Specialty Start Date End Date Berta Davenport MD [facility] [place] [address] PCP - General Liquor Commissioner 02/29/16
--- OUTSIDE RECORDS SUMMARY | 2024-11-11 15:35 | XMS_ITS | Encounter Summary ---
Author Organization [facility] Address [address] [place] [address] Care Team Providers Care Boring Machine Set Up Operator Name Role Phone Berta Davenport MD Primary Care Provider [phone] Reason for Visit * Reason Onset Date Comments Forms 02/28/2024 Encounter Details Date Type Department Care Team (Late st Contact Info) Description 02/28/2024 Telephone [facility] - Centralized Scheduling [address] [place] [address] Rafal Patricio MD [facility] [place] [address] Forms Social History Tobacco Use Types Packs/Day Years Used Date Smoking Tobacco: Never Smokeless Tobacco: Never Alcohol Use Standard Drinks/Week Comments No 0 (1 standard drink = 0.6 oz pur e alcohol) Sex and Gender Information Value Date Recorded Sex Assigned at Female 02/09/2022 10:50 AM CDT Gender Identity Female 02/09/2022 10:50 AM CDT Sexual Orientation Straight 02/09/2022 10 :50 AM CDT documented as of this encounter Miscellaneous Notes * Telephone Encounter - Qian Maldonado - 02/28/2024 9:14 AM CDT Jeovany Gomez And prior auth rep from [facility] is calling regarding Mrs. Billingsley's upcomming appointment on 03/01. States that she has a request for the patients MRI. Please call the [facility] to expedite to case for Saturday so she can get the MRI. Callback Number: [phone] documented in this encounter Plan of Treatment Upcoming Encounters Date Type Department Care Team (Late st Contact Info) Description 03/01/2025 1:00 PM CDT Office Visit [facility] - Endocrinology [address] [place] [address], [place] [address] Rafal Patricio MD [address] [place] [address] [place] [address] documented as of this encounter Visit Diagnoses Not on filedocumented in this encounter Care Teams Boring Machine Set Up Operator Relationship Specialty Start Date End Date Berta Davenport MD [facility] [place] [address] PCP - General 12/27/16 documented as of this encounter
--- OUTSIDE RECORDS SUMMARY | 2024-11-11 15:35 | XMS_ITS | Clinical Summary ---
Author Organization [facility] Address [facility] [place] [address] Care Team Providers Care Flight Coordinator Name Role Phone Chandana Lin MD Primary Care Provider + [phone] Allergies Active Allergy Reactions Criticality Noted Date Comments Buspirone Other (see comment),Palpitations,Un known Low 11/21/2023 Codeine Anaphylaxis,Hives,Ot her (see comment),Palpitations,Un known High 07/29/2011 Ibuprofen Other (see comment) 10/03/2023 wheezing Latex Hives 10/03/2023 Levothyroxine Other (see comment),Unknown Medium 07/13/2015 Per Ms. Pena, allergic to Levothyroxine. ALLERGIC TO FILLERS AND /OR DYE IN TABLETS , CAN ONLY TAKE TIROSINT Per Ms. Pena, allergic to Levothyroxine. Per Ms. Pena, allergic to Levothyroxine. ALLERGIC TO FILLERS AND /OR DYE IN TABLETS , CAN ONLY TAKE TIROSINT Per Ms. Pena, allergic to Levothyroxine. Per Ms. Pena, allergic to Levothyroxine. ALLERGIC TO FILLERS AND /OR DYE IN TABLETS , CAN ONLY TAKE TIROSINT Per Ms. Pena, allergic to Levothyroxine. Per Ms. Pena, allergic to Levothyroxine. ALLERGIC TO FILLERS AND /OR DYE IN TABLETS , CAN ONLY TAKE TIROSINT Per Ms. Pena, allergic to Levothyroxine. Per Ms. Pena, allergic to Levothyroxine. ALLERGIC TO FILLERS AND /OR DYE IN TABLETS , CAN ONLY TAKE TIROSINT Per Ms. Pena, allergic to Levothyroxine. Per Ms. Pena, allergic to Levothyroxine. ALLERGIC TO FILLERS AND /OR DYE IN TABLETS , CAN ONLY TAKE TIROSINT Nitrofurantoin Rash Low 11/01/2024 Prednisone Rash Low 10/03/2023 Tramadol Other (see comment),Palpitations,Un known Medium 08/08/2021 States can't function Medications ALPRAZolam (XANAX) 0.25 MG tablet TAKE 1 TABLET BY MOUTH TWICE DAILY NEEDED FOR PANIC ATTACKS Active QUEtiapine (SEROQUEL) 25 MG tablet Take 1 tablet (25 mg total) by mouth nightly at bedtime. 10/05/19 Active traZODone (DESYREL) Tab 25 mg (50 mg split tab) Take 1 split tab (25 mg total) by mouth nightly at bedtime. 025 Discontinued FLUoxetine (PROZAC) 10 MG tablet Take 1 tablet (10 mg total) by mouth daily. 025 Discontinued cephALEXin (KEFLEX) 500 MG capsule Take 1 capsule (500 mg total) by mouth 2 (two) times daily for 7 days. 14 capsule 11/01/19 25 025 Discontinued fluconazole (DIFLUCAN) 150 MG tablet Take 1 tablet (150 mg total) by mouth once for 1 dose. 1 tablet 11/01/19 25 025 Discontinued(Re order) cephALEXin (KEFLEX) 500 MG capsule Take 1 capsule (500 mg total) by mouth 2 (two) times daily for 7 days. 14 capsule 11/02/19 25 025 fluconazole (DIFLUCAN) 150 MG tablet Take 1 tablet (150 mg total) by mouth once for 1 dose. 1 tablet 11/02/19 25 025 Encounters Date Type Department Care Team Description 11/01/2024 4:31 PM PUBLIC ADMINISTRATION PROFESSOR - 11/01/2024 6:53 PM [facility] Emergency [facility] Emergency Room [id number] [place] [id number] [address] Terrazas DO Flank Pain Discharge Disposition: Home or Self Care (Routine Discharge) 11/01/2024 Travel from Last 3 Months Social History Tobacco Use Types Packs/Day Years Used Date Smoking Tobacco: Never Smokeless Tobacco: Never Tobacco Cessation:Counseling Given: Not Answered Alcohol Use Standard Drinks/Week Comments Never 0 (1 standard drink = 0.6 oz pur e alcohol) Comments Unknown Sex and Gender Information Value Date Recorded Sex Assigned at Female 11/01/2024 4:07 PM PUBLIC ADMINISTRATION PROFESSOR Legal Sex Female 4:48 PM CDT Gender Identity Not on file Sexual Orientation Not on file Last Filed Vital Signs Vital Sign Reading Time Taken Comments Blood Pressure 117/81 11/01/2024 6:51 PM PUBLIC ADMINISTRATION PROFESSOR Pulse 96 11/01/2024 6:51 PM PUBLIC ADMINISTRATION PROFESSOR Temperature 38.1 C (100.5 F) 11/01/2024 4:42 PM PUBLIC ADMINISTRATION PROFESSOR Respiratory Rate 16 11/01/2024 6:51 PM PUBLIC ADMINISTRATION PROFESSOR Oxygen Saturation 99% 11/01/2024 6:51 PM PUBLIC ADMINISTRATION PROFESSOR Inhaled Oxygen Concentration - - Weight 63.5 kg (139 lb 15.9 oz) 11/01/2024 4:42 PM PUBLIC ADMINISTRATION PROFESSOR Height 167.6 cm (5' 6 ) 11/01/2024 4:42 PM PUBLIC ADMINISTRATION PROFESSOR Body Mass Index 22.6 11/01/2024 4:42 PM PUBLIC ADMINISTRATION PROFESSOR Plan of Treatment Health Maintenance Due Date Last Done Comments Cervical Cancer Screening Pa p Smear (Age 30 to 64) Every 3 Years 1977 Colorectal Cancer Screening Colonoscopy (10 Years) 1977 Annual Physical 01/29/1980 Hepatitis C 1995 DTaP, Tdap and Td Vaccines ( 1 - Tdap) 01/29/1996 Hepatitis B Vaccines (1 of 3 - 19+ 3-dose series) 01/29/1996 Cervical Cancer Screening Pa p with HPV Testing (Age 30 to 64) Every 5 Years 2007 Cervical Cancer Screening with HPV 2007 Mammogram Screening 2017 COVID-19 Vaccine (2023-2 5 season) 2024 Influenza Adult (#1) 2024 Meningococcal B Vaccine Aged Out No l onger eligible based on patient's age to complete this topic Meningococcal Vaccine Aged Out No mercy faustina eligible based on patient's age to complete this topic Pneumococcal Vaccine: Pediat rics (0 to 5 Years) and At-Risk Patients (6 to 64 Years) Aged Out No longer eligible b ased on patient's age to complete this topic RSV Immunizations Under 20 Months Aged Out No longer eligible based on patient's age to complete this topic Procedures Procedure Name Priority Date/Time Associated Diagnosis Comments CT ABD+PEL W CON STAT 11/01/2024 5:59 PM PUBLIC ADMINISTRATION PROFESSOR URINE BACTERIA CULTURE STAT 4:50 PM PUBLIC ADMINISTRATION PROFESSOR COMPREHENSIVE METABOLIC PANEL STAT 11/01/2024 4:50 PM PUBLIC ADMINISTRATION PROFESSOR LIPASE STAT 11/01/2024 4:50 PM PUBLIC ADMINISTRATION PROFESSOR TEST URINE STAT 11/01/2024 4:46 PM PUBLIC ADMINISTRATION PROFESSOR URINALYSIS, AUTO, COMPLETE STAT 11/01/2024 4:46 PM PUBLIC ADMINISTRATION PROFESSOR from Last 3 Months Results * CT ABD+PEL W IV CON ONLY (11/01/2024 5:59 PM PUBLIC ADMINISTRATION PROFESSOR) Anatomical Region Laterality Modality Abdomen Computed Tomogra phy 11/01/2024 6:14 PM PUBLIC ADMINISTRATION PROFESSOR Impressions 11/01/2024 6:20 PM PUBLIC ADMINISTRATION PROFESSOR IMPRESSION: 1. Thickening of the urinary bladder wall which is nonspecific but can be seen with cystitis. 2. Mild right pelviectasis and ureterectasis without hydronephrosis. There is also urothelial enhancement without significant periureteral inflammatory stranding. This is nonspecific but could be suggestive of early ascending urinary tract infection. No definite imaging evidence of pyelonephritis at this time. 3. Multifocal renal cysts with one measuring about 1.2 cm in the midpole of the right kidney being indeterminate. MR renal protocol is recommended for further characterization after resolution of patient's acute medical episode. 4. Nonobstructing stone in the right kidney measuring 4 mm. 5. Partially visualized possible irregular soft tissue thickening involving the left breast subcutaneous tissues dermal surface. Correlation with physical examination and if necessary mammographic workup is recommended. Referred By: Interpreted By: Lukasz Amato MD, 11/01/2024 6:14 PM Narrative 11/01/2024 6:20 PM PUBLIC ADMINISTRATION PROFESSOR [facility] [address] [place] [address] EXAMINATION: CT ABDOMEN/PELVIS WITH CONTRAST INDICATION: Right flank pain and UTI. Mild lipase and bilirubin elevation. Reported history of nephrolithiasis. COMPARISON: None available. TECHNIQUE: Computed tomography of the abdomen, and pelvis was performed after administration of intravenous contrast, 75 mL of Isovue-370, without immediate complication, according to routine protocol. Radiation dose reduction technique(s) were used FINDINGS: Lower Chest: Lung bases are clear. No cardiomegaly or pericardial effusion. There is a possible irregular soft tissue thickening of the left breast involving the dermal surface. Upper abdominal organs: The liver, spleen, and pancreas are unremarkable. The gallbladder surgically absent. No biliary duct dilatation. The adrenal glands are unremarkable. There are bilateral renal cysts. One of these cysts in the midpole of the right kidney is indeterminate. There is a nonobstructing stone measuring about 4 mm in the right kidney. There is mild right pelviectasis and ureterectasis with urothelial enhancement. No definite obstructing stone is seen. No significant periureteral inflammatory stranding, however ascending urinary tract infection is not excluded. Vascular: The abdominal aorta is normal in caliber. Lymph nodes: No retroperitoneal, mesenteric, or inguinal lymphadenopathy. Gastrointestinal: No bowel obstruction or bowel wall thickening. The appendix is normal. Miscellaneous: No free intraperitoneal air or ascites. Pelvis: No free pelvic fluid. The urinary bladder is mildly thickened which could represent cystitis. The uterus and adnexa are unremarkable. MSK: No acute osseous abnormality or destructive bone lesions. There is a vertebral body hemangioma at T12. Procedure Note Lukasz Amato MD - 11/01/2024 [facility] [address] [place] [address] EXAMINATION: CT ABDOMEN/PELVIS WITH CONTRAST INDICATION: Right flank pain and UTI. Mild lipase and bilirubinelevation. Reported history of nephrolithiasis. COMPARISON: None available. TECHNIQUE: Computed tomography of the abdomen, and pelvis was performedafter administration of intravenous contrast, 75 mL of Isovue-370, withoutimmediate complication, according to routine protocol. Radiation dosereduction technique(s) were used FINDINGS: Lower Chest: Lung bases are clear. No cardiomegaly or pericardialeffusion. There is a possible irregular soft tissue thickening of theleft breast involving the dermal surface. Upper abdominal organs: The liver, spleen, and pancreas are unremarkable.The gallbladder surgically absent. No biliary duct dilatation. Theadrenal glands are unremarkable. There are bilateral renal cysts. One ofthese cysts in the midpole of the right kidney is indeterminate. There nasra nonobstructing stone measuring about 4 mm in the right kidney. There ismild right pelviectasis and ureterectasis with urothelial enhancement. Nodefinite obstructing stone is seen. No significant periureteralinflammatory stranding, however ascending urinary tract infection is notexcluded. Vascular: The abdominal aorta is normal in caliber. Lymph nodes: No retroperitoneal, mesenteric, or inguinallymphadenopathy. Gastrointestinal: No bowel obstruction or bowel wall thickening. Theappendix is normal. Miscellaneous: No free intraperitoneal air or ascites. Pelvis: No free pelvic fluid. The urinary bladder is mildly thickenedwhich could represent cystitis. The uterus and adnexa are unremarkable. MSK: No acute osseous abnormality or destructive bone lesions. There is avertebral body hemangioma at T12. IMPRESSION: 1. Thickening of the urinary bladder wall which is nonspecific but can beseen with cystitis. 2. Mild right pelviectasis and ureterectasis without hydronephrosis.There is also urothelial enhancement without significant periureteralinflammatory stranding. This is nonspecific but could be suggestive ofearly ascending urinary tract infection. No definite imaging evidence ofpyelonephritis at this time. 3. Multifocal renal cysts with one measuring about 1.2 cm in the midpoleof the right kidney being indeterminate. MR renal protocol is recommendedfor further characterization after resolution of patient's acute medicalepisode. 4. Nonobstructing stone in the right kidney measuring 4 mm. 5. Partially visualized possible irregular soft tissue thickeninginvolving the left breast subcutaneous tissues dermal surface.Correlation with physical examination and if necessary mammographic workupis recommended. Referred By: Interpreted By: Lukasz Amato MD, 11/01/2024 6:14 PM Hill Terrazas DO CT Final Result * (ABNORMAL) URINE BACTERIA CULTURE (11/01/2024 4:50 PM PUBLIC ADMINISTRATION PROFESSOR) SPEC DESCRIPTION URINE CLEAN CATCH 11/01/2024 5:34 PM PUBLIC ADMINISTRATION PROFESSOR [facility] SPECIAL REQUESTS NO SPECIAL REQUEST 11/01/2024 5:34 PM PUBLIC ADMINISTRATION PROFESSOR [facility] CULTURE RESULT >100,000 COL/ML ESCHERICHIA COLI (A) 11/04/2024 7:33 AM PUBLIC ADMINISTRATION PROFESSOR [facility] URINE SPECIMEN OBTAINED BY CLEAN CATCH PROCEDURE / Unknown 11/01/2024 4:50 PM PUBLIC ADMINISTRATION PROFESSOR 11/02/2024 2:55 AM PUBLIC ADMINISTRATION PROFESSOR Narrative Organism Antibiotic Method Susceptibility Escherichia coli AMPICILLIN KARINA (VITEK) <=2: Sensitive Escherichia coli AMPICILLIN/SULBACTAM KARINA (VITEK) <=2: Sensitive Escherichia coli CEFTRIAXONE KARINA (VITEK) <=1: Sensitive Escherichia coli CEFTAZIDIME KARINA (VITEK) <=1: Sensitive Escherichia coli CEFAZOLIN KARINA (VITEK) <=4: Sensitive Escherichia coli ESBL KARINA (VITEK) NEG: Sensitive Escherichia coli NITROFURANTOIN KARINA (VITEK) <=16: Sensitive Escherichia coli GENTAMICIN KARINA (VITEK) <=1: Sensitive Escherichia coli LEVOFLOXACIN KARINA (VITEK) <=0.12: Sensitive Escherichia coli PIPRACIL/TAZO KARINA (VITEK) <=4: Sensitive Escherichia coli TRIMETH-SULFAMETH. KARINA (VITEK) <=20: Sensitive us Hill Terrazas DO MICROBIOLOGY - GENERAL ORDERAB LES Final Result [facility] [address] [place] [address], [place] [phone] [facility] [address] [place] [address], [place] [phone] * (ABNORMAL) COMPREHENSIVE METABOLIC PANEL (11/01/2024 4:50 PM PUBLIC ADMINISTRATION PROFESSOR) GLUCOSE 121(H) 70 - 99 MG/DL 11/01/2024 5:18 PM PUBLIC ADMINISTRATION PROFESSOR [facility] BUN 19(H) 7 - 18 MG/DL 11/01/2024 5:18 PM [facility] CREATININE S/P/B 0.79 0.55 - 1.02 MG/DL 11/01/2024 5:18 PM [facility] SODIUM S/P/B 139 136 - 145 MMOL/L 11/01/2024 5:18 PM [facility] POTASSIUM S/P/B 3.8 3.5 - 5.1 MMOL/L 11/01/2024 5:18 PM [facility] CHLORIDE S/P/B 102 100 - 108 MMOL/L 11/01/2024 5:18 PM [facility] CO2 25.3 21 - 32 MMOL/L 11/01/2024 5:18 PM [facility] CALCIUM S/P/B 9.2 8.5 - 10.1 MG/DL 11/01/2024 5:18 PM [facility] BILIRUBIN TOTAL S/P/B 2.0(H) 0.2 - 1.2 MG/DL 11/01/2024 5:18 PM [facility] TOTAL PROTEIN S/P/B 7.2 6.4 - 8.2 G/DL 11/01/2024 5:18 PM [facility] ALBUMIN S/P/B 3.6 3.4 - 5.0 G/DL 11/01/2024 5:18 PM [facility] AST 11(L) 15 - 37 U/L 11/01/2024 5:18 PM [facility] ALT 17 14 - 55 U/L 11/01/2024 5:18 PM [facility] ALKALINE PHOSPHATASE S/P/B 66 50 - 136 U/L 11/01/2024 5:18 PM [facility] ANION GAP 11.7 5 - 15 MMOL/L 11/01/2024 5:18 PM PUBLIC ADMINISTRATION PROFESSOR [facility] BUN CREATININE RATIO 24.1 6 - 26 11/01/2024 5:18 PM [facility] A/G RATIO 1.0 1.0 - 2.0 RATIO 11/01/2024 5:18 PM [facility] GFR ESTIMATE >90 >90 ML/MIN/1.7 3 M2 11/01/2024 5:18 PM [facility] Comment: NOTE: eGFR is not calculated for patients <18 years of age. This is an estimated GFR calculation using the new CKD EPI creatinine equation without race and so does not require a correction factor for race. This estimated GFR should not be used for calculating drug doses. 11/01/2024 4:50 PM PUBLIC ADMINISTRATION PROFESSOR [facility] Final Result Performing Organization Address City/[facility]/ZIP Co de Phone Number [facility] [address] [place] [address], [place] [phone] * (ABNORMAL) LIPASE (11/01/2024 4:50 PM PUBLIC ADMINISTRATION PROFESSOR) Pathologist [facility] LIPASE 89(H) 16 - 77 UNITS/L 11/01/2024 5:18 PM PUBLIC ADMINISTRATION PROFESSOR [facility] 11/01/2024 4:50 PM PUBLIC ADMINISTRATION PROFESSOR [facility] Final Result Performing Organization Address [facility]/ZIP Co de Phone Number [facility] [address] [place] [address], [place] [phone] * TEST URINE (11/01/2024 4:46 PM PUBLIC ADMINISTRATION PROFESSOR) URINE HCG TEST NEGATIVE NEGATIVE 11/01/2024 4:53 PM PUBLIC ADMINISTRATION PROFESSOR [facility] Comment: VERY DILUTE URINE SPECIMENS MAY NOT CONTAIN PLATE SHEAR OPERATOR LEVELS OF HCG. IF IS STILL SUSPECTED, A SERUM HCG TEST IS RECOMMENDED. URINE SPECIMEN FROM URETHRA / Unknown 11/01/2024 4:46 PM PUBLIC ADMINISTRATION PROFESSOR us Hill Terrazas DO URINE ORDERABLES Final Result [facility] [address] [place] [address], [place] [phone] * (ABNORMAL) URINALYSIS, AUTO, COMPLETE (11/01/2024 4:46 PM PUBLIC ADMINISTRATION PROFESSOR) COLOR (U) YELLOW 11/01/2024 5:24 PM PUBLIC ADMINISTRATION PROFESSOR [facility] TRANSPARENCY CLEAR 11/01/2024 5:24 PM [facility] SPECIFIC GRAVITY (U) 1.015 1.000 - 1.030 11/01/2024 5:24 PM [facility] U PH 6.5 5.0 - 9.0 11/01/2024 5:24 PM [facility] LEUKOCYTES (U) 2+(A) NEGATIVE 11/01/2024 5:24 PM [facility] NITRITES POSITIVE(A) NEGATIVE 11/01/2024 5:24 PM [facility] PROTEIN RANDOM (U) 1+(A) NEGATIVE 11/01/2024 5:24 PM [facility] GLUCOSE (U) NEGATIVE NEGATIVE 11/01/2024 5:24 PM [facility] KETONES MG/DL (U) NEGATIVE NEGATIVE 11/01/2024 5:24 PM [facility] BILIRUBIN (U) NEGATIVE NEGATIVE 11/01/2024 5:24 PM [facility] BLOOD (U) 3+(A) NEGATIVE 11/01/2024 5:24 PM [facility] WBC/HPF 10-25 0 - 5 /HPF 11/01/2024 5:24 PM PUBLIC ADMINISTRATION PROFESSOR [facility] RBC/HPF 10-25 0 - 5 /HPF 11/01/2024 5:24 PM PUBLIC ADMINISTRATION PROFESSOR [facility] EPI/HPF FEW /HPF 11/01/2024 5:24 PM PUBLIC ADMINISTRATION PROFESSOR [facility] BACTERIA (U) FEW /HPF 11/01/2024 5:24 PM PUBLIC ADMINISTRATION PROFESSOR [facility] URINE SPECIMEN OBTAINED BY CLEAN CATCH PROCEDURE / Unknown 11/01/2024 4:46 PM PUBLIC ADMINISTRATION PROFESSOR Hill Terrazas DO URINE ORDERABLES Final Result [facility] [address] [place] [id number], [place] [phone] from Last 3 Months Insurance [facility] MEDICAID Advance Directives Documents on File Type Date Recorded Patient Scruff Worker Expl anation Legal Documents 03/09/2021 7:47 AM [employer] attorneys at law. med records reqstd Legal Documents 03/07/2021 11:02 AM DASHA Balderrama [employer] ATT[employer]NEYS AT [employer].-NEED MED RECORDS. Care Teams Flight Coordinator Relationship Specialty Start Date End Date Chandana Lin MD [address] [place] [address] PCP - General INTERNAL MEDICINE 11/01/24
--- OUTSIDE RECORDS SUMMARY | 2024-11-11 15:35 | XMS_ITS | Referral Summary ---
Author Organization [facility] Address [address] [place] [address] Care Team Providers Care Loom Starter Name Role Phone Neil Amaral MD Primary Care Provider [phone] Allergies Active Allergy Reactions Criticality Noted Date Comments Buspirone Other (See comments) Low 11/21/2023 Codeine Anaphylaxis,Hives,O ther (See comments) High 07/29/2011 Ibuprofen Other (See comments) Medium 07/29/2011 Breathing problems Breathing problems wheezing Latex Hives,Other (See comments) Medium 07/29/2011 Skin gets red and itchy and gaytan and if it is near her face she gets short of breath Levothyroxine Other (See comments),Unknown Medium 07/13/2015 Per Ms. 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 Breathing problems Breathing problems Tramadol Other (See comments) Medium 08/08/2021 States can't function Medications cholecalciferol (VITAMIN D-3) 5,000 unit capsule Take 5,000 Units by mouth 3 (three) times a week Active propranoloL (INDERAL) 20 mg tablet Take 0.5 tablets (10 mg total) by mouth 2 (two) times a day 30 tablet 5 2 Active ergocalciferol (VITAMIN D) 50,000 unit capsule Vitamin D2 Active carisoprodoL (SOMA) 250 mg tablet every 8 hours Active levothyroxine (Synthroid) 50 mcg tablet Take 1 tablet (50 mcg total) by mouth archival records clerk before breakfast 90 tablet 2 2 Active ergocalciferol, vitamin D2, (VITAMIN D2 ORAL) Vitamin D2 4 Active baclofen (LIORESAL) 10 mg tablet Take 10 mg by mouth 3 (three) times a day Active ALPRAZolam (XANAX) 0.25 mg tablet alprazolam 0.25 mg tablet TK 1 T PO D PRF ANXIETY. Active FLUoxetine 10 mg tablet Take 1 tablet/capsule (10 mg total) by mouth daily Active suvorexant (BELSOMRA) 10 mg tabletIndicatio ns:Primary insomnia Take 1 tablet (10 mg total) by mouth nightly for 7 doses 7 tablet 4 Active gabapentin (NEURONTIN) 300 mg capsule Take 1 capsule (300 mg total) by mouth 3 (three) times a day for 15 days For post-herpetic neuralgia: Take 1 tablet on day 1, Then take 2 tablets on day 2, Then take 3 tablets on day 3 and every day after that as instructed by your doctor. 45 capsule [address] (PROTONIX) 40 mg EC tablet Take 1 tablet (40 mg total) by mouth daily for 15 days 15 tablet 4 Active Active Problems Problem Noted Date Diagnosed Date LENY (obstructive sleep apnea) 11/21/2023 Assessment & Plan (11/28/2023 11:16 AM RENAL NURSE): The patient is awaiting arrival of her auto titrating CPAP unit with a range of 5-15 cm water pressure. Assessment & Plan (11/21/2023 1:36 PM RENAL NURSE): The patient did recently have a nocturnal polysomnogram that was positive for LENY. An auto titrating CPAP unit at 5-15 cm water pressure has been ordered. She will follow up here in 6 weeks. Primary insomnia 10/21/2023 Assessment & Plan (11/28/2023 11:17 AM RENAL NURSE): I did inform the patient that I could not order Xanax for her today because it would be dangerous for her to use this medication and not be wearing her CPAP unit. She will follow up here in 2 weeks and if she is compliant with CPAP therapy, I would consider giving her Xanax at that time. Assessment & Plan (11/21/2023 1:36 PM RENAL NURSE): The patient has a reactive insomnia following a traumatic event in August 2023. She is trying to practice cognitive behavioral therapy and is under the care of a psychiatrist. I did tell her that I could not order the Ativan at this time because her sleep apnea is not being treated. Assessment & Plan (10/21/2023 1:42 PM RENAL NURSE): The patient had a precipitating event for her insomnia on 08 September 2024. She has seeing a psychiatrist and has been instructed to cognitive behavioral therapy. I did recommend that she start exercising again and also practice sleep restriction and I requested that she stay up until midnight-1:00 a.m. prior to attempting to sleep. I will also give her 7 doses of Belsomra 10 mg to try 1 at bedtime p.r.n. insomnia. I have also given her to brochures that her published by the [place] [employer] regarding insomnia and good sleep hygiene. She will follow up here in 1 month. Postoperative hypothyroidism 02/13/2022 Assessment & Plan (02/13/2022 4:48 PM CDT): I explained to the patient with a [...] to normalize TSH and continue levothyroxine replacement. Resolved Problems Problem Noted Date Diagnosed Date Resolved Date Hyperparathyroidism (CMS/HCC) 07/14/2013 02/13/2022 Social History Tobacco Use Types Packs/Day Years Used Date Smoking Tobacco: Never Smokeless Tobacco: Never Tobacco Cessation:Counseling Given: Not Answered AUDIT-C Answer Date Recorded Q1: How often do you have a drink containing alc ohol? Never 02/05/2022 Average Number of Drinks Not on file 022 Frequency of Binge Drinking Not on file 01/21 PHQ-2 Answer Date Recorded PHQ-2 Total Score (If total score is 3 or more points, staff should administer the PHQ-9) 0 02/13/2022 Hunger Vital Sign Answer Date Recorded Within the past 12 months, y ou worried that your food would run out before you got the money to buy more. Never true 11/14/19 23 Within the past 12 months, t he food you bought just didn't last and you didn't have money to get more. Never true 11/14/2022 Personal Safety Answer Date Recorded Have you ever been in or are you currently in a harmful physical or emotional relationship or is someone making you feel afraid or unsafe? Denies 10/27/2023 Comments Unknown Sex and Gender Information Value Date Recorded Sex Assigned at Not on file Legal Sex Female 12:07 AM RENAL NURSE Gender Identity Female 02/13/2022 6:35 AM CDT Sexual Orientation Straight 02/13/2022 6: 35 AM CDT Last Filed Vital Signs Vital Sign Reading Time Taken Comments Blood Pressure 116/82 02/27/2024 9:59 AM CDT Pulse 79 02/27/2024 9:59 AM CDT Temperature 36.2 C (97.2 F) 11/28/2023 10:52 AM RENAL NURSE Respiratory Rate 18 11/28/2023 10:52 AM RENAL NURSE Oxygen Saturation 94% 11/28/2023 10:52 AM RENAL NURSE Inhaled Oxygen Concentration - - Weight 67.6 kg (149 lb) 02/27/2024 9:59 AM CDT Height 167.6 cm (5' 6 ) 11/28/2023 10:52 AM RENAL NURSE Body Mass Index 24.05 11/28/2023 10:52 AM RENAL NURSE Plan of Treatment Not on file Insurance Care Teams Loom Starter Relationship Specialty Start Date End Date Neil Amaral MD [address] [address] PCP - General Family Medicine 03/20/24
--- OUTSIDE RECORDS SUMMARY | 2024-11-11 15:35 | XMS_ITS | Encounter Summary ---
Author Organization [facility] Address [address] [place] [address] Care Team Providers Care Golf Course Mechanic Name Role Phone Unknown, Notinfsekou Primary Care Provider Unavail able Lloyd Vera MD Primary Care Provider [phone] Caterina Mansfield NP Primary Care Provider + Neil Amaral MD Primary Care Provider Encounter Details Date Type Department Care Team (Late st Contact Info) Description 04/11/2020 Telephone [facility] [address] [facility] 4th Floor [address] [place] [address] Eden Bernstein RN Social History Tobacco Use Types Packs/Day Years Used Date Smoking Tobacco: Never Comments Unknown Sex and Gender Information Value Date Recorded Sex Assigned at Not on file Legal Sex Female 12:07 AM QA DEVELOPER Gender Identity Female 02/13/2022 6:35 AM CDT Sexual Orientation Straight 02/13/2022 6: 35 AM CDT documented as of this encounter Plan of Treatment Not on file documented as of this encounter Visit Diagnoses Not on filedocumented in this encounter Additional Health Concerns Infection Onset Date Last Indicated Resolved Time COVID: Suspected 10/27/2023 10/27/2023 10/27/2023 3:13 PM QA DEVELOPER documented as of this encounter Care Teams Golf Course Mechanic Relationship Specialty Start Date End Date Unknown, Eric PCP - General 04/11/20 06/04/21 Lloyd Vera MD [address] [place] [address] [place] [address] PCP - General Family Medicine 06/05/21 01/02/22 Caterina Mansfield NP [address] [place] [place] [address] PCP - General Nurse Practitioner 01/03/22 03/19/24 Neil Amaral MD [address] [id number] PCP - General Family Medicine 03/20/24 documented as of this encounter
--- OUTSIDE RECORDS SUMMARY | 2024-11-11 15:35 | XMS_ITS | Clinical Summary ---
Author Organization [email or web address] Address [address] [place] [address] Care Team Providers Care Pad Assembler Name Role Phone Berta Davenport MD Primary Care Provider [phone] Source Comments [email or web address],non-owned Affiliates and Associated Physician Practices is amultiple site organization consisting of ambulatory clinics and hospital sitesin [place], [place], [place] and [place]. This disclosure is being madepursuant to the Care Everywhere program and may not contain all information available regarding this patient. Last updated 18.[email or web address] Allergies Active Allergy Reactions Criticality Noted Date [...] (BMI) of 30.0-30.9 in adult 10/11/2017 07/10/2018 Family History Medical History Relation Name Comments Kidney Disease Brother Cancer Father Hypertension Father Diabetes Maternal Aunt 1 Cancer Maternal Aunt 2 Elevated Lipids Maternal Aunt 3 Hypertension Maternal Aunt 4 None Known Maternal Grandfather Elevated Lipids Maternal Grandmother Hypertension Maternal Grandmother Diabetes Maternal Uncle 1 Cancer Maternal Uncle 2 Kidney Disease Maternal Uncle 3 Elevated Lipids Maternal Uncle 4 Hypertension Maternal Uncle 5 Cancer Mother Diabetes Mother Hypertension Mother Kidney Disease Mother Other Mother PITUITARY Thyroid Disease Mother hypothyroid Diabetes Other cousins Status: Alive Elevated Lipids Other cousins Hypertension Other cousins None Known Paternal Grandfather None Known Paternal Grandmother Kidney Disease Sister Alcohol abuse Neg Hx Asthma Neg Hx Dementia Neg Hx Depression Neg Hx Drug Abuse Neg Hx Glaucoma Neg Hx Gout Neg Hx Leukemia Neg Hx Migraine Neg Hx Multiple Sclerosis Neg Hx Relation Name Status Comments Brother Father Maternal Aunt 1 Maternal Aunt 2 Maternal Aunt 3 Maternal Aunt 4 Maternal Grandfather Maternal Grandmother Maternal Uncle 1 Maternal Uncle 2 Maternal Uncle 3 Maternal Uncle 4 Maternal Uncle 5 Mother Other cousins Paternal Grandfather Paternal Grandmother Sister Social History Tobacco Use Types Packs/Day Years [...] Office Visit [facility] - Endocrinology [address] [place] [address], [place] [address] Rafal Patricio MD [address] [place] [address] [place] [address] Health Maintenance Due Date Last Done Comments COLOGUARD (AGES 45-75) - COL ON CA SCREENING 1977 COLON MONITORING 1977 COLONOSCOPY - COLON CA SCREENING 1977 CT COLONOGRAPHY - COLON CA SCREENING 1977 Colorectal Cancer Screening 1977 FIT - COLON CA SCREENING 1977 FLEX SIG - COLON CA SCREENING 1977 LIPID TESTING 1977 MAMMOGRAM 1977 PAP SMEAR 1977 HIV SCREENING 01/29/1992 HEPATITIS C SCREENING 01/24/1995 DTAP/TDAP/TD VACCINES (1 - Tdap) 01/29/1996 HEPATITIS B VACCINE (1 of 3 - 19+ 3-dose series) 01/29/1996 COVID-19 VACCINE ( - 2023-2 5 season) 2024 INFLUENZA VACCINE (#1) 2024 DEPRESSION SCREENING 09/23/2024 ZOSTER VACCINE (1 of 2) 2027 HIB VACCINE Aged Out No longer eligi ble based on patient's age to complete this topic HPV VACCINE Aged Out No longer eligi ble based on patient's age to complete this topic MENINGOCOCCAL (Group B) VACCINE Aged Out No longer eligible based on patient's age to complete this topic MENINGOCOCCAL VACCINE Aged Out No [facility] eligible based on patient's age to complete this topic PNEUMOCOCCAL VACCINE Aged Out No long er eligible based on patient's age to complete this topic Care Teams Pad Assembler Relationship Specialty Start Date End Date Berta Davenport MD [facility] [place] [address] PCP - General 12/27/16
--- OUTSIDE RECORDS SUMMARY | 2024-11-11 15:35 | XMS_ITS | Clinical Summary ---
Author Organization [facility] Address [address] [place] [address] Care Team Providers Care Parts Identifier Name Role Phone Neil Amaral MD Primary Care Provider [phone] Allergies Active Allergy Reactions Criticality Noted Date [...] Per Ms. Pena, allergic to Levothyroxine. Per MsIlana Pena, allergic to Levothyroxine. ALLERGIC TO FILLERS AND /OR DYE IN TABLETS , CAN ONLY TAKE TIROSINT Per Ms. Pena, allergic to Levothyroxine. Per MsIlana Pena, allergic to Levothyroxine. ALLERGIC TO FILLERS [...] 1 tablet (50 mcg total) by mouth transfer car operator drier before breakfast 90 tablet 2 2 Active [...] 11/21/2023 Assessment & Plan (11/28/2023 11:16 AM CIGAR TOBACCO PROCESSING SUPERVISOR): The patient is awaiting arrival of her auto titrating CPAP unit with a range of 5-15 cm water pressure. Assessment & Plan (11/21/2023 1:36 PM CIGAR TOBACCO PROCESSING SUPERVISOR): The patient did recently have a nocturnal polysomnogram that was positive for LEYN. An auto titrating CPAP unit at 5-15 cm water pressure has been ordered. She will follow up here in 6 weeks. Primary insomnia 10/21/2023 Assessment & Plan (11/28/2023 11:17 AM CIGAR TOBACCO PROCESSING SUPERVISOR): I did inform the patient that I could not order Xanax for her today because it would be dangerous for her to use this medication and not be wearing her CPAP unit. She will follow up here in 2 weeks and if she is compliant with CPAP therapy, I would consider giving her Xanax at that time. Assessment & Plan (11/21/2023 1:36 PM CIGAR TOBACCO PROCESSING SUPERVISOR): The patient has a reactive insomnia following a traumatic event in August 2023. She is trying to practice cognitive behavioral therapy and is under the care of a psychiatrist. I did tell her that I could not order the Ativan at this time because her sleep apnea is not being treated. Assessment & Plan (10/21/2023 1:42 PM CIGAR TOBACCO PROCESSING SUPERVISOR): The patient had a precipitating event for [...] to brochures that her published by the [place] [employer] regarding insomnia and [...] Date Resolved Date Hyperparathyroidism (CMS/HCC) 07/14/2013 02/13/2022 Surgical History Surgery Date Site/Laterality Comments THYROIDECTOMY GALLBLADDER SURGERY 09/23/1996 - 09/22/1997 Medical History Medical History Date Comments Thyroid cancer (HCC) Hyperparathyroidism (HCC) Spina bifida (HCC) Fibromyalgia Low back pain Anxiety Headache Neck pain Family History Medical History Relation Name Comments Colon cancer Father Adenocarcinoma of colon - (Added by TW Conv) Breast cancer Mother Adenocarcinoma of breast - (Added by TW Conv) Colon cancer Mother Adenocarcinoma of colon - (Added by TW Conv) Relation Name Status Comments Father Mother Social History Tobacco Use Types Packs/Day Years [...] on file Legal Sex Female 12:07 AM CIGAR TOBACCO PROCESSING SUPERVISOR Gender Identity Female 02/13/2022 6:35 AM CDT Sexual Orientation Straight 02/13/2022 6: 35 AM CDT Obstetrics History Last Filed Vital Signs Vital Sign Reading Time Taken Comments Blood Pressure 116/82 02/27/2024 9:59 AM CDT Pulse 79 02/27/2024 9:59 AM CDT Temperature 36.2 C (97.2 F) 11/28/2023 10:52 AM CIGAR TOBACCO PROCESSING SUPERVISOR Respiratory Rate 18 11/28/2023 10:52 AM CIGAR TOBACCO PROCESSING SUPERVISOR Oxygen Saturation 94% 11/28/2023 10:52 AM CIGAR TOBACCO PROCESSING SUPERVISOR Inhaled Oxygen Concentration - - Weight 67.6 kg (149 lb) 02/27/2024 9:59 AM CDT Height 167.6 cm (5' 6 ) 11/28/2023 10:52 AM CIGAR TOBACCO PROCESSING SUPERVISOR Body Mass Index 24.05 11/28/2023 10:52 AM CIGAR TOBACCO PROCESSING SUPERVISOR Plan of Treatment Health Maintenance Due Date Last Done Comments Breast Cancer Screening-Mammogram 1977 Cervical Cancer Screening 1977 Colon Cancer Screening-Colonoscopy 1977 Hepatitis C Screening 1977 DTaP/Tdap/Td Vaccine (1 - Tdap) 01/29/1988 Hepatitis B Screening 1995 Regular Well Visit/Exam 18-64 1995 Depression Screening 02/13/2023 02/13/2022 Influenza Vaccine (#1) 2024 Pneumococcal vaccine <65 Aged Out No longer eligible based on patient's age to complete this topic Insurance [facility] Care Teams Parts Identifier Relationship Specialty Start Date End Date Neil Amaral MD [address] [address] PCP - General Family Medicine 03/20/24
== END 2024-11-11 15:31 | disposition home or self-care (01) ==
LOC: ANHIMG 15:33
PROVIDERS: PCP Emergency Medicine; Visit Provider Emergency Medicine
DX: Z12.31 Encounter for screening mammogram for malignant neoplasm of breast (principal)
CPT/HCPCS: 77063; 77067

== ENCOUNTER 2024-11-18 14:10 | Outpatient (CLI) | payer OTHER, MEDICAID, SELFPAY ==
--- NOTE | ~2024-11-18 | US_ITS ---
EXAMINATION: US thyroid DATE: 11/18/2024 15:08 INDICATION: Disorder of thyroid, unspecified. TECHNIQUE: Multiple ultrasound images of the thyroid were obtained. COMPARISON: Ultrasound 03/07/2015 FINDINGS: The right thyroid lobe measures 1.1 x 1.0 x 2.2 cm. The left thyroid lobe measures 1.6 x 2.1 x 5.6 c m. In the right thyroid lobe, there is an 11 mm solid, hypoechoic, wider than tall nodule with manny h margin without echogenic foci (TI-RADS TR4). In the left thyroid lobe, there is a 2.0 cm mixed cyst ic and solid, isoechoic, wider than tall nodule of margin without echogenic foci (TR2). In the left t hyroid lobe, there is a 9 mm mixed cystic and solid, hypoechoic alignment and nodule with ill-defined margin without echogenic foci (TR3). IMPRESSION: 1. Thyroid nodules. Consider thyroid ultrasound in one year. Reviewed, dictated and finalized at location A. W HAT PLUNGER OPERATOR
--- NOTE | ~2024-11-18 | MR_ITS ---
EXAMINATION: MRA brain wo con DATE: 11/18/2024 15:11 INDICATION: Insomnia TECHNIQUE: Magnetic resonance angiography (MRA) of the brain was performed without intravenous contrast by the 3 D [id number]-[id number] technique. COMPARISON: None. FINDINGS: The left vertebral artery is dominant. There is normal flow related signal seen within the vertebral, basilar and internal carotid arteries. There is no proximal stenosis. There are no aneurysms ident ified. Both A1 and P1 segments are patent. The right P1 segment is diminutive with majority of flow to the right posterior cerebral artery supplied via the right internal carotid artery and a patent ri ght posterior commuting artery. There is also a diminutive left posterior communicating artery. Flow in the cerebral arteries is symmetric. IMPRESSION: 1. Unremarkable cerebral MR angiogram with no evident thrombosis, hemodynamically significant stenosi s or aneurysm. Reviewed, dictated and finalized at location B. RVISOR TYPE DISK QUALITY CONTROL IMPRESSION: 1. Unremarkable cerebral MR angiogram with no evident thrombosis, hemodynamical ly significant stenosis or aneurysm.
--- OUTSIDE RECORDS SUMMARY | 2024-11-18 16:13 | XMS_ITS | Clinical Summary ---
Author Organization [facility] Address [facility] [place] [address] Care Team Providers Care Furnace Clerk Name Role Phone Chandana Lin MD Primary Care Provider + [phone] Allergies Active Allergy Reactions Criticality Noted Date [...] Department Care Team Description 11/01/2024 4:31 PM WINDOWS INFRASTRUCTURE ENGINEER - 11/01/2024 6:53 PM [facility] Emergency [facility] Room [id number] [place] [id number] [address] Terrazas DO Flank Pain Discharge [...] Sex Assigned at Female 11/01/2024 4:07 PM WINDOWS INFRASTRUCTURE ENGINEER Legal Sex Female 4:48 PM CDT Gender Identity Not on file Sexual Orientation Not on file Last Filed Vital Signs Vital Sign Reading Time Taken Comments Blood Pressure 117/81 11/01/2024 6:51 PM WINDOWS INFRASTRUCTURE ENGINEER Pulse 96 11/01/2024 6:51 PM WINDOWS INFRASTRUCTURE ENGINEER Temperature 38.1 C (100.5 F) 11/01/2024 4:42 PM WINDOWS INFRASTRUCTURE ENGINEER Respiratory Rate 16 11/01/2024 6:51 PM WINDOWS INFRASTRUCTURE ENGINEER Oxygen Saturation 99% 11/01/2024 6:51 PM WINDOWS INFRASTRUCTURE ENGINEER Inhaled Oxygen Concentration - - Weight 63.5 kg (139 lb 15.9 oz) 11/01/2024 4:42 PM WINDOWS INFRASTRUCTURE ENGINEER Height 167.6 cm (5' 6 ) 11/01/2024 4:42 PM WINDOWS INFRASTRUCTURE ENGINEER Body Mass Index 22.6 11/01/2024 4:42 PM WINDOWS INFRASTRUCTURE ENGINEER Plan of Treatment Health Maintenance Due Date [...] ABD+PEL W CON STAT 11/01/2024 5:59 PM WINDOWS INFRASTRUCTURE ENGINEER URINE BACTERIA CULTURE STAT 4:50 PM WINDOWS INFRASTRUCTURE ENGINEER COMPREHENSIVE METABOLIC PANEL STAT 11/01/2024 4:50 PM WINDOWS INFRASTRUCTURE ENGINEER LIPASE STAT 11/01/2024 4:50 PM WINDOWS INFRASTRUCTURE ENGINEER TEST URINE STAT 11/01/2024 4:46 PM WINDOWS INFRASTRUCTURE ENGINEER URINALYSIS, AUTO, COMPLETE STAT 11/01/2024 4:46 PM WINDOWS INFRASTRUCTURE ENGINEER from Last 3 Months Results * CT ABD+PEL W IV CON ONLY (11/01/2024 5:59 PM WINDOWS INFRASTRUCTURE ENGINEER) Anatomical Region Laterality Modality Abdomen Computed Tomogra phy 11/01/2024 6:14 PM WINDOWS INFRASTRUCTURE ENGINEER Impressions 11/01/2024 6:20 PM WINDOWS INFRASTRUCTURE ENGINEER IMPRESSION: 1. Thickening of the urinary bladder [...] 11/01/2024 6:14 PM Narrative 11/01/2024 6:20 PM WINDOWS INFRASTRUCTURE ENGINEER [facility] [address] [place] [address] EXAMINATION: CT ABDOMEN/PELVIS WITH CONTRAST INDICATION: Right [...] Procedure Note Lukasz Amato MD - 11/01/2024 [facility] [address] [place] [address] EXAMINATION: CT ABDOMEN/PELVIS WITH CONTRAST INDICATION: Right [...] (ABNORMAL) URINE BACTERIA CULTURE (11/01/2024 4:50 PM WINDOWS INFRASTRUCTURE ENGINEER) SPEC DESCRIPTION URINE CLEAN CATCH 11/01/2024 5:34 PM WINDOWS INFRASTRUCTURE ENGINEER [facility] SPECIAL REQUESTS NO SPECIAL REQUEST 11/01/2024 5:34 PM WINDOWS INFRASTRUCTURE ENGINEER [facility] CULTURE RESULT >100,000 COL/ML ESCHERICHIA COLI (A) 11/04/2024 7:33 AM WINDOWS INFRASTRUCTURE ENGINEER [facility] URINE SPECIMEN OBTAINED BY CLEAN CATCH PROCEDURE / Unknown 11/01/2024 4:50 PM WINDOWS INFRASTRUCTURE ENGINEER 11/02/2024 2:55 AM WINDOWS INFRASTRUCTURE ENGINEER Narrative Organism Antibiotic Method Susceptibility Escherichia coli [...] MICROBIOLOGY - GENERAL ORDERAB LES Final Result [facility] [address] [place] [address], [place] [phone] [facility] [address] [place] [address], [place] [phone] * (ABNORMAL) COMPREHENSIVE METABOLIC PANEL (11/01/2024 4:50 PM WINDOWS INFRASTRUCTURE ENGINEER) GLUCOSE 121(H) 70 - 99 MG/DL 11/01/2024 5:18 PM WINDOWS INFRASTRUCTURE ENGINEER [facility] BUN 19(H) 7 - 18 MG/DL 11/01/2024 5:18 PM [facility] CREATININE S/P/B 0.79 0.55 - 1.02 MG/DL 11/01/2024 5:18 PM [facility] SODIUM S/P/B 139 136 - 145 MMOL/L 11/01/2024 5:18 PM [facility] POTASSIUM S/P/B 3.8 3.5 - 5.1 MMOL/L 11/01/2024 5:18 PM [facility] CHLORIDE S/P/B 102 100 - 108 MMOL/L 11/01/2024 5:18 PM [facility] CO2 25.3 21 - 32 MMOL/L 11/01/2024 5:18 PM [facility] CALCIUM S/P/B 9.2 8.5 - 10.1 MG/DL 11/01/2024 5:18 PM [facility] BILIRUBIN TOTAL S/P/B 2.0(H) 0.2 - 1.2 MG/DL 11/01/2024 5:18 PM [facility] TOTAL PROTEIN S/P/B 7.2 6.4 - 8.2 G/DL 11/01/2024 5:18 PM [facility] ALBUMIN S/P/B 3.6 3.4 - 5.0 G/DL 11/01/2024 5:18 PM [facility] AST 11(L) 15 - 37 U/L 11/01/2024 5:18 PM [facility] ALT 17 14 - 55 U/L 11/01/2024 5:18 PM [facility] ALKALINE PHOSPHATASE S/P/B 66 50 - 136 U/L 11/01/2024 5:18 PM [facility] ANION GAP 11.7 5 - 15 MMOL/L 11/01/2024 5:18 PM WINDOWS INFRASTRUCTURE ENGINEER [facility] BUN CREATININE RATIO 24.1 6 - 26 11/01/2024 5:18 PM [facility] A/G RATIO 1.0 1.0 - 2.0 RATIO 11/01/2024 5:18 PM [facility] GFR ESTIMATE >90 >90 ML/MIN/1.7 3 M2 11/01/2024 5:18 PM [facility] Comment: NOTE: eGFR is not calculated for patients <18 years of age. This is an estimated GFR calculation using the new CKD EPI creatinine equation without race and so does not require a correction factor for race. This estimated GFR should not be used for calculating drug doses. 11/01/2024 4:50 PM WINDOWS INFRASTRUCTURE ENGINEER [facility] Final Result Performing Organization Address City/[facility]/ZIP Co de Phone Number [facility] [address] [place] [address], [place] [phone] * (ABNORMAL) LIPASE (11/01/2024 4:50 PM WINDOWS INFRASTRUCTURE ENGINEER) Pathologist [facility] LIPASE 89(H) 16 - 77 UNITS/L 11/01/2024 5:18 PM WINDOWS INFRASTRUCTURE ENGINEER [facility] 11/01/2024 4:50 PM WINDOWS INFRASTRUCTURE ENGINEER [facility] Final Result Performing Organization Address [facility]/ZIP Co de Phone Number [facility] [address] [place] [address], [place] [phone] * TEST URINE (11/01/2024 4:46 PM WINDOWS INFRASTRUCTURE ENGINEER) URINE HCG TEST NEGATIVE NEGATIVE 11/01/2024 4:53 PM WINDOWS INFRASTRUCTURE ENGINEER [facility] Comment: VERY DILUTE URINE SPECIMENS MAY NOT CONTAIN ROUSTABOUT HEAD LEVELS OF HCG. IF IS STILL SUSPECTED, A SERUM HCG TEST IS RECOMMENDED. URINE SPECIMEN FROM URETHRA / Unknown 11/01/2024 4:46 PM WINDOWS INFRASTRUCTURE ENGINEER us Hill Terrazas DO URINE ORDERABLES Final Result [facility] [address] [place] [address], [place] [phone] * (ABNORMAL) URINALYSIS, AUTO, COMPLETE (11/01/2024 4:46 PM WINDOWS INFRASTRUCTURE ENGINEER) COLOR (U) YELLOW 11/01/2024 5:24 PM WINDOWS INFRASTRUCTURE ENGINEER [facility] TRANSPARENCY CLEAR 11/01/2024 5:24 PM [facility] SPECIFIC GRAVITY (U) 1.015 1.000 - 1.030 11/01/2024 5:24 PM [facility] U PH 6.5 5.0 - 9.0 11/01/2024 5:24 PM [facility] LEUKOCYTES (U) 2+(A) NEGATIVE 11/01/2024 5:24 PM [facility] NITRITES POSITIVE(A) NEGATIVE 11/01/2024 5:24 PM [facility] PROTEIN RANDOM (U) 1+(A) NEGATIVE 11/01/2024 5:24 PM [facility] GLUCOSE (U) NEGATIVE NEGATIVE 11/01/2024 5:24 PM [facility] KETONES MG/DL (U) NEGATIVE NEGATIVE 11/01/2024 5:24 PM [facility] BILIRUBIN (U) NEGATIVE NEGATIVE 11/01/2024 5:24 PM [facility] BLOOD (U) 3+(A) NEGATIVE 11/01/2024 5:24 PM [facility] WBC/HPF 10-25 0 - 5 /HPF 11/01/2024 5:24 PM WINDOWS INFRASTRUCTURE ENGINEER [facility] RBC/HPF 10-25 0 - 5 /HPF 11/01/2024 5:24 PM WINDOWS INFRASTRUCTURE ENGINEER [facility] EPI/HPF FEW /HPF 11/01/2024 5:24 PM WINDOWS INFRASTRUCTURE ENGINEER [facility] BACTERIA (U) FEW /HPF 11/01/2024 5:24 PM WINDOWS INFRASTRUCTURE ENGINEER [facility] URINE SPECIMEN OBTAINED BY CLEAN CATCH PROCEDURE / Unknown 11/01/2024 4:46 PM WINDOWS INFRASTRUCTURE ENGINEER Hill Terrazas DO URINE ORDERABLES Final Result [facility] [address] [place] [id number], [place] [phone] from Last 3 Months Insurance [facility] MEDICAID Advance Directives Documents on File Type Date Recorded Patient Non Clinical Advisor Expl anation Legal Documents 03/09/2021 7:47 AM [employer] attorneys at law. med records reqstd Legal Documents 03/07/2021 11:02 AM [employer] ATT[employer]NEYS AT [employer].-NEED MED RECORDS. Care Teams Furnace Clerk Relationship Specialty Start Date End Date Chandana Lin MD [address] [place] [address] PCP - General INTERNAL MEDICINE 11/01/24
--- OUTSIDE RECORDS SUMMARY | 2024-11-18 16:13 | XMS_ITS | Referral Summary ---
Author Organization [facility] Address [address] [place] [address] Care Team Providers Care Db2 Developer Name Role Phone Neil Amaral MD Primary Care Provider [phone] Allergies Active Allergy Reactions Criticality Noted Date [...] 1 tablet (50 mcg total) by mouth shrimp packer before breakfast 90 tablet 2 2 Active [...] 11/21/2023 Assessment & Plan (11/28/2023 11:16 AM SNACK BAR CASHIER): The patient is awaiting arrival of her auto titrating CPAP unit with a range of 5-15 cm water pressure. Assessment & Plan (11/21/2023 1:36 PM SNACK BAR CASHIER): The patient did recently have a nocturnal polysomnogram that was positive for LENY. An auto titrating CPAP unit at 5-15 cm water pressure has been ordered. She will follow up here in 6 weeks. Primary insomnia 10/21/2023 Assessment & Plan (11/28/2023 11:17 AM SNACK BAR CASHIER): I did inform the patient that I could not order Xanax for her today because it would be dangerous for her to use this medication and not be wearing her CPAP unit. She will follow up here in 2 weeks and if she is compliant with CPAP therapy, I would consider giving her Xanax at that time. 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 She is trying to practice cognitive behavioral therapy and is under the care of a psychiatrist. I did tell her that I could not order the Ativan at this time because her sleep apnea is not being treated. Assessment & Plan (10/21/2023 1:42 PM SNACK BAR CASHIER): The patient had a precipitating event for [...] to brochures that her published by the [employer] regarding insomnia and [...] on file Legal Sex Female 12:07 AM SNACK BAR CASHIER Gender Identity Female 02/13/2022 6:35 AM CDT Sexual Orientation Straight 02/13/2022 6: 35 AM CDT Last Filed Vital Signs Vital Sign Reading Time Taken Comments Blood Pressure 116/82 02/27/2024 9:59 AM CDT Pulse 79 02/27/2024 9:59 AM CDT Temperature 36.2 C (97.2 F) 11/28/2023 10:52 AM SNACK BAR CASHIER Respiratory Rate 18 11/28/2023 10:52 AM SNACK BAR CASHIER Oxygen Saturation 94% 11/28/2023 10:52 AM SNACK BAR CASHIER Inhaled Oxygen Concentration - - Weight 67.6 kg (149 lb) 02/27/2024 9:59 AM CDT Height 167.6 cm (5' 6 ) 11/28/2023 10:52 AM SNACK BAR CASHIER Body Mass Index 24.05 11/28/2023 10:52 AM SNACK BAR CASHIER Plan of Treatment Not on file Insurance Care Teams Db2 Developer Relationship Specialty Start Date End Date Neil Amaral MD [address] [address] PCP - General Family Medicine 03/20/24
--- OUTSIDE RECORDS SUMMARY | 2024-11-18 16:13 | XMS_ITS | Clinical Summary ---
Author Organization [facility] Address [address] [place] [address] Care Team Providers Care Retail Seasonal Specialist Name Role Phone Neil Amaral MD Primary Care Provider [phone] Allergies Active Allergy Reactions Criticality Noted Date [...] 1 tablet (50 mcg total) by mouth supervisor treating and pumping before breakfast 90 tablet 2 2 Active [...] 11/21/2023 Assessment & Plan (11/28/2023 11:16 AM PREPARATORY TECHNICIAN): The patient is awaiting arrival of her auto titrating CPAP unit with a range of 5-15 cm water pressure. Assessment & Plan (11/21/2023 1:36 PM PREPARATORY TECHNICIAN): The patient did recently have a nocturnal polysomnogram that was positive for LENY. An auto titrating CPAP unit at 5-15 cm water pressure has been ordered. She will follow up here in 6 weeks. Primary insomnia 10/21/2023 Assessment & Plan (11/28/2023 11:17 AM PREPARATORY TECHNICIAN): I did inform the patient that I could not order Xanax for her today because it would be dangerous for her to use this medication and not be wearing her CPAP unit. She will follow up here in 2 weeks and if she is compliant with CPAP therapy, I would consider giving her Xanax at that time. 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 She is trying to practice cognitive behavioral therapy and is under the care of a psychiatrist. I did tell her that I could not order the Ativan at this time because her sleep apnea is not being treated. Assessment & Plan (10/21/2023 1:42 PM PREPARATORY TECHNICIAN): The patient had a precipitating event for [...] to brochures that her published by the [place] [employer] regarding insomnia and [...] on file Legal Sex Female 12:07 AM PREPARATORY TECHNICIAN Gender Identity Female 02/13/2022 6:35 AM CDT Sexual Orientation Straight 02/13/2022 6: 35 AM CDT Obstetrics History Last Filed Vital Signs Vital Sign Reading Time Taken Comments Blood Pressure 116/82 02/27/2024 9:59 AM CDT Pulse 79 02/27/2024 9:59 AM CDT Temperature 36.2 C (97.2 F) 11/28/2023 10:52 AM PREPARATORY TECHNICIAN Respiratory Rate 18 11/28/2023 10:52 AM PREPARATORY TECHNICIAN Oxygen Saturation 94% 11/28/2023 10:52 AM PREPARATORY TECHNICIAN Inhaled Oxygen Concentration - - Weight 67.6 kg (149 lb) 02/27/2024 9:59 AM CDT Height 167.6 cm (5' 6 ) 11/28/2023 10:52 AM PREPARATORY TECHNICIAN Body Mass Index 24.05 11/28/2023 10:52 AM PREPARATORY TECHNICIAN Plan of Treatment Health Maintenance Due Date [...] patient's age to complete this topic Insurance [facility] Care Teams Retail Seasonal Specialist Relationship Specialty Start Date End Date Neil Amaral MD [address] [address] PCP - General Family Medicine 03/20/24
--- OUTSIDE RECORDS SUMMARY | 2024-11-18 16:13 | XMS_ITS | Data Portability ---
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 Lab iron + TIBC + ferritin, serum 2023 024 [facility] (Lab), [address], [place], [address], 4 13:06:02 vitamin B12, serum 2023 024 [facility] (Lab), [address], [place], [address], 4 13:06:03 TSH, serum or plasma 2023 024 [facility] (Lab), [address] [place], [address], 4 13:06:02 thyroglobul in Ab, serum 2023 024 [facility] (Lab), [address], [place], [address], 4 13:06:03 magnesium, RBC 2023 024 [facility] (Lab), [address], [place], [address], 4 13:06:04 calcium, serum or plasma 2023 024 [facility] (Lab), [address] [place], [address], 4 13:06:01 testosteron e free/testos terone total, ratio, serum 2023 024 [facility] (Lab), [address] [place], [address], 4 13:06:04 ca 125, serum 2023 024 [facility] (Lab), [address] [place], [address], 4 01:09:01 carcinoembr yonic Ag, quant, serum or plasma 2023 024 [facility] (Lab), [address], [place], [address], 4 01:09:02 cancer Ag 19-9, serum or plasma 2023 024 [facility] (Lab), [address], [place], [address], 4 01:09:03 testosteron e, free + total, serum 2023 024 [facility] (Lab), [address] [place], [address], 4 01:09:08 estradiol, serum 2023 024 [facility] (Lab), [address] [place], [address], 4 01:09:05 progesteron e, serum 2023 024 [facility] (Lab), [address], [place], [address], 4 01:09:06 lh + FSH, serum 2023 024 [facility] (Lab), [address] [place], [address], 4 01:09:06 TSH, serum or plasma 2023 024 [facility] (Lab), [address] [place], [address], 4 01:09:03 free T3, quantitativ e, dialysis serum or plasma 2023 024 [facility] (Lab), [address], [place], [address], 4 01:09:06 T4, free, serum 2023 024 [facility] (Lab), [address] [place], [address], 4 01:09:04 thyroid peroxidase (tpo) Ab, serum 2023 024 [facility] (Lab), [address] [place], [address], 4 01:09:04 HbA1c (hemoglobin A1c), blood 2023 024 [facility] (Lab), [address] [place], [address], 4 01:09:02 17-hydroxyp rogesterone , QN, serum 2023 024 [facility] (Lab), [address] [place], [address], 4 01:09:07 dhea-sulfat e, serum 2023 024 [facility] (Lab), [address] [facility], [place], [address], 4 01:09:01 PTH (parathyroi d hormone), intact + calcium, serum or plasma 2023 024 [facility] (Lab), [address] [facility], [place], [address], 4 01:09:05 vitamin D, 25-hydroxy, total, serum 2023 024 [facility] (Lab), [address] [facility], [place], [address], 4 01:09:07 CMP, serum or plasma 2023 024 [facility] (Lab), [address] [facility], [place], [address], 4 01:09:00 Referral None recorded. Procedures None recorded. Surgeries None recorded. Imaging US, pelvis [address], [address], [address], [place], [address], 4 20:03:55 US, transvagina l [address], [address], [address], [place], [address], 4 20:03:55 Medication Orders None recorded. Patient TargetsNo targets recorded. Patient InstructionsNo instructions recorded. Reason for Referral None Reported. Results Created Date Observation Date Name Description Value Unit Range Abnormal Flag Note LastModifiedBy Organization Detail LastModifiedTime 04/03/20 23 04/03/2023 CBC W/DIF F WBC 7.7 10'3/ uL 3.6-10 .2 Not Available [facility] (Lab) [address], [place], [address], 04/08/2023 15:05:34 04/03/20 23 04/03/2023 CBC W/DIF F RBC 5.05 10'6/ uL (based on docume nted legal sex) 4.10-5 .30 Not Available [facility] (Lab) [address], [place], [address], 04/08/2023 15:05:34 04/03/20 23 04/03/2023 CBC W/DIF F HGB 15.4 g/dL (based on docume nted legal sex) 11.9-1 5.8 Not Available [facility] (Lab) [address], [place], [address], 04/08/2023 15:05:34 04/03/20 23 04/03/2023 CBC W/DIF F HCT 49.4 % (based on docume nted legal sex) 37.4-4 8.3 high Not Available [facility] (Lab) [address], [place], [address], 04/08/2023 15:05:34 04/03/20 23 04/03/2023 CBC W/DIF F MCV 97.8 fL 82.0-9 9.0 Not Available [facility] (Lab) [address], [place], [address], 04/08/2023 15:05:34 04/03/20 23 04/03/2023 CBC W/DIF F MCH 30.5 pg 27.0-3 3.0 Not Available [facility] (Lab) [address] [place], [address], 04/08/2023 15:05:34 04/03/20 23 04/03/2023 CBC W/DIF F MCHC 31.2 g/dL 32.0-3 6.0 low Not Available [facility] (Lab) [address], [place], [address], 04/08/2023 15:05:34 04/03/20 23 04/03/2023 CBC W/DIF F RDW 13.4 % 11.0-1 5.0 Not Available [facility] (Lab) [address] [facility], [place], [address], 04/08/2023 15:05:34 04/03/20 23 04/03/2023 CBC W/DIF F plt 302 10'3/ uL 150-45 0 Not Available [facility] (Lab) [address] [facility], [place], [address], 04/08/2023 15:05:34 04/03/20 23 04/03/2023 CBC W/DIF F MPV 11.9 fL 9.8-12 .7 Not Available [facility] (Lab) [address] [facility], [place], [address], 04/08/2023 15:05:34 04/03/20 23 04/03/2023 CBC W/DIF F NRBC's 0.0 % 0 Not Available [facility] (Lab) [address] [facility], [place], [address], 04/08/2023 15:05:34 04/03/20 23 04/03/2023 CBC W/DIF F absolute NRBCs 0.0 10'3/ uL 0 Not Available [facility] (Lab) [address] [facility], [place], [address], 04/08/2023 15:05:34 04/03/20 23 04/03/2023 CBC W/DIF F neutrophils 68.4 % 37.0-7 2.0 Not Available [facility] (Lab) [address] [facility], [place], [address], 04/08/2023 15:05:34 04/03/20 23 04/03/2023 CBC W/DIF F lymphocytes 24.5 % 16.0-4 8.0 Not Available [facility] (Lab) [address] [facility], [place], [address], 04/08/2023 15:05:34 04/03/20 23 04/03/2023 CBC W/DIF F monocytes 5.3 % 4.0-14 .0 Not Available [facility] (Lab) [address] [facility], [place], [address], 04/08/2023 15:05:34 04/03/20 23 04/03/2023 CBC W/DIF F eosinophils 0.8 % 0.0-9. 0 Not Available [facility] (Lab) [address] [facility], [place], [address], 04/08/2023 15:05:34 04/03/20 23 04/03/2023 CBC W/DIF F basophils 0.6 % 0.0-2. 0 Not Available [facility] (Lab) [address] [facility], [place], [address], 04/08/2023 15:05:34 04/03/20 23 04/03/2023 CBC W/DIF F immature granulocytes 0.4 % no define d refere nce range Not Available [facility] (Lab) [address] [facility], [place], [address], 04/08/2023 15:05:34 04/03/20 23 04/03/2023 CBC W/DIF F absolute neutrophils 5.3 10'3/ uL 1.1-6. 0 Not Available [facility] (Lab) [address] [facility], [place], [address], 04/08/2023 15:05:34 04/03/20 23 04/03/2023 CBC W/DIF F absolute lymphocytes 1.9 10'3/ uL 0.7-3. 4 Not Available [facility] (Lab) [address] [facility], [place], [address], 04/08/2023 15:05:34 04/03/20 23 04/03/2023 CBC W/DIF F absolute monocytes 0.4 10'3/ uL 0.3-1. 0 Not Available [facility] (Lab) [address] [facility], [place], [address], 04/08/2023 15:05:34 04/03/20 23 04/03/2023 CBC W/DIF F absolute eosinophils 0.1 10'3/ uL 0.0-0. 6 Not Available [facility] (Lab) [address] [facility], [place], [address], 04/08/2023 15:05:34 04/03/20 23 04/03/2023 CBC W/DIF F absolute basophils 0.1 10'3/ uL 0.0-0. 1 Not Available [facility] (Lab) [address] [facility], [place], [address], 04/08/2023 15:05:34 04/03/20 23 04/03/2023 CBC W/DIF [...] resul ts are expec malick. Not Available [facility] (Lab) [address] [facility], [place], [address], 04/08/2023 15:05:34 04/03/20 23 04/03/2023 HEMOG LOBIN [...] >8.0% Actio n sugge sted Not Available [facility] (Lab) [address] [facility], [place], [address], 04/08/2023 15:05:35 04/03/20 23 04/03/2023 DHEA SULFA TE DHEA-sulfate 202 ug/dL Femal e Range s Age(y ) Range (ug/d L) 10-15 34-28 0 15-20 65-36 8 20-25 148-4 07 25-35 99-34 0 35-45 61-33 7 45-55 35-25 6 55-65 19-20 5 65-75 9-246 > 75 12-15 4 Not Available [facility] (Lab) [address] [facility], [place], [address], 04/08/2023 15:05:36 04/03/20 23 04/03/2023 LIPID PANEL ,AMA (LDL- CALC) total cholesterol 194 mg/dL 0-199 Not Available [facility] (Lab) [address] [facility], [place], [address], 04/08/2023 15:05:37 04/03/20 23 04/03/2023 LIPID PANEL ,AMA (LDL- CALC) triglyceride s 204 mg/dL 0.00-1 50.00 high NCEP Refer ence Value s for Trigl yceri don: Samantha l: <150 mg/dL Borde rline High: 150 - 199 mg/dL High: 200 - 499 mg/dL Very High: >/= 500 mg/dL Not Available [facility] (Lab) [address] [facility], [place], [address], 04/08/2023 15:05:37 04/03/20 23 04/03/2023 LIPID PANEL ,AMA (LDL- CALC) HDL cholesterol 52 mg/dL >40 Not Available [facility] (Lab) [address] [place], [address], 04/08/2023 15:05:37 04/03/20 04/03/2023 LIPID PANEL ,AMA [...] mg/dL , HDL <40 mg/dL Not Available [facility] (Lab) [address] [facility], [place], [address], 04/08/2023 15:05:37 04/03/2004/03/2023 LIPID PANEL ,AMA (LDL- CALC) non-HDL cholesterol 142 mg/dL no refere nce range A reaso nable goal for non-H DL stephania stero l is one that is 30 mg/dL highe r than the LDL stephania stero l goal. Not Available [facility] (Lab) [address] [facility], [place], [address], 04/08/2023 15:05:37 04/03/2004/03/2023 LIPID PANEL ,AMA (LDL- CALC) chol/HDL ratio 3.7 . 0.0-5. 0 On January 15, 2023, [facility] labor atori alexi hamilton ed the equat [...] astin g. Refer ences : - Mervin aMrt, Maynor Jaimes , Kayce camejo, Terell Erickson, [...] . - Beverley marie V, Medina J, Pooaj ar A, Solomon M, Tyesha e R, Shaista marie E, Jaida valle RS, Jem SR, Jody n SS. Fast ing Versu s Nonfa sting and Low-D ensit y Lipop rotei n Stephania stero l Accur acy. Circu latio n. 2017Sep 24;137 (1):1 0-19. Not Available [facility] (Lab) [address] [place], [address], 04/08/2023 15:05:37 04/03/20 23 04/03/2023 CMP(C OMPRE HENSI VE METAB OLIC PANEL ) sodium 143 mmol/ L 133-14 6 Not Available [facility] (Lab) [address] [place], [address], 04/08/2023 15:05:38 04/03/20 23 04/03/2023 CMP(C OMPRE HENSI VE METAB OLIC PANEL ) potassium 3.6 mmol/ L 3.5-5. 1 Not Available [facility] (Lab) [address] [place], [address], 04/08/2023 15:05:38 04/03/20 23 04/03/2023 CMP(C OMPRE HENSI VE METAB OLIC PANEL ) chloride 101 mmol/ L 98-107 Not Available [facility] (Lab) [address] [place], [address], 04/08/2023 15:05:38 04/03/20 23 04/03/2023 CMP(C OMPRE HENSI VE METAB OLIC PANEL ) carbon dioxide 29 mmol/ L 21-31 Not Available [facility] (Lab) [address] [facility], [place], [address], 04/08/2023 15:05:38 04/03/20 23 04/03/2023 CMP(C OMPRE HENSI VE METAB OLIC PANEL ) anion gap 13 mmol/ L 4-13 Not Available [facility] (Lab) [address] [facility], [place], [address], 04/08/2023 15:05:38 04/03/20 23 04/03/2023 CMP(C OMPRE HENSI VE METAB OLIC PANEL ) blood urea nitrogen 7 mg/dL 7-25 Not Available [facility] (Lab) [address] [facility], [place], [address], 04/08/2023 15:05:38 04/03/20 23 04/03/2023 CMP(C OMPRE HENSI VE METAB OLIC PANEL ) creatinine 0.72 mg/dL 0.60-1 .30 Not Available [facility] (Lab) [address] [facility], [place], [address], 04/08/2023 15:05:38 04/03/20 23 04/03/2023 CMP(C OMPRE HENSI VE METAB OLIC PANEL ) egfrcr (CKD-epi 2020) >90 mL/mi n/1.7 3_m2 >=60 Not Available [facility] (Lab) [address] [facility], [place], [address], 04/08/2023 15:05:38 04/03/20 23 04/03/2023 CMP(C OMPRE HENSI VE METAB OLIC PANEL ) calcium 10.3 mg/dL 8.3-10 .5 Not Available [facility] (Lab) [address] [facility], [place], [address], 04/08/2023 15:05:38 04/03/20 23 04/03/2023 CMP(C OMPRE HENSI VE METAB OLIC PANEL ) glucose 79 mg/dL 70-100 Not Available [facility] (Lab) [address] [facility], [place], [address], 04/08/2023 15:05:38 04/03/20 23 04/03/2023 CMP(C OMPRE HENSI VE METAB OLIC PANEL ) protein, total 7.6 g/dL 6.4-8. 3 Not Available [facility] (Lab) [address] [facility], [place], [address], 04/08/2023 15:05:38 04/03/20 23 04/03/2023 CMP(C OMPRE HENSI VE METAB OLIC PANEL ) albumin 4.9 g/dL 3.5-5. 0 Not Available [facility] (Lab) [address] [facility], [place], [address], 04/08/2023 15:05:38 04/03/20 23 04/03/2023 CMP(C OMPRE HENSI VE METAB OLIC PANEL ) ALT 38 units /L 9-43 Not Available [facility] (Lab) [address] [facility], [place], [address], 04/08/2023 15:05:38 04/03/20 23 04/03/2023 CMP(C OMPRE HENSI VE METAB OLIC PANEL ) alkaline phosphatase 73 units /L 34-104 Not Available [facility] (Lab) [address] [place], [address], 04/08/2023 15:05:38 04/03/20 23 04/03/2023 CMP(C OMPRE HENSI VE METAB OLIC PANEL ) AST 23 units /L 13-39 Not Available [facility] (Lab) [address] [place], [address], 04/08/2023 15:05:38 04/03/20 23 04/03/2023 CMP(C OMPRE HENSI VE METAB OLIC PANEL ) bilirubin, total 1.6 mg/dL 0.2-1. 2 high Not Available [facility] (Lab) [address] [facility], [place], [address], 04/08/2023 15:05:38 04/03/20 23 04/03/2023 TSH, REFLE X FREE T4 TSH 2.91 uIU/m L 0.30-5 .33 Not Available [facility] (Lab) [address] [place], [address], 04/08/2023 15:05:39 04/03/20 23 04/03/2023 HUMAN SEX HORMO NE ELSA NG GLOBU VENUS sex hormone binding globulin 52.7 nmole s/L 16.8-1 25.2 Not Available [facility] (Lab) [address] [place], [address], 04/08/2023 15:05:40 04/03/20 23 04/03/2023 ESTRA DIOL estradiol 317.0 pg/mL This assay was perfo rmed using [employer] ratio n reage nts and test kits. Value s obtai axel with other assay metho ds or kits canno t be used [facility] . Femal e Estra diol Range s: Folli cular phase 12.4- 233 pg/mL Ovula tion phase 41.0- 398 pg/mL Lutea l phase 22.3- 341 pg/mL Postm enopa usal< 5-138 pg/mL Healt hy Pregn ant Women 1st Trime ster1 54-32 43 pg/mL 2nd Trime ster1 561-2 1280 pg/mL 3rd Trime ster8 525-> 67303 pg/mL Not Available [facility] (Lab) [address] [place], [address], 04/08/2023 15:05:41 04/03/20 23 04/03/2023 PROGE STERO NE progesterone 1.46 NG/mL This assay was perfo rmed using [employer] reage nts and test kits. Value s obtai axel with other assay metho ds or kits canno t be used [facility] . Femal e Proge stero ne Range s: Folli cular phase 0.06- 0.89 ng/mL Ovula tion phase 0.12- 12.00 ng/mL Lutea l phase 1.83- 23.90 ng/mL Postm enopa usal< 0.05- 0.13 ng/mL Healt hy Pregn ant Women 1st Trime ster1 1.0-4 4.30 2nd Trime ster2 5.40- 83.30 3rd Trime ster5 8.70- 214.0 0 Not Available [facility] (Lab) [address] [facility], [place], [address], 04/08/2023 15:05:42 04/03/2004/03/2023 PROLA CTIN prolactin, total 11.80 NG/mL 4.79-2 3.30 This assay was perfo rmed using [employer] reage nts and test kits. Value s obtai axel with other assay metho ds or kits canno t be used [facility] . Not Available [facility] (Lab) [address] [facility], [place], [address], 04/08/2023 15:05:43 04/03/2004/03/2023 LH (LUTE NIZIN G HORMO NE) LH 31.0 mIU/m L This assay was perfo rmed using [employer] reage nts and test kits. Value s obtai axel with other assay metho ds or kits canno t be used [facility] . Femal es Mid-F ollic ular: 2.4-1 2.6 mIU/m L Mid-C ycle: 14.0- 95.6 mIU/m L Mid-L uteal : 1.0-1 1.4 mIU/m L Postm enopa use: 7.7-5 8.5 mIU/m L Not Available [facility] (Lab) [address] [place], [address], 04/08/2023 15:05:44 07/1204/03/2023 FSH FSH 6.8 mIU/m [...] use: 25.8- 134.8 mIU/m L Not Available [facility] (Lab) [address] [facility], [place], [address], 04/08/2023 15:05:45 04/03/20 23 04/03/2023 17-OH PROGE [...] Diagn ostic s [facility] [place] . It has not been clear ed or appro lele by FDA. This assay has been valid ated pursu ant to the CLIA regul ation s and is used for clini dc purpo ses. Perfo rming Organ izati on Infor mat n: Site ID: [id number] Name: [facility]/Dajuan kaya [facility]-S an Arsh Plattis tranrizwan , Addre ss: [id number] [facility] [place] [address] Dire tor: Nedra delgadillo MD,Ph D,ALEM Not Available [facility] (Lab) [address] [facility], [place], [address], 04/08/2023 15:05:46 04/03/20 23 04/03/2023 TESTO STERO NE, FREE( DIALY SIS) AND TOTAL (LC/M S/MS) testosterone , total 31 NG/dL 2-45 For addit ional infor conchis rosario e refer to http: //[facility] stdia gnost ics.c om/fa q/Tot alTalexi Banda [facility] (This link is being provi ded for infor debra moya/ educa sang l purpo ses only. ) This test was devel oped and its allen tical perfo rmanc e albert cteri stics have been deter mined by [employer] [facility] [facility]. It has not been clear ed or appro lele by the FDA. This assay has been valid ated pursu ant to the CLIA regul ation s and is used for clini dc purpo ses. Not Available [facility] (Lab) [address] [facility], [place], [address], 04/08/2023 15:05:47 04/03/20 23 04/03/2023 TESTO STERO NE, FREE( DIALY SIS) AND TOTAL (LC/M S/MS) testosterone , free 3.7 pg/mL 0.1-6. 4 This test was devel oped and its allen tical perfo rmanc e albert cteri stics have been deter mined by [facility] [employer] [facility]. It has not been clear ed or appro lele by the FDA. This assay has been valid ated pursu ant to the CLIA regul ation s and is used for clini dc purpo ses. Perfo rming Organ izati on Infor debra n: Site ID: [id number] Name: [facility] [employer] [facility]-[place] Addre ss: [id number] [place] [address] Dire tor: Maria C alvarez M.D. Not Available [facility] (Lab) [address] [facility], [place], [address], 04/08/2023 15:05:47 05/22/20 23 05/22/2023 LIPID PANEL ,AMA (LDL- CALC) total cholesterol 163 mg/dL 0-199 Not Available [facility] (Lab) [address] [facility], [place], [address], 05/23/2023 03:17:22 05/22/20 23 05/22/2023 LIPID PANEL ,AMA (LDL- CALC) triglyceride s 145 mg/dL 0.00-1 50.00 NCEP Refer ence Value s for Trigl yceri don: Samantha l: <150 mg/dL Borde rline High: 150 - 199 mg/dL High: 200 - 499 mg/dL Very High: >/= 500 mg/dL Not Available [facility] (Lab) [address] [place], [address], 05/23/2023 03:17:22 05/22/20 23 05/22/2023 LIPID PANEL ,AMA (LDL- CALC) HDL cholesterol 41 mg/dL >40 Not Available [facility] (Lab) [address] [place], [address], 05/23/2023 03:17:22 05/22/20 23 05/22/2023 LIPID PANEL [...] mg/dL , HDL <40 mg/dL Not Available [facility] (Lab) [address] [place], [address], 05/23/2023 03:17:22 05/22/20 23 05/22/2023 LIPID PANEL ,AMA (LDL- CALC) non-HDL cholesterol 122 mg/dL no refere nce range A reaso nable goal for non-H DL stephania stero l is one that is 30 mg/dL highe r than the LDL stephania stero l goal. Not Available [facility] (Lab) [address], [place], [address], 05/23/2023 03:17:22 05/22/2005/22/2023 LIPID PANEL ,AMA (LDL- CALC) chol/HDL ratio 4.0 . 0.0-5. 0 On January 15, 2023, [facility] labor atori alexi hamilton ed the equat ion for calcu latin g estim ated low-d ensit y lipop rotei n-cho leste rol (LDL- C) from the Fried james equat ion to the Jody n/Hop kins equat ion. This new equat ion is only valid for lipid panel s with trigl yceri dno < 400 mg/dL . Schuyleri es have [...] Jody aguero, Mervin Fall, Maynor Jaimes , [facility] juan carlos camejo, Terell Erickson, Terell byrne, [...] - Beverley marie V, Medina J, Pooja marie A, Solomon M, Tyesha guerra R, Shaista marie E, Jaida valle RS, Parish SR, Jody n SS. Fast ing Versu s Nonfa sting and Low-D ensit y Lipop rotei n Stephania stero l Accur acy. Circu tanya n. 2017Sep 24;137 (1):1 0-19. Not Available [facility] (Lab) [address] , [place], [address], 05/23/2023 03:17:22 05/22/20 23 05/22/2023 VITAM IN D, 25-OH (TOTA L D2/D3 ) vitamin D, 25-hydroxy, total 46.8 NG/mL 30.0-1 00.0 Sugge stive of Defic iency : <20 ng/mL Sugge stive of Insuf ficie ncy: 20-29 ng/mL Sugge stive of Suffi cienc y: 30-10 0 ng/mL Sugge stive of Toxic ity: >150 ng/mL Not Available [facility] (Lab) [address] , [place], [address], 05/23/2023 03:17:22 07/26/20 23 07/26/2023 JOY TIN / IRON / TRANS JOY N / TIBC iron 87 ug/dL 40-170 Not Available [facility] (Lab) [address], [place], [address], 07/27/2023 08:15:33 07/26/20 23 07/26/2023 JOY TIN / IRON / TRANS JOY N / TIBC transferrin 209 mg/dL 200-36 0 Not Available [facility] (Lab) [address], [place], [address], 07/27/2023 08:15:33 07/26/20 23 07/26/2023 JOY TIN / IRON / TRANS JOY N / TIBC ferritin 119.8 NG/mL 8.0-25 2.0 Not Available [facility] (Lab) [address], [place], [address], 07/27/2023 08:15:33 07/26/20 23 07/26/2023 JOY TIN / IRON / TRANS JOY N / TIBC TIBC 293 ug/dL 250-45 0 Not Available [facility] (Lab) [address] [facility], [place], [address], 07/27/2023 08:15:33 07/26/20 23 07/26/2023 JOY TIN / IRON / TRANS JOY N / TIBC iron saturation 30 % 20-55 Not Available [facility] (Lab) [address] [facility], [place], [address], 07/27/2023 08:15:33 07/26/20 23 07/26/2023 VITAM IN D, 25-OH (TOTA L D2/D3 ) vitamin D, 25-hydroxy, total 34.1 NG/mL 30.0-1 00.0 Sugge stive of Defic iency : <20 ng/mL Sugge stive of Insuf ficie ncy: 20-29 ng/mL Sugge stive of Suffi cienc y: 30-10 0 ng/mL Sugge stive of Toxic ity: >150 ng/mL Not Available [facility] (Lab) [address], [place], [address], 07/27/2023 08:15:34 08/08/20 23 08/08/2023 TESTO STERO NE, FREE( DIALY SIS) AND TOTAL (LC/M S/MS) testosterone , total 12 NG/dL 2-45 For addit ional infor conchis rosario e refer to http: //[facility] stdia gnost ics.c om/fa q/ Total Testo stero neLCM SMSFA Q165 (This link is being provi ded for infor debra moya/ maría dukes [place] ses only. ) This test was devel oped and its allen tical perfo rmanc e albert cteri stics have been deter mined by [facility], [place]. It has not been clear ed or appro lele by the U.[place]. Food and Drug Admin istra tion. This assay has been valid ated pursu ant to the CLIA regul ation s and is used for clini dc purpo ses. Not Available [facility] (Lab) [address], [place], [address], 08/16/2023 13:53:41 08/08/20 23 08/08/2023 TESTO STERO NE, FREE( DIALY SIS) AND TOTAL (LC/M S/MS) testosterone , free 1.6 pg/mL 0.1-6. 4 This test was devel oped and its allen tical perfo rmanc e albert cteri stics have been deter mined by [facility] [facility] [place]. It has not been clear ed or appro lele by the U.S. Food and Drug Admin istra tion. This assay has been valid ated pursu ant to the CLIA regul ation s and is used for clini dc purpo ses. Perfo rming Organ izati on Infor debra n: Site ID: AMD Name: [facility] [employer] ostgeoff s James horner [facility] shakeel Addre ss: [id number] [facility] [address] [place], [place] Direc tor: Fouzia Chase MD PhD Not Available [facility] (Lab) [address], [place], [address], 08/16/2023 13:53:41 10/11/19 24 10/11/2023 CORTSAMREEN PATEL M cortisol 8.7 ug/dL R-REF ERENC E RANGE S: A.M. : 6.70 - 22.60 ug/dL - P.M. : <10.0 0 ug/dL Not Available [facility] (Lab) [address], [place], [address], 10/12/2023 08:35:55 10/30/19 24 10/30/2023 CMP(C OMPRE HENSI VE METAB OLIC PANEL ) sodium 144 mmol/ L 133-14 6 Not Available [facility] (Lab) [address], [place], [address], 11/10/2023 01:09:00 10/30/19 24 10/30/2023 CMP(C OMPRE HENSI VE METAB OLIC PANEL ) potassium 3.8 mmol/ L 3.5-5. 1 Not Available [facility] (Lab) [address] [facility], [place], [address], 11/10/2023 01:09:00 10/30/19 24 10/30/2023 CMP(C OMPRE HENSI VE METAB OLIC PANEL ) chloride 103 mmol/ L 98-107 Not Available [facility] (Lab) [address] [facility], [place], [address], 11/10/2023 01:09:00 10/30/19 24 10/30/2023 CMP(C OMPRE HENSI VE METAB OLIC PANEL ) carbon dioxide 30 mmol/ L 21-31 Not Available [facility] (Lab) [address] [facility], [place], [address], 11/10/2023 01:09:00 10/30/19 24 10/30/2023 CMP(C OMPRE HENSI VE METAB OLIC PANEL ) anion gap 11 mmol/ L 4-13 Not Available [facility] (Lab) [address] [facility], [place], [address], 11/10/2023 01:09:00 10/30/19 24 10/30/2023 CMP(C OMPRE HENSI VE METAB OLIC PANEL ) blood urea nitrogen 11 mg/dL 7-25 Not Available [facility] (Lab) [address] [place], [address], 11/10/2023 01:09:00 10/30/19 24 10/30/2023 CMP(C OMPRE HENSI VE METAB OLIC PANEL ) creatinine 0.74 mg/dL 0.60-1 .30 Not Available [facility] (Lab) [address] [place], [address], 11/10/2023 01:09:00 10/30/19 24 10/30/2023 CMP(C OMPRE HENSI VE METAB OLIC PANEL ) egfrcr (CKD-epi 2020) >90 mL/mi n/1.7 3_m2 >=60 Not Available [facility] (Lab) [address] [facility], [place], [address], 11/10/2023 01:09:00 10/30/19 24 10/30/2023 CMP(C OMPRE HENSI VE METAB OLIC PANEL ) calcium 10.1 mg/dL 8.3-10 .5 Not Available [facility] (Lab) [address] [facility], [place], [address], 11/10/2023 01:09:00 10/30/19 24 10/30/2023 CMP(C OMPRE HENSI VE METAB OLIC PANEL ) glucose 71 mg/dL 70-100 Not Available [facility] (Lab) [address] [facility], [place], [address], 11/10/2023 01:09:00 10/30/19 24 10/30/2023 CMP(C OMPRE HENSI VE METAB OLIC PANEL ) protein, total 7.3 g/dL 6.4-8. 3 Not Available [facility] (Lab) [address] [facility], [place], [address], 11/10/2023 01:09:00 10/30/19 24 10/30/2023 CMP(C OMPRE HENSI VE METAB OLIC PANEL ) albumin 4.7 g/dL 3.5-5. 0 Not Available [facility] (Lab) [address] [facility], [place], [address], 11/10/2023 01:09:00 10/30/19 24 10/30/2023 CMP(C OMPRE HENSI VE METAB OLIC PANEL ) ALT 15 units /L 9-43 Not Available [facility] (Lab) [address] [place], [address], 11/10/2023 01:09:00 10/30/19 24 10/30/2023 CMP(C OMPRE HENSI VE METAB OLIC PANEL ) alkaline phosphatase 80 units /L 34-104 Not Available [facility] (Lab) [address] [place], [address], 11/10/2023 01:09:00 10/30/19 24 10/30/2023 CMP(C OMPRE HENSI VE METAB OLIC PANEL ) AST 12 units /L 13-39 low Not Available [facility] (Lab) [address] [place], [address], 11/10/2023 01:09:00 10/30/19 24 10/30/2023 CMP(C OMPRE HENSI VE METAB OLIC PANEL ) bilirubin, total 1.3 mg/dL 0.2-1. 2 high Not Available [facility] (Lab) [address] [facility], [place], [address], 11/10/2023 01:09:00 10/30/19 24 10/30/2023 CA 125 Ca 125 17.0 units /mL 0.0-35 .0 This assay was perfo rmed using [employer] Corpo ratio n reage nts and test kits. Value s obtai axel with other assay metho ds or kits canno t be used inter [facility] . Not Available [facility] (Lab) [address] [facility], [place], [address], 11/10/2023 01:09:01 10/30/19 24 10/30/2023 DHEA SULFA TE DHEA-sulfate 104 ug/dL Femal e Range s Age(y ) Range (ug/d L) 10-15 34-28 0 15-20 65-36 8 20-25 148-4 07 25-35 99-34 0 35-45 61-33 7 45-55 35-25 6 55-65 19-20 5 65-75 9-246 > 75 12-15 4 Not Available [facility] (Lab) [address] [place], [address], 11/10/2023 01:09:01 10/30/19 24 10/30/2023 CEA cea 1.0 NG/mL 0.0-3. 0 This assay was perfo rmed using [employer] Corpo ratio n reage nts and test kits. Value s obtai axel with other assay metho ds or kits canno t be used inter [facility] . Not Available [facility] (Lab) [address] [facility], [place], [address], 11/10/2023 01:09:02 10/30/19 24 10/30/2023 HEMOG LOBIN [...] >8.0% Actio n sugge sted Not Available [facility] (Lab) [address] [facility], [place], [address], 11/10/2023 01:09:02 10/30/19 24 10/30/2023 CARBO HYDRA TE ANTIG EN 19-9 Ca 19-9 7 U/mL 0-35 This assay was perfo rmed using [employer]po ratio n reage nts and test kits. Value s obtai axel with other assay metho ds or kits canno t be used inter [facility] . Not Available [facility] (Lab) [address] [facility], [place], [address], 11/10/2023 01:09:03 10/30/19 24 10/30/2023 TSH TSH 2.34 uIU/m L 0.30-5 .33 Not Available [facility] (Lab) [address] [facility], [place], [address], 11/10/2023 01:09:03 10/30/19 24 10/30/2023 T4 FREE T4, free 0.79 NG/dL 0.60-1 .40 This assay is susce ptibl e to inter isaias ce from high level s of bioti n which may false ly eleva te resul ts. Pleas e corre late with clini dc findi ngs. Not Available [facility] (Lab) [address] [place], [address], 11/10/2023 01:09:04 10/30/19 24 10/30/2023 TPO ANTIB MANN thyroperoxid ase antibodies 0.5 IU/mL 0.0-9. 0 Not Available [facility] (Lab) [address] [place], [address], 11/10/2023 01:09:04 10/30/19 24 10/30/2023 PTH WITH CALCI UM PTH, intact 47.3 pg/mL 12.0-8 8.0 Not Available [facility] (Lab) [address] [place], [address], 11/10/2023 01:09:05 10/30/19 24 10/30/2023 PTH WITH CALCI UM calcium 10.1 mg/dL 8.3-10 .5 Not Available [facility] (Lab) [address] [place], [address], 11/10/2023 01:09:05 10/30/19 24 10/30/2023 ESTRA DIOL [...] 561-2 1280 pg/mL 3rd Trime ster8 525-> 15625 pg/mL Not Available [facility] (Lab) [address] [facility], [place], [address], 11/10/2023 01:09:05 10/30/19 24 10/30/2023 PROGE STERO [...] Trime ster5 8.70- 214.0 0 Not Available [facility] (Lab) [address] [facility], [place], [address], 11/10/2023 01:09:05 10/30/19 24 10/30/2023 FREE T3 [...] LC/MS may be perfo rmed. Not Available [facility] (Lab) [address] [facility], [place], [address], 11/10/2023 01:09:06 10/30/19 24 10/30/2023 FSH / [...] use: 25.8- 134.8 mIU/m L Not Available [facility] (Lab) [address] [facility], [place], [address], 11/10/2023 01:09:06 10/30/19 24 10/30/2023 FSH / [...] use: 7.7-5 8.5 mIU/m L Not Available [facility] (Lab) [address] [facility], [place], [address], 11/10/2023 01:09:06 10/30/19 24 10/30/2023 VITAM IN D, 25-OH (TOTA L D2/D3 ) vitamin D, 25-hydroxy, total 50.0 NG/mL 30.0-1 00.0 Sugge stive of Defic iency : <20 ng/mL Sugge stive of Insuf ficie ncy: 20-29 ng/mL Sugge stive of Suffi cienc y: 30-10 0 ng/mL Sugge stive of Toxic ity: >150 ng/mL Not Available [facility] (Lab) [address] [place], [address], 11/10/2023 01:09:07 10/30/19 24 10/30/2023 17-OH PROGE [...] stics have been deter mined by [email or web address]. It has not been clear ed or appro lele by FDA. This assay has been valid ated pursu ant to the CLIA regul ation s and is used for clini dc purpo ses. Perfo rming Organ izati on Infor matio n: Site ID: EZ Name: [email or web address] [facility]/Dajuan kirkpatrick [facility] [place] , Addre ss: [id number] [facility] devan [facility] [place] [address] Dire tor: Nedra delgadillo MD,Ph D,ALEM Not Available [facility] (Lab) [address] [place], [address], 11/10/2023 01:09:07 10/30/1910/30/2023 TESTO STERO NE, FREE, DIREC T WITH TOTAL testosterone , serum <3 NG/dL 4-50 low Not Available [facility] (Lab) [address] [place], [address], 11/10/2023 01:09:08 10/30/19 24 10/30/2023 TESTO STERO NE, FREE, DIREC T WITH TOTAL free testosterone (direct) 0.3 pg/mL 0.0-4. 2 Perfo rmed at: 01 - Labnichelle Ortega n [address] [facility], [place] [address] Lab Direc tor: Sen sweet PhD, Phone : [phone] Perfo rmed at: 02 - Labco rp [place] [address] [facility] , [place] [address] Lab Direc tor: Alessandra sanders MD, Phone : [phone] Not Available [facility] (Lab) [address] , [place], [address], 11/10/2023 01:09:08 12/18/19 24 12/18/2023 CALCI UM, SERUM /PLAS MA calcium 9.8 mg/dL 8.3-10 .5 Not Available [facility] (Lab) [address], [place], [address], 12/24/2023 13:06:01 12/18/19 24 12/18/2023 TSH, REFLE X FREE T4 TSH 1.39 uIU/m L 0.30-5 .33 Not Available [facility] (Lab) [address], [place], [address], 12/24/2023 13:06:02 12/18/19 24 12/18/2023 JOY TIN / IRON / TRANS JOY N / TIBC iron 100 ug/dL 40-170 Not Available [facility] (Lab) [address] [place], [address], 12/24/2023 13:06:02 12/18/19 24 12/18/2023 JOY TIN / IRON / TRANS JOY N / TIBC transferrin 213 mg/dL 200-36 0 Not Available [facility] (Lab) [address] [facility], [place], [address], 12/24/2023 13:06:02 12/18/19 24 12/18/2023 JOY TIN / IRON / TRANS JOY N / TIBC ferritin 126.7 NG/mL 8.0-25 2.0 Not Available [facility] (Lab) [address] [place], [address], 12/24/2023 13:06:02 12/18/19 24 12/18/2023 JOY TIN / IRON / TRANS JOY N / TIBC TIBC 298 ug/dL 250-45 0 Not Available [facility] (Lab) [address] [facility], [place], [address], 12/24/2023 13:06:02 12/18/19 24 12/18/2023 JOY TIN / IRON / TRANS JOY N / TIBC iron saturation 34 % 20-55 Not Available [facility] (Lab) [address] [facility], [place], [address], 12/24/2023 13:06:02 12/18/19 24 12/18/2023 VITAM IN B12 vitamin B12 216 pg/mL 180-91 4 Samantha l Range : 180-9 14 pg/mL . Indet ermin ate Range : 145-1 80 pg/mL . Defic ient Range : <=145 pg/mL . Not Available [facility] (Lab) [address] [facility], [place], [address], 12/24/2023 13:06:02 12/18/19 24 12/18/2023 THYRO ID ANTIB MANN PANEL thyroglobuli n antibody <1.0 IU/mL <=3.9 Not Available [facility] (Lab) [address] [facility], [place], [address], 12/24/2023 13:06:03 12/18/19 24 12/18/2023 THYRO ID ANTIB MANN PANEL thyroperoxid ase antibodies 0.5 IU/mL 0.0-9. 0 This assay was perfo rmed using [employer] Coult er reage nts and test kits. Value s obtai axel with other assay metho ds or kits canno t be used inter [place] eably . Not Available [facility] (Lab) [address] [facility], [place], [address], 12/24/2023 13:06:03 12/18/19 24 12/18/2023 TESTO STERO [...] cteri stics have been deter mined by [employer] [facility] [place]. It has not been clear ed or appro lele by the U.S. Food and Drug Admin istra tion. This assay has been valid ated pursu ant to the CLIA regul ation s and is used for clini dc purpo ses. Not Available [facility] (Lab) [address] [facility], [place], [address], 12/24/2023 13:06:03 12/18/19 24 12/18/2023 TESTO STERO NE, FREE( DIALY SIS) AND TOTAL (LC/M S/MS) testosterone , free 1.2 pg/mL 0.1-6. 4 This test was devel oped and its allen tical perfo rmanc e albert cteri stics have been deter mined by [employer] ost[facility]off s James [place]. It has not been clear ed or appro lele by the U.S. Food and Drug Admin istra tion. This assay has been valid ated pursu ant to the CLIA regul ation s and is used for clini dc purpo ses. Perfo rming Organ izati on [facility]: Site ID: AMD Name: Suly Garciao ls Insti shakeel Addre ss: [id number] [employer] [place], [place] Direc tor: Fouzia Chase MD PhD Not Available [facility] (Lab) [address] [place], [address], 12/24/2023 13:06:03 12/18/19 24 12/18/2023 MAGNE SIUM, RBC magnesium RBC 4.5 mg/dL 4.0-6. 4 This test was devel oped and its allen tical perfo rmanc e albert cteri stics have been deter mined by [employer] [place]. It has not been clear ed or appro lele by the U.S. Food and Drug Admin istra tion. This assay has been valid ated pursu ant to the CLIA regul ation s and is used for clini dc purpo ses. Perfo rming Organ izati on Infor matio n: Site ID: AMD Name: [facility] rust Addre ss: [id number] [employer] [place], [place] Direc tor: Fouzia Chase MD PhD Not Available [facility] (Lab) [address] [facility], [place], [address], 12/24/2023 13:06:04 02/05/20 24 02/05/2024 DHEA SULFA TE DHEA-sulfate 325 ug/dL Femal e Range s Age(y ) Range (ug/d L) 10-15 34-28 0 15-20 65-36 8 20-25 148-4 07 25-35 99-34 0 35-45 61-33 7 45-55 35-25 6 55-65 19-20 5 65-75 9-246 > 75 12-15 4 Not Available [facility] (Lab) [address] [facility], [place], [address], 02/11/2024 19:14:30 02/05/20 24 02/05/2024 ESTRA DIOL [...] 154-3 243 pg/mL 2nd Trime ster 1561- 71787 pg/mL 3rd Trime ster 8525- >3000 0 pg/mL Not Available [facility] (Lab) [address] [place], [address], 02/11/2024 19:14:30 02/05/20 24 02/05/2024 PROGE STERO NE progesterone 5.13 NG/mL This assay was perfo rmed using [employer] ratio n reage nts and test kits. Value s obtai axel with other assay metho ds or kits canno t be used inter [facility] . Femal e Proge stero ne Range s: Folli cular phasE 0.06- 0.89 ng/mL Ovula tion phasE 0.12- 12.00 ng/mL Lutea l phasE 1.83- 23.90 ng/mL Postm enopa usal <0.05 -0.13 ng/mL Healt hy Pregn ant Women 1st Trime ster 11.0- 44.30 2nd Trime ster 25.40 -83.3 0 3rd Trime ster 58.70 -214. 00 Not Available [facility] (Lab) [address] [place], [address], 02/11/2024 19:14:31 02/05/20 24 02/05/2024 PROLA CTIN prolactin, total 9.56 NG/mL 4.79-2 3.30 This assay was perfo rmed using [employer] Corpo ratio n reage nts and test kits. Value s obtai axel with other assay metho ds or kits canno t be used inter [facility] eay . Not Available [facility] (Lab) [address] [place], [address], 02/11/2024 19:14:31 02/05/20 24 02/05/2024 LH (LUTE NIZIN G HORMO NE) LH 23.6 mIU/m L This assay was perfo rmed using [employer] ratio n reage nts and test kits. Value s obtai axel with other assay metho ds or kits canno t be used inter [facility] . Femal es Mid-F ollic ular: 2.4-1 2.6 mIU/m L Mid-C ycle: 14.0- 95.6 mIU/m L Mid-L uteal : 1.0-1 1.4 mIU/m L Postm enopa use: 7.7-5 8.5 mIU/m L Not Available [facility] (Lab) [address] [facility], [place], [address], 02/11/2024 19:14:32 02/05/20 24 02/05/2024 FSH FSH 8.0 mIU/m L This assay was perfo rmed using [employer]po ratio n reage nts and test kits. Value s obtai axel with other assay metho ds or kits canno t be used inter [facility] . Femal es Folli cular : 3.5-1 2.5 mIU/m L Ovula tion: 4.7-2 1.5 mIU/m L Lutea l: 1.7-7 .7 mIU/m L Postm enopa use: 25.8- 134.8 mIU/m L Not Available [facility] (Lab) [address] [facility], [place], [address], 02/11/2024 19:14:32 02/05/20 24 02/05/2024 TSH, REFLE X FREE T4 TSH 1.39 uIU/m L 0.30-5 .33 Not Available [facility] (Lab) [address] [place], [address], 02/11/2024 19:14:32 02/05/20 24 02/05/2024 HUMAN SEX HORMO NE ELSA NG GLOBU VENUS sex hormone binding globulin 48.7 nmole s/L 16.8-1 25.2 Not Available [facility] (Lab) [address] [place], [address], 02/11/2024 19:14:33 02/05/20 24 02/05/2024 VITAM IN B12 vitamin B12 376 pg/mL 180-91 4 Samantha l Range : 180-9 14 pg/mL . Indet ermin ate Range : 145-1 80 pg/mL . Defic ient Range : <=145 pg/mL . Not Available [facility] (Lab) [address], [place], [address], 02/11/2024 19:14:33 02/05/20 24 02/05/2024 VITAM IN D, 25-OH (TOTA L D2/D3 ) vitamin D, 25-hydroxy, total 63.4 NG/mL 30.0-1 00.0 Sugge stive of Defic iency : <20 ng/mL Sugge stive of Insuf ficie ncy: 20-29 ng/mL Sugge stive of Suffi cienc y: 30-10 0 ng/mL Sugge stive of Toxic ity: >150 ng/mL Not Available [facility] (Lab) [address], [place], [address], 02/11/2024 19:14:34 02/05/20 24 02/05/2024 HEMOG LOBIN [...] >8.0% Actio n sugge sted Not Available [facility] (Lab) [address], [place], [address], 02/11/2024 19:14:34 02/05/20 24 02/05/2024 TESTO STERO [...] cteri stics have been deter mined by [employer] [place]. It has not been clear ed or appro lele by the U.S. Food and Drug Admin istra tion. This assay has been valid ated pursu ant to the CLIA regul ation s and is used for clini dc purpo ses. Not Available [facility] (Lab) [address] [facility], [place], [address], 02/11/2024 19:14:34 02/05/20 24 02/05/2024 TESTO STERO NE, FREE( DIALY SIS) AND TOTAL (LC/M S/MS) testosterone , free 1.5 pg/mL 0.1-6. 4 This test was devel oped and its allen tical perfo rmanc e albert cteri stics have been deter mined by [employer] [facility] James [facility] [place]. It has not been clear ed or appro lele by the U.S. Food and Drug Admin istra tion. This assay has been valid ated pursu ant to the CLIA regul ation s and is used for clini dc purpo ses. Perfo rming Organ izati on [facility]: Site ID: AMD Name: [email or web address] jayy s James ls Insti tute Addre ss: [id number] [employer] [place], [place] Direc tor: Fouzia Chase MD PhD Not Available [facility] (Lab) [address] , [place], [address], 02/11/2024 19:14:34 02/05/20 24 02/05/2024 17-OH PROGE [...] cteri stics have been deter mined by [employer]. It has not been clear ed or appro lele by FDA. This assay has been valid ated pursu ant to the CLIA regul ation s and is used for clini dc purpo ses. Perfo rming Organ izati on Infor matio n: Site ID: EZ Name: [facility] [place] , Addre ss: [id number] [facility] [address] Direc tor: Nedra delgadillo MD,Ph D,ALEM Not Available [facility] (Lab) [address] [facility], [place], [address], 02/11/2024 19:14:35 12/26/19 24 12/26/2023 US, pelvi s No observ ation record ed. [email or web address] [place] [address], [place], [address], 12/26/2023 14:44:24 12/26/19 24 12/26/2023 US, trans vagin al No observ ation record ed. [email or web address] [place] [address], [place], [address], 12/26/2023 14:44:16 12/26/19 24 12/26/2023 US, pelvi s No observ ation record ed. [email or web address] [address], [place], [address], 12/26/2023 22:08:52 11/12/19 25 11/11/2024 MAMMO , scree lupe, bilat eral No observ ation record ed. [facility] (Mammography) [address], [place], [address], 11/12/2024 23:09:38 Result Notes None recorded. 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 3 12:02:30 Speciali zed medical examinat ion Completed 201005/15/2012 Gynecolo gical Examinat ion;Tae rded Elsewher e: No Locat ion: [facility] S ource: [employer] dajuan: N Practi ce ID: [id number] Felix lable Time: 01:00:00 PM Jolene patterson [facility] 12:02:41 Problem Notes None recorded. Procedures Surgical History Date Name Laterality Status Provider Name and Address Organization Details Recorded Time 023 IUD Removal completed Re Paez CNM [address], [place], [address], [place] [facility] 10/24/2022 12:46:16 023 Date of Last Pap Smear completed [facility] 10/24/2022 12:44:21 023 Most Recent Bone Density completed [facility] 10/24/2022 12:43:32 023 Date of Last Mammogram completed [facility] 10/24/2022 12:43:32 016 completed Jessica Erazo [facility] 08/29/2022 15:31:32 013 Thyroid Surgery completed [facility] 11/29/2022 19:33:59 997 Cholecystectomy completed [facility] 11/29/2022 19:33:40 Imaging Results Imaging Date Name Status LastModified by Organization Details LastModified Time 12/26/2023 US, pelvis completed [email or web address] [place] [address], [place], [address], 12/26/2023 14:44:24 12/26/2023 US, transvaginal completed [email or web address] [place] [facility] [address], [place], [address], 12/26/2023 14:44:16 12/26/2023 US, pelvis completed [email or web address] [address], [place], [address], 12/26/2023 22:08:52 11/11/2024 MAMMO, screening, bilateral active [facility] (Mammography) [address], [place], [address], 11/12/2024 23:09:38 Procedure Notes None recorded. Medical Equipment None Reported. Allergies Allergen ID Allergen Name Allergen Category Reaction Reaction Severity Criticality Documentation Date Start Date Code Code System Note Provider Name and Address Organization Details Recorded Time 99077 nitrofura ntoin medicatio n diarrhea moderate Not available 09/09/2020 7454 RxNorm Jessica Schroedte r null, [facility] 2 15:31:24 12516 codeine medicatio n dizziness moderate Not available 09/09/2020 2670 RxNorm Jessica Schroedte r [facility], [facility] 2 15:31:24 88258 ibuprofen medicatio n wheezing moderate Not available 09/09/2020 5640 RxNorm Jessica Schroedte r null, [facility] 2 15:31:24 41905 latex environme nt,medica tion rash severe Not available 09/09/2020 73008 91 RxNorm Jessica Schroedte r null, [facility] 2 15:31:24 98722 gabapenti n medicatio n flushing moderate Not available 08/29/2022 09664 RxNorm Jessica Schroedte r [facility], [facility] 2 15:31:24 30664 prednison e medicatio n Not available Not available Not available 10/24/2022 8640 RxNorm [facility], [facility] 3 12:43:49 Medications Name Sig Start [...] 100 mcg in 24hrs 08/29 completed Prescrib ed Elsewher e: Yes Loca tion: [facility] M odify By: jjohanna kohli DateTime : 05/12/20 19 01:30:00 PM [...] Prescrib ed Elsewher e: Yes [facility]: feng Garrett r [...] ed Elsewher e: No Locat ion: [facility] M odify By: feng Garrett r DateTime : 10/18/19 18 01:45:00 PM Not Available Not Available Not Available gabapenti n 300 mg capsule 12/17 completed Not Available Not Available Not Available Tylenol 325 mg tablet take 1 tablet by oral route every 4 hours as needed 05/12 completed Prescrib ed Elsewher e: Yes Loca tion: [facility] odify By: feng kohli DateTime : 07/31/20 11 01:00:00 PM Not [...] Elsewher e: Yes Loca tion: [facility] odify By: feng Garrett r DateTime : [...] ed Elsewher e: No Locat ion: [facility] odify By: carolina christian DateTime : 08/03/20 11 03:58:32 PM Not Available Not Available Not Available duloxetin e 20 mg capsule,d elayed release 12/12 completed Not Available Not Available Not Available Calcio José Antonio 500 mg tablet take 1 by Oral route every day 05/12 completed Prescrib ed Elsewher e: Yes Loca tion: [facility] odify By: feng Garrett r DateTime : 11/19/19 14 10:15:00 AM Not Available Not Available Not Available quetiapin e 50 mg tablet TAKE 1 TABLET BY MOUTH EVERY DAY AT BEDTIME active Not Available Not Available No t Available B-12 Plus 5,000 mcg-100 mcg sublingua l tablet 05/12 completed Prescrib ed Elsewher e: Yes Loca tion: [facility] odify By: feng Garrett r DateTime : 07/27/20 15 10:00:00 AM Not Available Not Available Not Available Vitamin B-12 500 mcg lozenges 11/19 completed Prescrib ed Elsewher e: Yes Loca tion: [facility] odify By: cheyenne christian DateTime : 07/31/20 11 01:00:00 PM Not Available Not Available Not Available Multi Vitamin 9 mg iron/15 mL oral liquid 05/12 completed Prescrib ed Elsewher e: No Locat ion: [facility] odify By: feng Garrett r DateTime : 11/19/19 14 10:15:00 AM Not Available Not Available Not Available biotin 1 mg capsule 08/29 completed Prescrib ed Elsewher e: Yes Loca tion: [facility] odify By: feng Garrett r DateTime : [...] Updated DateTime 04/03/2023 168.91 cm 30.4 kg/m2 02028.14 g 150 mm[Hg] 92 mm[Hg] Jolene Ivan [facility] 3 12:47:31 Date Recorded Body height Body mass index (BMI) Body weight Heart rate Systolic blood pressure Diastolic blood pressure Systolic blood pressure Diastolic blood pressure Provider Name and Address Organization Details Last Updated DateTime 4 168.91 cm 22.3 kg/m2 68310.9 3 g 105 /min 145 mm[Hg] 91 mm[Hg] 138 mm[Hg] 91 mm[Hg] Bethany Morton [facility] 4 12:10:37 Date Recorded Body height Body mass index (BMI) Body weight Systolic blood pressure Diastolic blood pressure Provider Name and Address Organization Details Last Updated DateTime 11/15/2023 168.91 cm 23.4 kg/m2 57195.08 g 116 mm[Hg] 78 mm[Hg] Jolene Ivan [facility] 4 13:09:28 Date Recorded Body height Body mass index (BMI) Body weight Systolic blood pressure Diastolic blood pressure Provider Name and Address Organization Details Last Updated DateTime 12/18/2023 168.91 cm 22.7 kg/m2 22111.71 g 110 mm[Hg] 73 mm[Hg] Jolene Ivan [facility] 4 13:05:18 Social History Question Answer Notes LastModified by Organizat ion Details LastModified Time Tobacco Smoking Status Never Smoker [facility] 04/03/2023 12:47:48 What Is Your Level Of Alcohol Consumption? None Information not available 08/29/2022 Are You Blind Or Do You Have Difficulty Seeing? Yes Information n ot available 08/29/2022 What Is Your Level Of Caffeine Consumption? None [email or web address] Information not available 12/18/2023 How Much Tobacco [...] Type Of Diet Are You Following? SPECIFIC [email or web address] Information n ot available 04/03/2023 What Is The Highest Grade Or Level Of School You Have Completed Or The Highest Degree You Have Received? 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 [id number] [email or web address] Information not available 12/18/2023 Do You Use Any Illicit Or Recreational Drugs? No Information not available 08/29/2022 Do You Use Sunscreen Routinely? No Information not available 08/29/2022 Have You Used IV Drugs? No Information not available 08/29/2022 Sex: Unknown Functional Status Question Answer Note LastModified by Organizat ion Details LastModified Time Do you have difficulty walking or climbing stairs? No [email or web address] Information not available 04/03/2023 Are you able to walk? YESWOREST Information not available 08/29/2022 Are you able to care for yourself? Yes [email or web address] Information not available 04/03/2023 Do you have difficulty dressing or bathing? No [email or web address] Information not available 04/03/2023 What is your exercise level? Occasional [email or web address] Information not available 12/18/2023 Mental Status None [...] (Food, seasonal, environmental ) N Other Y Breast Cancer N Drug/Latex Allergies/Reactions Y Blood Transfusion N Dermatologic Disorders Y Lung Disease N [...] SNOMED-CT Code Diagnosis ICD10 Code Diagnosis Note [id number] TRICIA Jin [place] [address],[place] [address] 08/29/2022 15:14:04 08/29/2022 17:02:50 Lesion of vulva 821596479 N90.89 Lesion no longer present, resolved on its own over the weekend per patientNor mal vulvar exam todaySTI testing declined [facility] management 907122243 Z30.9 Mirena IUD inserted 11/16/2014, due for removal by 11/16/2022 She would like IUD removed, does not desire BC moving forward. Not SALast pap 2019RTC for WWE / IUD removal Time spent in visit is a total of 20 mins with at least 50% of visit consisting of counseling and review of plan of care. [id number] Re Paez CNM [place] [address],[place] [address] 10/24/2022 12:13:10 10/24/2022 13:33:06 Gynecologic examination 15481041 Z01.419 Screening mammography 24 337770 Z12.31 [id number] Re Paez CNM [place] [address] [place] [address] 12/12/2022 14:47:15 12/12/2022 15:32:30 Venereal disease screening 852725088 Z11.3 cultures sent, draw blood today Vaginitis 58373796 N76.0 Menorrhagia 412347073 N9 2.0 check cbc, declines bcm to regulate [id number] Re Paez CNM [place] [address] [place] [address] 04/03/2023 12:35:35 04/03/2023 14:19:19 Candidiasis of skin 04987574 B37.2 Irregular periods 065215 07 N92.6 resolved would like wellness and metabolic labs checked Anxiety 70942665 F41.9 supplement s encouraged counseling xanax prn from pcp [id number] LARA MARTIN MD [place] [address],[place] [address] 10/30/2023 11:56:24 10/31/2023 08:45:37 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 - patient was previously seen by outside provider and told hormones were low- will recheck today and discuss further treatment after resutls Cyst of left ovary 53171 41004 2205876 N83.202 - had episode of pelvic pain, now improved- CT scan at hospital showed 2x3cm ovarian cyst- will obtain US and tumor markers [id number] Re Paez [facility] [address],[facility] [address] 11/15/2023 12:39:22 11/15/2023 14:00:42 Loss of hair 225611938 L65.9 Anxiety 74592988 F41.9 supplement s encouraged counseling , [facility] from pcpadd testostero ne discussed se risks and benefits including masculiniz ation of featurespt will continue supplement s from hormone clinic [id number] Re Paez [facility] [address],[facility] [place] [address] 12/18/2023 12:30:35 12/18/2023 14:18:10 Fatigue 39152698 R53.83 continue to see analilia lemus for anxiety/de pression/s mery check labs, consider daily progestero ne or cyclical progestero neawait labs Loss of hair 980691238 L 65.9 [id number] [facility] [address],[place] [address] 12/26/2023 11:51:24 12/26/2023 13:05:32 Cyst of left ovary 5036290148 1379789 N83.202 Health Concerns Section Related Observation LastModified by Organization Detai ls LastModified Time None Recorded Concern Status LastModified by Organization Details LastModified Time None Recorded Advance Directives Directive None Recorded Payers Encounter Date Sequence Insurance Name Policy Number Policy Bergeron Covered Member ID Bergeron Member ID Guarantor Name 04/03/2023 1 [facility] - DOS ON OR AFTER 21 (MEDICAID REPLACEMENT - HMO) Nimco Billingsley [id number] Nimco Renae Jose Cruz 10/30/2023 1 [facility] ON OR AFTER 03/23/21 (MEDICAID REPLACEMENT - HMO) Nimco Renae Jose Cruz [id number] Nimco Renae Jose Cruz 11/15/2023 1 [facility] ON OR AFTER 03/23/21 (MEDICAID REPLACEMENT - HMO) Nimco M Jose Cruz [id number] Nimco Renae Jose Cruz 12/18/2023 1 [facility] ON OR AFTER 03/23/21 (MEDICAID REPLACEMENT - HMO) Nimco Batool Jose Cruz [id number] Nimco M Jose Cruz 12/26/2023 1 [facility] ON OR AFTER 03/23/21 (MEDICAID REPLACEMENT - HMO) Nimco M Jose Cruz [id number] Nimco Renae Jose Cruz Notes Date Note Type Note Provider Name and Address Organization Details Recorded Time 3 text/html f/u irreg cycles, yeast, wanting to get vaginal culture and lab worklost weight after iud removalexercising daily, supplements through the chiropractoranxiety has xanax from pcp asking about counseling Re Paez CNM [address], [place], [address], [facility] 04/03/2023 14:09:57 4 text/html Patient [...] recommendations. LARA MARTIN MD [address], [place], [address], [facility] 10/31/2023 00:11:56 4 text/html pt [...] night Re Paez CNM [address], [place], [address], [place] [facility] 11/15/2023 13:58:53 4 text/html fu med check, testosterone creamseeing analilia mariah flume maker and now on seraquil, sleeping , but doesnt like the way she feelsfunctional med doc thinks she needs progesterone, also doesn't think testosterone is workingwants labs checked Re Paez CNM [address], [place], [address], [facility] 12/18/2023 14:10:26 OBGyn Episode Ob Episode Information Episode Created Date Number of Fetuses Patient Bloodtype Patient rh Status Prepregnancy Weight lbs Domestic Partner Domestic Partner Phone Father Name Miller Head Status 11/30/19 1 CLOSED Fetus Data First Name Last Name Admitted to NICU Weight (g) Sex Living Outcome Pediatric Complications Fetus ID Race Codes Race Delivery Type 3486.76 1704 M Full Term 59345 Vaginal Delivery Rickey Calculation Initial Rickey Date [...] Domestic Partner Domestic Partner Phone Father Name Miller Head Status 11/30/19 1 CLOSED Fetus Data First Name Last Name Admitted to NICU Weight (g) Sex Living Outcome Pediatric Complications Fetus ID Race Codes Race Delivery Type , Spontane ous 84599 Rickey Calculation Initial Rickey Date Initial Exam [...] Domestic Partner Domestic Partner Phone Father Name Miller Head Status 08/29/20 22 1 CLOSED Fetus Data First Name Last Name Admitted to NICU Weight (g) Sex Living Outcome Pediatric Complications Fetus ID Race Codes Race Delivery Type 3656.85 8704 F Full Term 78318 Vaginal Delivery Rickey Calculation Initial Rickey Date [...] Domestic Partner Domestic Partner Phone Father Name Miller Head Status 08/29/20 22 1 CLOSED Fetus Data First Name Last Name Admitted to NICU Weight (g) Sex Living Outcome Pediatric Complications Fetus ID Race Codes Race Delivery Type 3373.36 3704 M Full Term 70425 Vaginal Delivery Rickey Calculation Initial Rickey Date [...] Domestic Partner Domestic Partner Phone Father Name Miller Head Status 08/29/20 22 1 CLOSED Fetus Data First Name Last Name Admitted to NICU Weight (g) Sex Living Outcome Pediatric Complications Fetus ID Race Codes Race Delivery Type 3656.85 8704 F Full Term 31232 Vaginal Delivery Rickey Calculation Initial Rickey Date [...] Domestic Partner Domestic Partner Phone Father Name Miller Head Status 11/30/19 23 1 CLOSED Fetus Data First Name Last Name Admitted to NICU Weight (g) Sex Living Outcome Pediatric Complications Fetus ID Race Codes Race Delivery Type 3486.76 1704 F Full Term 80081 Vaginal Delivery Rickey Calculation Initial Rickey Date [...]
--- OUTSIDE RECORDS SUMMARY | 2024-11-18 16:14 | XMS_ITS | Clinical Summary ---
Author Organization [facility] Address [address] [facility] [place] [address] Phone Care Team Providers Care Paranormal Investigator Name Role Phone Berta Davenport MD Primary Care Provider [phone] Social History Tobacco Use Types Packs/Day Years [...] this topic Insurance on file Care Teams Paranormal Investigator Relationship Specialty Start Date End Date Berta Davenport MD [facility] [place] [address] PCP - General Swine Extension Field Specialist 02/29/16
--- OUTSIDE RECORDS SUMMARY | 2024-11-18 16:14 | XMS_ITS | Patient Health Summary ---
Author Organization [facility] Address [address] [facility] [place] [address] Care Team Providers Care Change Person Name Role Phone Berta Davenport MD Primary Care Provider [phone] Note from [facility],non-owned Affiliates and Associated Physician Practices is amultiple site organization consisting of ambulatory clinics and hospital sitesin [place], [place] and [place]. This disclosure is being madepursuant to the Care Everywhere program and may not contain all information available regarding this patient. Last updated 18.[facility] Allergies * Buspirone(Unknown,Palpitations) -Low Criticality * Codeine(Anaphylaxis) [...] 24.47 05/26/2021 12:15 PM CDT Procedures * ME US SOFT TISS HEAD&NCK R-T IMG(Performed 02/24/2024) [...] of thyroid gland (HCC), Postoperative hypothyroidism * ME US SOFT TISS HEAD&NCK R-T IMG(Performed 05/28/2021) [...] for Hyperparathyroidism (HCC), Vitamin D deficiency * ME US SOFT TISS HEAD&NCK R-T IMG(Performed 09/24/2018) [...] METABOLIC PANEL (CALCIUM TOTAL)(Performed 07/16/2017) * CYTOLOGY NON-LOAN REVIEW ANALYST PANEL (STL)(Performed 12/26/2016) * T4 FREE(Performed 10/18/2015) * PTH INTACT W/O CALCIUM(Performed 10/18/2015) Results * ME US SOFT TISS HEAD&NCK R-T IMG (02/24/2024 [...] 0.9 IU/mL 02/25/2024 7:08 PM CDT [facility] ([facility]) Comment: Thyroglobulin Antibody measured by Fredo Ed Methodology It should be noted that the presence of thyroglobulin antibodies may not be pathogenic nor diagnostic, especially at very low levels. The assay technical support consultant has found that four percent of individuals without evidence of thyroid disease or autoimmunity will have positive TgAb levels up to 4 IU/mL. Blood BLOOD SPECIMEN / Unknown Lab Venipuncture / Unknown 02/24/2024 12:31 PM CDT 02/24/2024 12:45 PM CDT Narrative [facility] ([facility]) - 02/25/2024 7:08 PM CDT Performed at: 01 - [facility] [address] [place], [place] [id number] Home Delivery Driver: Wes Bautista PhD, Phone: [phone] Rafal Patricio MD LAB - CHEMISTRY ORD ERABLES [facility] ([facility]) [address] [place] [address], [facility] * THYROGLOBULIN BY ADRIANA RFLXED (02/24/2024 12:31 PM CDT) Only the most recent of5 resultswithin the time period is included. Thyroglobulin by ADRIANA 22.8 1.5 - 38.5 ng/mL 02/25/2024 7:08 PM CDT [facility] ([facility]) Comment: According to the National Academy of [...] is 0.1 ng/mL Thyroglobulin measured by Fredo [place] Immunometric Assay Blood BLOOD SPECIMEN / Unknown Lab Venipuncture / Unknown 02/24/2024 12:31 PM CDT 02/24/2024 12:45 PM CDT Narrative [facility] ([facility]) - 02/25/2024 7:08 PM CDT Performed at: [address] [place], [place] [address] [place], [place] [id number] Home Delivery Driver: Wes Bautista PhD, Phone: [phone] Rafal Patricio MD LAB - CHEMISTRY ORD ERABLES Performing Organization Address City/[facility]/ZIP Co de Phone Number [facility] ([facility]) [address] [place] [address], [facility] * PTH INTACT ([facility]) (02/24/2024 12:31 PM CDT) Only the most recent of2 resultswithin the time period is included. PTH Intact 56.2 8.0 - 77.0 pg/mL 02/24/2024 1:29 PM CDT [facility] Blood BLOOD SPECIMEN / Unknown Lab Venipuncture / Unknown 02/24/2024 12:31 PM CDT 02/24/2024 12:53 PM CDT Rafal Patricio MD LAB - CHEMISTRY ORD ERABLES [address] [address], [facility] [phone] * TSH REFLEX FREE T4 (02/24/2024 12:31 PM CDT) TSH 1.587 0.350 - 4.940 uIU/mL 02/24/2024 1:45 PM [address]T [facility] Blood BLOOD SPECIMEN / Unknown Lab Venipuncture / Unknown 02/24/2024 12:31 PM CDT 02/24/2024 12:53 PM CDT Rafal Patricio MD LAB - CHEMISTRY ORD ERABLES [address] [address], [facility] [phone] * T4 FREE DIRECT DIALYSIS (02/24/2024 12:31 PM CDT) Only the most recent of2 resultswithin the time period is included. Pathologist [facility] T4 Free Direct Dialysis 1.1 1.1 - 2.4 ng/dL 02/28/2024 1:30 PM CDT [facility] ([facility]) Comment: FREE T4 BY EQUIL DIALYSIS-TMS: REFERENCE INTERVALS 1ST TRIMESTER ...... 0.7 - 2.0 ng/dL 2ND TRIMESTER ...... 0.7 - 2.1 ng/dL 3RD TRIMESTER ...... 0.5 - 1.6 ng/dL INTERPRETIVE INFORMATION: FT4 ED-TMS Some medications may induce transient changes in FT4 concentrations. This test is not recommended for patients currently on heparin treatment as FT4 concentrations may be falsely elevated. Performed By: [facility] [address] [place] [address] Pin Setter: Aly Wagoner MD, PhD CLIA Number: [id number] Blood BLOOD SPECIMEN / Unknown Lab Venipuncture / Unknown 02/24/2024 12:31 PM CDT 02/24/2024 12:45 PM CDT Rafal Patricio MD LAB - CHEMISTRY ORD ERABLES [facility]) [address] * ACTH (02/24/2024 12:31 PM CDT) Only the most recent of2 resultswithin the time period is included. ACTH 9.8 7.2 - 63.3 pg/mL 02/26/2024 1:23 AM CDT [facility] ([facility]) Comment: INTERPRETIVE INFORMATION: Adrenocorticotropic Hormone Reference interval based on samples collected between 7 a.m. and 10 a.m. No reference intervals established for p.m. collections. Pediatric reference values are the same as adults (Acta Paediatr Scand 1981;70:341-345). This assay measures intact ACTH 1-39; some types of synthetic ACTH and ACTH fragments are not detected by this assay. Performed By: [facility] [address] [place] [address] Pin Setter: Aly Wagoner MD, PhD CLIA Number: [id number] Blood BLOOD SPECIMEN / Unknown Lab Venipuncture / Unknown 02/24/2024 12:31 PM CDT 02/24/2024 12:43 PM CDT Rafal Patricio MD LAB - CHEMISTRY ORD ERABLES [facility] Matter and Form [facility]) [address] [place] [address] * PROLACTIN (02/24/2024 12:31 PM CDT) Prolactin 3.9 2.8 - 29.2 ng/mL 02/26/2024 3:32 AM CDT [facility] ([facility]) Comment: Interpretive Information: 9.7- >200.0 ng/mL Postmenopausal 1.8-20.3 ng/mL Testing prolactin in patients with suspected prolactinoma during is not recommended. REFERENCE INTERVAL: Prolactin Access complete set of age- and/or gender-specific reference intervals for this test in the [employer] Laboratory Test Directory ([employer]!). Performed By: [facility] [address] [place] [address] Pin Setter: Aly Wagoner MD, PhD CLIA Number: [id number] Blood BLOOD SPECIMEN / Unknown Lab Venipuncture / Unknown 02/24/2024 12:31 PM CDT 02/24/2024 12:45 PM CDT Rafal Patricio MD LAB - CHEMISTRY ORD ERABLES [facility] [employer] ([facility]) [address] * SOMATOMEDIN C (IGF-1) (02/24/2024 12:31 PM CDT) [facility] Insulin-Like Growth Factor-1 177 70 - 225 ng/mL 02/26/2024 7:11 AM CDT [facility] ([facility]) Blood BLOOD SPECIMEN / Unknown Lab Venipuncture / Unknown 02/24/2024 12:31 PM CDT 02/24/2024 12:45 PM CDT Narrative [facility] ([facility]) - 02/26/2024 7:11 AM CDT Performed at: [address] [place] [phone] Home Delivery Driver: Sushila Guevara MD, Phone: [phone] Rafal Patricio MD LAB - CHEMISTRY ORD ERABLES [facility] ([facility]) [address] [place] [address] * VITAMIN D 25-HYDROXY (02/24/2024 12:31 PM CDT) Only the most recent of6 resultswithin the time period is included. Pathologist [facility] Vitamin D, 25 Hydroxy 68.8 30.0 - 80.0 ng/mL 02/24/2024 1:45 PM CDT [facility] Comment: The recommendations for 25-Hydroxy [...] Patricio MD LAB - CHEMISTRY ORD ERABLES [facility] [address] [place] [address], [facility] [phone] * (ABNORMAL) RENAL FUNCTION PANEL (02/24/2024 12:31 PM CDT) Only the most recent of3 resultswithin the time period is included. BUN 18 7 - 26 mg/dL 02/24/2024 1:38 PM [facility] Creatinine 0.71 0.56 - 0.96 mg/dL 02/24/2024 1:38 PM [facility] Sodium 143 136 - 145 mmol/L 02/24/2024 1:38 PM [facility] Potassium 4.5 3.5 - 4.5 mmol/L 02/24/2024 1:38 PM [facility] Chloride 107 98 - 107 mmol/L 02/24/2024 1:38 PM [facility] CO2 26 22 - 29 mmol/L 02/24/2024 1:38 PM [facility] Glucose 78 70 - 115 mg/dL 02/24/2024 1:38 PM [facility] Albumin 3.8 3.4 - 5.0 g/dL 02/24/2024 1:38 PM [facility] Calcium 9.6 8.4 - 10.2 mg/dL 02/24/2024 1:38 PM [facility] Phosphorus 3.1 2.9 - 5.1 mg/dL 02/24/2024 1:38 PM [facility] Anion Gap 10 6 - 16 02/24/2024 1:38 PM [facility] BUN/Creatinine Ratio 25(H) 7 - 23 02/24/2024 1:38 PM [facility] Osmolality Calculated 297(H) 275 - 295 mOsm/kg 02/24/2024 1:38 PM CDT [facility] eGFR by CKD-EPI >90 >=90 mL/min/1.7 3 m2 02/24/2024 1:38 PM CDT [facility] Blood BLOOD SPECIMEN / Unknown Lab Venipuncture / Unknown 02/24/2024 12:31 PM CDT 02/24/2024 12:53 PM CDT Rafal Patricio MD LAB - CHEMISTRY ORD ERABLES [facility] [address] [place] [address], [facility] [phone] * TSH (10/03/2022 11:03 AM TUBER MACHINE CUTTER) Only the most recent of14 resultswithin the time period is included. TSH 2.550 0.450 - 4.500 uIU/mL [facility] INSURANCE BILL Comment:FASTING Blood BLOOD SPECIMEN / Unknown 10/03/2022 11:03 AM TUBER MACHINE CUTTER 10/03/2022 Narrative Resulting Agency Comment Lab Testing performed at: [facility] [address] [place] [phone] Rafal Patricio MD LAB - CHEMISTRY ORD ERABLES [facility] INSURANCE BILL [address] [place] [address] * T4 TOTAL + T4 FREE (12/01/2021 7:34 AM TUBER MACHINE CUTTER) Only the most recent of3 resultswithin the time period is included. T4 Free 1.09 0.82 - 1.77 ng/dL [facility] INSURANCE BILL T4 Total 7.5 4.5 - 12.0 ug/dL [facility] INSURANCE BILL Comment:FASTING Blood BLOOD SPECIMEN / Unknown 12/01/2021 7:34 AM TUBER MACHINE CUTTER 12/01/2021 Narrative Resulting Agency Comment Lab Testing performed at: [facility] [address] [facility] [phone] Rafal Patricio MD LAB - CHEMISTRY ORD ERABLES Performing Organization Address City/[facility]/ZIP Co de Phone Number [facility] INSURANCE BILL [address] [place] [address] * T3 TOTAL+FREE PANEL (12/01/2021 7:34 AM TUBER MACHINE CUTTER) Only the most recent of3 resultswithin the time period is included. T3 Total 128 71 - 180 ng/dL [facility] INSURANCE BILL T3 Free 3.4 2.0 - 4.4 pg/mL [facility] INSURANCE BILL Comment:FASTING Blood BLOOD SPECIMEN / Unknown 12/01/2021 7:34 AM TUBER MACHINE CUTTER 12/01/2021 Narrative Resulting Agency Comment [facility] performed [facility]: [facility] [address] [facility] [phone] Rafal Patricio MD LAB - CHEMISTRY ORD ERABLES Performing Organization Address [facility] Co de Phone Number [facility] INSURANCE BILL [address] [place] [address] * THYROID STIMULATING IMMUNOGLOBULIN (TSI) (12/01/2021 7:34 AM TUBER MACHINE CUTTER) Only the most recent of4 resultswithin the time period is included. Thyroid Stimulating Immunoglobulin 0.46 0.00 - 0.55 IU/L [facility] INSURANCE BILL Comment:FASTING Blood BLOOD SPECIMEN / Unknown 12/01/2021 7:34 AM TUBER MACHINE CUTTER 12/01/2021 Narrative Resulting Agency Comment Lab Testing performed at: [facility] [phone] Rafal Patricio MD LAB - CHEMISTRY ORD ERABLES Performing Organization Address City/[facility]/ZIP Co de Phone Number [facility] INSURANCE BILL [address] [place] [address] * (ABNORMAL) TSH RECEPTOR ANTIBODY (12/01/2021 7:34 AM TUBER MACHINE CUTTER) Only the most recent of3 resultswithin the time period is included. Thyrotropin Receptor Antibody 4.65(H) 0.00 - 1.75 IU/L [facility] INSURANCE BILL Comment:FASTING Blood BLOOD SPECIMEN / Unknown 12/01/2021 7:34 AM TUBER MACHINE CUTTER 12/01/2021 Narrative Resulting Agency Comment Lab Testing performed at: [address] [phone] Rafal Patricio MD LAB - CHEMISTRY ORD ERABLES [facility] INSURANCE BILL [address] [place] [address] * ME US SOFT TISS HEAD&NCK R-T IMG (05/28/2021 [...] Resulting Agency Comment Lab Testing performed at: [address] [phone] Rafal Patricio MD LAB - SEROLOGY ORDE BRAULIO Performing Organization Address City/[facility]/ZIP Co de Phone Number [facility] INSURANCE BILL [address] [place] [address] * MAGNESIUM BLOOD (02/10/2021 1:02 PM CDT) Pathologist [facility] Magnesium 2.3 1.6 - 2.3 mg/dL [facility] INSURANCE BILL Comment:FASTING Blood BLOOD SPECIMEN / Unknown 02/10/2021 1:02 PM CDT 02/10/2021 Narrative Resulting Agency Comment Lab Testing performed at: [address] [phone] Rafal Patricio MD LAB - CHEMISTRY ORD ERABLES Performing Organization Address City/[facility]/ZIP Co de Phone Number [facility] INSURANCE BILL [address] [place] [address] * (ABNORMAL) BASIC METABOLIC PANEL (CALCIUM TOTAL) [...] Resulting Agency Comment [facility] performed [facility]: [facility] [address] [place] [phone] Rafal Patricio MD LAB - CHEMISTRY [place] Performing Organization Address City/[facility] Co de Phone Number [facility] INSURANCE BILL [address] [place] [address] * T4 FREE (07/18/2020 12:55 PM CDT) Only the most recent of9 resultswithin the time period is included. Pathologist [facility] T4 Free 0.92 0.82 - 1.77 ng/dL [facility] INSURANCE BILL Comment:FASTING Blood BLOOD SPECIMEN / Unknown 07/18/2020 12:55 PM CDT 07/18/2020 Narrative Resulting Agency Comment Lab Testing performed at: [facility] [address] [facility] [phone] Don Monteiro MD LAB - CHEMISTRY [place] Performing Organization Address [facility] Co de Phone Number [facility] INSURANCE BILL [address] [place] [address] * THYROID PEROXIDASE ANTIBODY (04/15/2020 8:38 AM CDT) Thyroid Peroxidase TPO Antibody <9 0 - 34 IU/mL [facility] INSURANCE BILL Comment:FASTING Blood BLOOD SPECIMEN / Unknown 04/15/2020 8:38 AM CDT 04/15/2020 Narrative Resulting Agency Comment [facility]: [facility] [address] [facility] [phone] Don Monteiro MD LAB - CHEMISTRY [place] [facility] INSURANCE BILL [address] [place] [address] * T3 FREE (04/15/2020 8:38 AM CDT) T3 Free 3.3 2.0 - 4.4 pg/mL [facility] INSURANCE BILL Comment:FASTING Blood BLOOD SPECIMEN / Unknown 04/15/2020 8:38 AM CDT 04/15/2020 Narrative Resulting Agency Comment Lab Testing performed at: [facility] [employer] [facility] [phone] Don Monteiro MD LAB - CHEMISTRY [place] Performing Organization Address [facility]/ZIP Co de Phone Number [facility] INSURANCE BILL [address] [place] [address] * HEMOGLOBIN A1C (02/11/2020 12:58 PM CDT) Pathologist [facility] Hemoglobin A1c 5.2 4.8 - 5.6 % [facility] INSURANCE BILL Comment: . Prediabetes: 5.7 - 6.4 Diabetes: >6.4 Glycemic control for adults with diabetes: <7.0 FASTING 02/11/2020 12:5 8 PM CDT 02/11/2020 Narrative Resulting Agency Comment Lab [facility] performed [facility]: [facility] [employer] [facility] [phone] Don Monteiro MD LAB - CHEMISTRY [place] [facility] INSURANCE BILL [address] [place] [address] * COMPREHENSIVE METABOLIC PANEL (02/11/2020 12:58 PM [...] Resulting Agency Comment [facility]: [facility] [address] [facility] [phone] Don Monteiro MD LAB - CHEMISTRY [place] [facility] INSURANCE BILL [address] [place] [address] * (ABNORMAL) TSH+FREE T4 PANEL (08/14/2019 10:37 AM TUBER MACHINE CUTTER) Only the most recent of2 resultswithin the time period is included. TSH 0.006(L) 0.450 - 4.500 uIU/mL [facility] INSURANCE BILL T4 Free 1.25 0.82 - 1.77 ng/dL [facility] INSURANCE BILL Comment:FASTING 08/14/2019 10:3 7 AM TUBER MACHINE CUTTER 08/14/2019 Narrative Resulting Agency Comment Lab [facility] performed [facility]: [facility] [address] [facility] [phone] Don Monteiro MD LAB - CHEMISTRY [place] [facility] INSURANCE BILL [address] [place] [address] * IMAGING/RADIOLOGY/XRAY RESULTS ORDER (04/14/2019 11:39 AM CDT) Anatomical Region Laterality Modality Other Narrative 04/14/2019 11:39 AM CDT Ordered by an unspecified provider. Scanned Document IMAGING * LAB RESULTS ORDER (10/10/2018 7:02 AM TUBER MACHINE CUTTER) Narrative 10/10/2018 7:02 AM TUBER MACHINE CUTTER Ordered by an unspecified provider. Scanned Document LAB - THERAPEUTIC DR AGRAWAL MONITORING ORDERABLES * ME US SOFT TISS HEAD&NCK R-T IMG (09/24/2018 12:49 PM TUBER MACHINE CUTTER) Narrative Rafal Patricio MD - 09/24/2018 12:49 PM TUBER MACHINE CUTTER Rafal Patricio MD 09/24/2018 12:49 PM Ultrasound [...] CORTISOL BLOOD AM (01/22/2018 9:46 AM CDT) [facility] Cortisol AM 7.7 6.2 - 19.4 ug/dL [facility] INSURANCE BILL Comment:FASTING Blood BLOOD SPECIMEN / Unknown 01/22/2018 9:46 AM CDT 01/22/2018 Narrative Resulting Agency Comment [facility] [address] [facility] [phone] Aleta Nieves MD LAB - CHEMISTRY [place] [facility] INSURANCE BILL [address] [place] [address] * CYTOLOGY NON-LOAN REVIEW ANALYST PANEL (STL) (12/26/2016 12:30 PM CDT) Pathologist [facility] Cytology Non-Business Process Architect Accession No: [id number] Reference: [id number] Specimen: LEFT, THYROID Clinical History: LEFT THYROID [...] by Caesar Fernandes MD. Electronically signed 12/28/2016 [facility] Other (qualifier value) 12/26/2016 12:30 PM CDT 12/27/2016 11:17 AM CDT Narrative [facility] - 12/28/2016 12:55 PM CDT Collection Date->12/26/16 Collection Time->12:30 PM Specimen A->Thyroid, Left Lobe nodule fine needle aspiration biopsy Aleta Nieves MD LAB - PATHOLOGY/CYTO LOGY ORDERABLES [facility] Care Teams Change Person Relationship Specialty Start Date End Date Berta Davenport MD [facility] [place] [id number] PCP - General 12/27/16
--- OUTSIDE RECORDS SUMMARY | 2024-11-18 16:14 | XMS_ITS | Clinical Summary ---
Author Organization [email or web address] Address [address] [facility] [place] [address] Care Team Providers Care Senior Php Web Developer Name Role Phone Berta Davenport MD Primary Care Provider Source Comments [email or web address],non-owned Affiliates and Associated Physician Practices is amultiple site organization consisting of ambulatory clinics and hospital sitesin [place], [place], [place] and [place]. This disclosure is being madepursuant to the Care Everywhere program and may not contain all information available regarding this patient. Last updated 18.[email or web address] Allergies Active Allergy Reactions Criticality Noted Date [...] Office Visit [facility] - Endocrinology [address] [place] [address], [place] [address] Rafal Patricio MD [address] [place] [address] Div [place] [address] Health Maintenance Due Date Last Done Comments [...] age to complete this topic Care Teams Senior Php Web Developer Relationship Specialty Start Date End Date Berta Davenport MD [facility] [place] [address] PCP - General 12/27/16
--- OUTSIDE RECORDS SUMMARY | 2024-11-18 16:14 | XMS_ITS | Encounter Summary ---
Author Organization [facility] Healthcare Address [address] [place] [address] Care Team Providers Care Paramedic Rn Name Role Phone Unknown, Notinfsekou Primary Care Provider Unavail able Lloyd Vera MD Primary Care Provider [phone] Caterina Mansfield NP Primary Care Provider + Neil Amaral MD Primary Care Provider [phone] Encounter Details Date Type Department Care Team (Late st Contact Info) Description 04/11/2020 Telephone [facility] [address] [facility] 4[address] [place] [address] Eden Bernstein RN Social History Tobacco Use Types Packs/Day Years Used Date Smoking Tobacco: Never Comments Unknown Sex and Gender Information Value Date Recorded Sex Assigned at Not on file 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 Gender Identity Female 02/13/2022 6:35 AM CDT Sexual Orientation Straight 02/13/2022 6: 35 AM CDT documented as of this encounter Plan of Treatment Not on file documented as of this encounter Visit Diagnoses Not on filedocumented in this encounter Additional Health Concerns Infection Onset Date Last Indicated Resolved Time COVID: Suspected 10/27/2023 10/27/2023 10/27/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
--- OUTSIDE RECORDS SUMMARY | 2024-11-18 16:14 | XMS_ITS | Referral Summary ---
Author Organization [facility] Address [address] [facility] [place] [address] Care Team Providers Care Valve Steamer Name Role Phone Berta Davenport MD Primary Care Provider [phone] [facility],non-owned Affiliates and Associated Physician Practices is amultiple site organization consisting of ambulatory clinics and hospital sitesin [place], [place] and [place]. This disclosure is being madepursuant to the Care Everywhere program and may not contain all information available regarding this patient. Last updated 18.[facility] Allergies Active Allergy Reactions Criticality Noted Date [...] Office Visit [facility] - Endocrinology [address] [place] [address], [place] [address] Rafal Patricio MD [address] [place] [address] [place] [address] Care Teams Valve Steamer Relationship Specialty Start Date End Date Berta Davenport MD [facility] [place] [address] PCP - General 12/27/16
--- OUTSIDE RECORDS SUMMARY | 2024-11-18 16:14 | XMS_ITS | Encounter Summary ---
Author Organization [facility] Address [address] [address] Care Team Providers Care Gettering Operator Name Role Phone Berta Davenport MD Primary Care Provider [phone] Reason for Visit * Reason Onset Date Comments Forms 02/28/2024 Encounter Details Date Type Department Care Team (Late st Contact Info) Description 02/28/2024 Telephone [facility] - Centralized Scheduling [address] [place] [address] Rafal Patricio MD [facility] [place] [address] Forms Social History Tobacco Use Types Packs/Day [...] Jeovany Gomez And prior auth rep from [facility] is calling regarding Mrs. Billingsley's upcomming appointment on 03/01. States that she has a request for the patients MRI. Please call the [facility] to expedite to case for Saturday so she can get the MRI. Callback Number: [phone] documented in this encounter Plan of Treatment Upcoming Encounters Date Type Department Care Team (Late st Contact Info) Description 03/01/2025 1:00 PM CDT Office Visit [facility] - Endocrinology [address] [place] [address], [place] [address] Rafal Patricio MD [address] [place] [address] [place] [address] documented as of this encounter Visit Diagnoses Not on filedocumented in this encounter Care Teams Gettering Operator Relationship Specialty Start Date End Date Berta Davenport MD [facility] [place] [address] PCP - General 12/27/16 documented as of this encounter
== END 2024-11-18 14:11 | disposition home or self-care (01) ==
PROVIDERS: PCP Emergency Medicine; Visit Provider Emergency Medicine
DX: E04.2 Nontoxic multinodular goiter (principal); G47.00 Insomnia, unspecified; H53.9 Unspecified visual disturbance
CPT/HCPCS: 70544; 76536